=== PATIENT | male | born 1960 | race Caucasian/White ===

== ENCOUNTER 2020-11-17 09:06 | Outpatient (REF) | payer OTHER, SELFPAY ==
[2020-11-17 11:17] LABS: Alanine Aminotransferase 23 U/L (0-40); Albumin Level 4.2 g/dL (3.5-5.0); Alkaline Phosphatase 78 U/L (39-117); Anion Gap 17 (12-20); Aspartate Amino Transferase 17 U/L (5-37); Bilirubin Total 0.3 mg/dL (0.0-1.0); Blood Urea Nitrogen 38 mg/dL (9-16); Calcium 9.9 mg/dL (8.4-10.2); Carbon Dioxide 23 mmol/L (22-29); Chloride 100 mmol/L (96-108); Estimated Glomerular Filt Rate 37; Glucose Random 252 mg/dL (60-115); Potassium 4.6 mmol/L (3.3-5.1); Sodium 135 mmol/L (135-145); Total Protein 7.1 g/dL (6.5-8.0)
[2020-11-17 11:26] LABS: Creatinine Urine 252.58 mg/dL; Microalbum/Creatinine Ratio Ur 26.5 ug/mg cr
== END 2020-11-17 09:07 | disposition home or self-care (01) ==
LOC: HO.WFDLDS 09:06
PROVIDERS: Visit Provider Family Medicine
DX: E11.65 Type 2 diabetes mellitus with hyperglycemia (principal); I10 Essential (primary) hypertension
CPT/HCPCS: 36415; 80053; 82043

== ENCOUNTER 2021-03-04 09:46 | Outpatient (REF) | payer OTHER, SELFPAY ==
[2021-03-04 11:57] LABS: Anion Gap 15 (12-20); Blood Urea Nitrogen 32 mg/dL (9-16); Calcium 9.5 mg/dL (8.4-10.2); Carbon Dioxide 25 mmol/L (22-29); Chloride 102 mmol/L (96-108); Estimated Glomerular Filt Rate 43; Glucose Random 258 mg/dL (60-115); Potassium 4.8 mmol/L (3.3-5.1); Sodium 137 mmol/L (135-145)
== END 2021-03-04 09:47 | disposition home or self-care (01) ==
LOC: HO.WFDLDS 09:46
PROVIDERS: Visit Provider Family Medicine
DX: Z00.00 Encounter for general adult medical examination without abnormal findings (principal); N19 Unspecified kidney failure
CPT/HCPCS: 36415; 80048

== ENCOUNTER 2021-06-08 11:38 | Outpatient (REF) | payer OTHER, SELFPAY ==
--- NOTE | ~2021-06-08 | XR_ITS ---
EXAMINATION: XR RIBS, RIGHT CLINICAL INFORMATION: Pleurodynia COMPARISON: No prior imaging available at the time of dictation. TECHNIQUE: 3 views of the right ribs were obtained. One view of the chest was obtained XR/XR ribs RT min 3V w CXR1V FINDINGS/IMPRESSION: Mildly displaced right lateral sixth rib fracture. Questionable possible additional right posterior 10th rib fracture. If definitive characterization is warranted CT chest could be obtained. Lungs are clear. No consolidation, pneumothorax, or pleural effusion. The cardiomediastinal silhouette and pulmonary vasculature are normal.
== END 2021-06-08 11:39 | disposition home or self-care (01) ==
LOC: HO.XRAY 11:38
PROVIDERS: PCP Family Medicine; Visit Provider Family Medicine
DX: R07.81 Pleurodynia (principal)
CPT/HCPCS: 71101

== ENCOUNTER 2021-06-28 11:26 | Outpatient (REF) | payer OTHER, SELFPAY ==
[2021-06-28 14:16] LABS: Estimated Average Glucose 255 mg/dL; Hemoglobin A1c % 10.5 %
[2021-06-28 14:18] LABS: Anion Gap 15 (12-20); Blood Urea Nitrogen 27 mg/dL (9-16); Calcium 9.9 mg/dL (8.4-10.2); Carbon Dioxide 26 mmol/L (22-29); Chloride 104 mmol/L (96-108); Estimated Glomerular Filt Rate 54; Glucose Random 234 mg/dL (60-115); Potassium 4.8 mmol/L (3.3-5.1); Sodium 140 mmol/L (135-145)
[2021-06-28 14:30] LABS: Creatinine Urine 113.54 mg/dL; Microalbum/Creatinine Ratio Ur 425.4 ug/mg cr
[2021-06-28 14:44] LABS: Prostate Specific Antigen Scr 0.41 ng/mL (<0.05-4.0)
== END 2021-06-28 11:27 | disposition home or self-care (01) ==
LOC: HO.WFDLDS 11:26
PROVIDERS: Visit Provider Family Medicine
DX: Z00.00 Encounter for general adult medical examination without abnormal findings (principal); Z12.5 Encounter for screening for malignant neoplasm of prostate; N19 Unspecified kidney failure; I10 Essential (primary) hypertension; R73.01 Impaired fasting glucose
CPT/HCPCS: 36415; 80048; 82043; 83036; 84153

== ENCOUNTER 2021-06-28 11:59 | Outpatient (REF) | payer OTHER, SELFPAY ==
--- NOTE | ~2021-06-28 | XR_ITS ---
EXAMINATION: XR CHEST CLINICAL INFORMATION: Other nonspecific findings and symptoms involving the respiratory system. History of recent right rib fracture. COMPARISON: Previous chest and right rib x-rays May 2021 TECHNIQUE: 2 views of the chest were obtained. FINDINGS: The cardiac and mediastinal contours are stable. The lungs are clear. There is no pleural effusion or pneumothorax. There are displaced right lateral fifth and sixth rib fractures. There is adjacent pleural thickening. There are degenerative changes of the spine. XR/XR chest 2V IMPRESSION: Displaced right lateral fifth and sixth rib fractures and adjacent right lateral pleural thickening. No evidence for acute disease in the chest.
== END 2021-06-28 12:00 | disposition home or self-care (01) ==
LOC: HO.XRAY 11:59
PROVIDERS: PCP Family Medicine; Visit Provider Family Medicine
DX: R09.89 Other specified symptoms and signs involving the circulatory and respiratory systems (principal)
CPT/HCPCS: 71046

== ENCOUNTER 2022-02-22 09:17 | Outpatient (REF) | payer OTHER, SELFPAY ==
--- NOTE | ~2022-02-22 | XR_ITS ---
EXAMINATION: XR HAND, RIGHT XR HAND, LEFT CLINICAL INFORMATION: Pain in the right hand. COMPARISON: None TECHNIQUE: 3 views of each hand. FINDINGS: RIGHT HAND: Interphalangeal Joints: There is advanced osteoarthritis of the second and fifth DIP joint manifested by marked joint space narrowing and marginal osteophytes. Less prominent osteoarthritis of the IP joint of the thumb, third DIP joint and fourth DIP joint manifested by marked joint space narrowing and small marginal osteophytes. Metacarpophalangeal Joints: Normal Bone and Joints in the Wrist: Normal Arterial calcification. No marginal erosions. LEFT HAND: Interphalangeal Joints: There is severe osteoarthritic changes involving the second, fourth and fifth DIP joints manifested by joint space narrowing and marginal osteophytes. Less prominent mild osteoarthritic change of the third DIP joint and IP joint of the thumb result in joint space narrowing and marginal osteophytes. Metacarpophalangeal Joints: Unremarkable Wrist: Unremarkable Arterial calcification noted. XR/XR hand LT min 3V IMPRESSION: Right Hand: Osteoarthritis involving multiple joints with advanced osteoarthritis of the second and fifth DIP joints. Left Hand: Osteoarthritis involving multiple joints with advanced degenerative changes involving the second, fourth and fifth DIP joints.
--- NOTE | ~2022-02-22 | XR_ITS ---
EXAMINATION: XR KNEE, RIGHT CLINICAL INFORMATION: Pain in the right knee. COMPARISON: X-ray of the right knee June 2015 AP upright. TECHNIQUE: AP and lateral of the right knee. FINDINGS: Questionable lucency over the posterior tibial plateau on the lateral view only is not confirmed on the AP projection. Compartments unremarkable. No effusion. Arterial calcification present. XR/XR knee RT 2V IMPRESSION: Subtle lucency overlying the posterior lateral plateau of uncertain significance. This may be artifactual. Cannot exclude subtle nondisplaced incomplete fracture.
--- NOTE | ~2022-02-22 | XR_ITS ---
EXAMINATION: XR LUMBOSACRAL SPINE CLINICAL INFORMATION: Low back pain COMPARISON: None TECHNIQUE: Three views of the lumbosacral spine. FINDINGS: Vertebral bodies normally aligned. There is endplate osteophyte formation present at the L2-L3 or L3-L4 levels indicative of mild degenerative disc changes. Vertebral height normal without fracture. Facets unremarkable. Partially visualized pelvis including sacroiliac joints are normal. XR/XR lumbar spine 2-3V IMPRESSION: Mild multilevel spondylosis of lumbar sacral spine
--- NOTE | ~2022-02-22 | XR_ITS ---
EXAMINATION: XR HAND, RIGHT XR HAND, LEFT CLINICAL INFORMATION: Pain in the right hand. COMPARISON: None TECHNIQUE: 3 views of each hand. FINDINGS: RIGHT HAND: Interphalangeal Joints: There is advanced osteoarthritis of the second and fifth DIP joint manifested by marked joint space narrowing and marginal osteophytes. Less prominent osteoarthritis of the IP joint of the thumb, third DIP joint and fourth DIP joint manifested by marked joint space narrowing and small marginal osteophytes. Metacarpophalangeal Joints: Normal Bone and Joints in the Wrist: Normal Arterial calcification. No marginal erosions. LEFT HAND: Interphalangeal Joints: There is severe osteoarthritic changes involving the second, fourth and fifth DIP joints manifested by joint space narrowing and marginal osteophytes. Less prominent mild osteoarthritic change of the third DIP joint and IP joint of the thumb result in joint space narrowing and marginal osteophytes. Metacarpophalangeal Joints: Unremarkable Wrist: Unremarkable Arterial calcification noted. XR/XR hand RT min 3V IMPRESSION: Right Hand: Osteoarthritis involving multiple joints with advanced osteoarthritis of the second and fifth DIP joints. Left Hand: Osteoarthritis involving multiple joints with advanced degenerative changes involving the second, fourth and fifth DIP joints.
[2022-02-22 10:30] LABS: C Reactive Protein 0.38 mg/dL (< or = 0.50); Rheumatoid Factor < 15.0 IU/mL (<15.0)
[2022-02-22 10:50] LABS: Erythrocyte Sedimentation Rate 39 MM/HR (0-15)
== END 2022-02-22 09:18 | disposition home or self-care (01) ==
LOC: HO.LAB 09:17
PROVIDERS: PCP Family Medicine; Visit Provider Internal Medicine Rheumatology
DX: M79.641 Pain in right hand (principal); M79.642 Pain in left hand; M25.561 Pain in right knee; M54.50 Low back pain, unspecified; M25.50 Pain in unspecified joint
CPT/HCPCS: 36415; 72100; 73130; 73560; 85652; 86140; 86431

== ENCOUNTER 2022-03-20 15:12 | Outpatient (REF) | payer OTHER, SELFPAY ==
--- NOTE | ~2022-03-20 | MR_ITS ---
EXAMINATION: MR KNEE WITHOUT CONTRAST, RIGHT CLINICAL INFORMATION: Right knee pain medially. COMPARISON: Right knee radiographs dated 02/22/2022. TECHNIQUE: MRI of the knee without contrast was performed using routine sequences on a high-field scanner. FINDINGS: MENISCI: Medial Meniscus: Attenuation with increased oblique tibial articular surface signal through the posterior aspect of the meniscal body extending to the posterior horn. Lateral Meniscus: Mild inner margin fraying of the meniscal body. LIGAMENTS: Cruciate: Intact. Collateral: Intact. EXTENSOR MECHANISM: Intact. ARTICULAR CARTILAGE/BONE: Patellofemoral Compartment: Mild patellar articular cartilage signal heterogeneity with tiny marginal osteophytes. Medial Compartment: Within the medial aspect of the medial tibial plateau, there is focal cortical depression with underlying low T1/T2 signal measuring 0.6 x 0.4 cm (AP by ML). Prominent underlying marrow edema as well as adjacent periosteal and soft tissue edema, consistent with a nondisplaced subchondral fracture. Lateral Compartment: Intact articular cartilage. JOINT FLUID AND BURSAE: Trace joint effusion. MR/MR knee RT wo con IMPRESSION: 1. Oblique tibial articular surface tear of the posterior medial meniscal body and posterior horn. 2. Underlying, minimally depressed subchondral fracture within the adjacent medial tibial plateau with prominent associated marrow edema as well as adjacent soft tissue edema. 3. Minimal inner margin fraying of the lateral meniscal body. 4. Mild patellar arthrosis. Trace joint effusion.
== END 2022-03-20 15:13 | disposition home or self-care (01) ==
LOC: HO.MRI 15:12
PROVIDERS: Visit Provider Internal Medicine Rheumatology
DX: M25.561 Pain in right knee (principal)
CPT/HCPCS: 73721

== ENCOUNTER 2022-03-29 12:51 | Outpatient (REF) | payer OTHER, SELFPAY ==
[2022-03-29 14:28] LABS: Appearance Urine Clear; Color Urine Yellow; Glucose Urine UA Negative (Negative); Leukocyte Esterase Urine Negative (Negative); Nitrite Urine Negative (Negative); Urine Blood Negative (Negative); Urine Ketones Negative (Negative); Urine Protein Negative (Neg-Trace)
[2022-03-29 15:11] LABS: Alanine Aminotransferase 20 U/L (0-40); Albumin Level 4.4 g/dL (3.5-5.0); Alkaline Phosphatase 77 U/L (39-117); Anion Gap 18 (12-20); Aspartate Amino Transferase 16 U/L (5-37); Bilirubin Total 0.4 mg/dL (0.0-1.0); Blood Urea Nitrogen 30 mg/dL (9-16); Calcium 9.9 mg/dL (8.4-10.2); Carbon Dioxide 23 mmol/L (22-29); Chloride 102 mmol/L (96-108); Estimated Glomerular Filt Rate 51; Glucose Random 111 mg/dL (60-115); Potassium 4.7 mmol/L (3.3-5.1); Sodium 138 mmol/L (135-145); Total Protein 7.5 g/dL (6.5-8.0)
[2022-03-29 15:13] LABS: Creatinine Urine 75.35 mg/dL; Microalbum/Creatinine Ratio Ur 95.5 ug/mg cr
== END 2022-03-29 12:52 | disposition home or self-care (01) ==
LOC: HO.WFDLDS 12:51
PROVIDERS: Visit Provider Family Medicine
DX: Z00.00 Encounter for general adult medical examination without abnormal findings (principal); E11.65 Type 2 diabetes mellitus with hyperglycemia; I10 Essential (primary) hypertension
CPT/HCPCS: 36415; 80053; 81003; 82043

== ENCOUNTER 2022-04-26 11:05 | Outpatient (REF) | payer OTHER, SELFPAY ==
[2022-04-26 15:04] LABS: Influenza A PCR NEGATIVE (Negative); Influenza B PCR NEGATIVE (Negative); Resp Syncy Virus RNA Qual PCR NEGATIVE (Negative); SARS COV2 PCR INHOUSE NEGATIVE (Negative)
== END 2022-04-26 11:06 | disposition home or self-care (01) ==
LOC: HO.LAB 11:05
PROVIDERS: Visit Provider Nurse Practitioner Family
DX: Z20.822 Contact with and (suspected) exposure to COVID-19 (principal); R09.89 Other specified symptoms and signs involving the circulatory and respiratory systems
CPT/HCPCS: 0241U

== ENCOUNTER 2022-04-29 10:28 | Outpatient (REF) | payer OTHER, SELFPAY ==
--- NOTE | ~2022-04-29 | XR_ITS ---
EXAMINATION: XR CHEST CLINICAL INFORMATION: Cough. COMPARISON: 06/28/2021 chest radiographs. TECHNIQUE: 2 views of the chest were obtained. FINDINGS: No significant abnormality is noted involving the heart, lungs, mediastinum, bony thorax or soft tissues. XR/XR chest 2V IMPRESSION: No acute cardiopulmonary process.
== END 2022-04-29 10:29 | disposition home or self-care (01) ==
LOC: HO.HMGCX 10:28
PROVIDERS: PCP Family Medicine; Visit Provider Physician Assistant
DX: R05.9 Cough, unspecified (principal)
CPT/HCPCS: 71046

== ENCOUNTER 2022-07-05 10:03 | Outpatient (REF) | payer OTHER, SELFPAY ==
[2022-07-05 12:23] LABS: Anion Gap 17 (12-20); Blood Urea Nitrogen 28 mg/dL (9-16); Calcium 9.6 mg/dL (8.4-10.2); Carbon Dioxide 24 mmol/L (22-29); Chloride 103 mmol/L (96-108); Estimated Glomerular Filt Rate 49; Glucose Random 112 mg/dL (60-115); Potassium 4.8 mmol/L (3.3-5.1); Sodium 139 mmol/L (135-145)
== END 2022-07-05 10:04 | disposition home or self-care (01) ==
LOC: HO.WFDLDS 10:03
PROVIDERS: Visit Provider Family Medicine
DX: Z00.00 Encounter for general adult medical examination without abnormal findings (principal); N18.9 Chronic kidney disease, unspecified
CPT/HCPCS: 36415; 80048

== ENCOUNTER → 2022-09-13 13:29 | Outpatient (BNVA) | payer OTHER, SELFPAY | PROVIDERS: PCP Family Medicine; Visit Provider Internal Medicine Endocrinology, Diabetes & Metabolism | DX: E11.65 Type 2 diabetes mellitus with hyperglycemia (principal) | CPT/HCPCS: 82947 ==

== ENCOUNTER → 2022-10-30 08:53 | Outpatient (BNVA) | payer OTHER, SELFPAY | PROVIDERS: PCP Family Medicine; Visit Provider Dietitian, Registered | DX: E11.65 Type 2 diabetes mellitus with hyperglycemia (principal) | CPT/HCPCS: 97802 ==

== ENCOUNTER → 2022-11-14 07:55 | Outpatient (BNVA) | payer OTHER, SELFPAY | PROVIDERS: PCP Family Medicine; Visit Provider Registered Nurse Diabetes Educator ==

== ENCOUNTER 2022-12-11 10:17 | Outpatient (REF) | payer OTHER, SELFPAY | END 2022-12-11 10:18 | disposition home or self-care (01) | LOC: HO.LAB 10:17 | PROVIDERS: PCP Family Medicine; Visit Provider Internal Medicine Endocrinology, Diabetes & Metabolism | DX: E11.65 Type 2 diabetes mellitus with hyperglycemia (principal) | CPT/HCPCS: 36415; 80061 ==

== ENCOUNTER → 2022-12-14 07:59 | Outpatient (BNVA) | payer OTHER, SELFPAY | PROVIDERS: PCP Family Medicine; Visit Provider Internal Medicine Endocrinology, Diabetes & Metabolism ==

== ENCOUNTER 2022-12-25 09:06 | Outpatient (AMB) | payer OTHER, SELFPAY ==
[2022-12-25 09:18] VITALS: BMI 32.0
--- NOTE | 2022-12-25 09:18 | A.OFFVIS_ITS ---
Intake VS Expanded 12/25/22 09:18 Height 6 ft Weight 236 lb 5.369 oz BMI 32.0 Intake Visit Reasons: T2DM Allergies Penicillins [PENICILLINS] Allergy (Intermediate, Verified 12/14/22 08:05) RASH/HIVES Sulfa (Sulfonamide Antibiotics) Allergy (Unknown, Verified 12/14/22 08:05) Unknown HPI Nutrition Presentation Details Pt presents for MNT follow up for T2DM Pt reports working on including lean protein foods in diet and reducing on empty calorie snacks Typical meal B: high protein slim fast L: Sand with eggs salad, or turkey with lettuce /tomato, yogurt or may eat out (fish sand or burger small fries) D: swordfish and or poultry with potatoes and broccoli- following healthy plate method Snack : fruit or yogurt or glucerna bar or protein bars Pt reports taking one a day men's [employer] Hel[employer] multivitamin Physical activity: using stairs -however limited due to toe infection - reports he is followed by PCP, currently in treatment Most Recent Diabetes Results: Cholesterol 144 mg/dL 12/11/22 HDL Cholesterol 43 mg/dL 12/11/22 Triglycerides 93 mg/dL 12/11/22 Creatinine 1.46 mg/dL (0.5-1.4) H 07/05/22 Blood Urea Nitrogen 28 mg/dL (9-16) H 07/05/22 Sodium 139 mmol/L (135-145) 07/05/22 Potassium 4.8 mmol/L (3.3-5.1) 07/05/22 Chloride 103 mmol/L (96-108) 07/05/22 Carbon Dioxide 24 mmol/L (22-29) 07/05/22 Calcium 9.6 mg/dL (8.4-10.2) 07/05/22 [facility] Surgical History History of testicular surgery Hx of left knee surgery Family History Father No problems noted. Mother No problems noted. Social History Housing: House Alcohol intake: current Alcohol intake frequency: holidays/special occasions only Patient Tobacco Use Status: Never used Tobacco e-Cigarette/Vaping Use: Never Used Second Hand Smoke Exposure: No service: No Current occupational status: employed Current occupational exposures/hazards: No Cognitive needs: No Hearing needs: No Vision needs: Yes (glasses) Assessment & Plan Assessment & Plan (1) Type 2 diabetes mellitus with hyperglycemia: Code(s): E11.65 - Type 2 diabetes mellitus with hyperglycemia Plan wt 118 kg (10/2022) , wt : 107 kg ( 12/2022) Est kcal needs as per MSJ: 2408 (40% carb, 30% protein/fat) Est fluid needs as per 25-30 ml/d: 2572-1696 ml/d Est prot per day as per 1 g/kg bw: 118 Recommend fiber intake : 8-10 g per day and gradually increase to 35-38 g for men or as tolerated Recommend sodium intake per day : less than 1500 mg less than 2000 mg Educated patient on: ( R = reviewed V = verbalizes understanding N/R = needs review N/A = not applicable * Food sources of carbohydrate, adequate serving sizes and its role in various health conditions: R * Differences between complex carbohydrates a simple carbohydrates, role of fiber in diet: R * Differences between types of fats and role in diet (mono on saturated fat fatty acids, saturated fatty acids, trans fats): R * probiotic sources of foods : R * Food sources of sodium in salt and healthy modifications for heart health in kidney health: R * Vitamins and minerals: NR * Healthy plate method concept: R , V * Physical activity: Benefits a precaution: R, V * Hypoglycemia protocol (rule of 15): R * Dietary prevention of Hyperglycemia: R , V Patient Instructions: Include a serving of a probiotic source of foods in your diet - see list provided Keep hydrated by having water with meals Keep physically active as able Coding Level of Care Code Nutr Indiv Subseq (66422) Diagnoses Type 2 diabetes mellitus with hyperglycemia E11.65 Time Spent (min) 30
== END 2022-12-25 09:39 | disposition home or self-care (01) ==
PROVIDERS: PCP Family Medicine; Visit Provider Dietitian, Registered
DX: E11.65 Type 2 diabetes mellitus with hyperglycemia (principal)

== ENCOUNTER → 2022-12-25 09:06 | Outpatient (BNVA) | payer OTHER, SELFPAY | PROVIDERS: Visit Provider Dietitian, Registered | DX: E11.65 Type 2 diabetes mellitus with hyperglycemia (principal); Z71.3 Dietary counseling and surveillance | CPT/HCPCS: 97803 ==

== ENCOUNTER 2022-12-27 16:23 | Outpatient (AMB) | payer OTHER, SELFPAY ==
--- NOTE | 2022-12-27 16:38 | A.OFFPC_ITS ---
Vital Signs 12/27/22 16:43 Height 6 ft Weight 237 lb BMI 32.1 BP 126/78 Blood Pressure Location Lt brachial Position Sitting Pulse 79 Pulse Source Pulse Oximeter Pulse Oximetry (%) 97 Oxygen Delivery Method Room Air Intake Visit Reasons: f/u diabetes, hypertension and knee pain Intake Note: Patient is here with follow up on diabetes, hypertension, and right knee pain. Allergies Penicillins [PENICILLINS] Allergy (Intermediate, Verified 12/27/22 16:44) RASH/HIVES Sulfa (Sulfonamide Antibiotics) Allergy (Unknown, Verified 12/27/22 16:44) Unknown Medication List - Last Reconciled 12/27/22 by Mark Leavitt MD betamethasone dipropionate 0.05% 1 appl topical BID PRN blood sugar diagnostic (FreeStyle Lite Strips) DX: E11.9, test blood sugar 2 times a day, 90 days blood-glucose sensor (Global Experience G7 Sensor device) As directed change every 10 days cane As directed dapagliflozin propanediol (Farxiga) 5 mg PO DAILY hydrochlorothiazide 25 mg PO DAILY insulin glargine (Basaglar KwikPen U-100 Insulin) 34 units (0.34 mL) subcut DAILY insulin syringe-needle U-100 (BD Insulin Syringe Ultra-Fine) As directed lancets (FreeStyle Lancets) As directed levothyroxine 300 mcg PO DAILY 90 days meloxicam 15 mg PO DAILY metformin 500 mg PO BID metoprolol succinate ER 12.5 mg (1/2 x 25 mg) PO DAILY 30 days pen needle, diabetic (BD Bhavani 2nd Gen Pen Needle) Once Daily As directed, 90 days simvastatin 20 mg PO QPM 0 days sulfamethoxazole-trimethoprim 800-160 mg (Bactrim DS) 1 tab PO BID tirzepatide (Mounjaro) 5 mg (0.5 mL) subcut QWEEK valsartan 40 mg PO BID 90 days Tobacco use date assessed: 12/27/22 Fall risk assessment: No Falls in past year Dental Screening Dental Screen Date: 12/27/22 Did you have a dental visit in the last 12 months?: Yes Did you have a dental problem in the last 6 months where you did not have access to dental care?: No Was dental information given to patient?: No HPI f/u diabetes, hypertension and knee pain HPI Details 62 y/o male presents to f/u diabetes, hypertension, knee pain and renal failure. Had increased his basal insulin from 32 units b.i.d. to 34 units am and 32 units pm Had continued his glipizide, Trulicity and metformin. Had recently seen Dr. Kuhn, Endocrinology. Pt reports most recent A1c is 7.1%. Lipid panel drawn 12/11/22. Reviewed labs with pt. Triglycerides 93. TC 144. LDL 83. HDL 43. Blood pressure today is 126/78. He is on hydrochlorothiazide 25mg, metoprolol 12.5mg and valsartan 40mg b.i.d. He continues to use a gel for his knee pain which has been working. He has not been using his meloxicam. He is requesting audo testing. He reports has been noticing hearing changes. He has complaints of restless legs. [facility] Surgical History History of testicular surgery Hx of left knee surgery Family History Father No problems noted. Mother No problems noted. Social History Housing: House Alcohol intake: current Alcohol intake frequency: holidays/special occasions only Patient Tobacco Use Status: Never used Tobacco e-Cigarette/Vaping Use: Never Used Second Hand Smoke Exposure: No service: No Current occupational status: employed Current occupational exposures/hazards: No Cognitive needs: No Hearing needs: No Vision needs: Yes (glasses) Questionnaire Thrive Questionnaire Date Thrive assessed: 07/05/22 NATI-7 AMB Questionnaire NATI-7 Date NATI - 7 assessed: 07/05/22 Source: Developed by Drs. Malick Sanders, Ann Anthony, Yao Pacheco and colleagues, with an educational brigida from [employer]. Review of Systems Const Denies chills, Denies fatigue, Denies fever(s), Denies headache(s) and Denies weakness ENT Denies dizziness and Denies headache(s) Card Denies dyspnea Resp Denies cough, Denies dyspnea, Denies wheezing and Denies other (shortness of breath) Musc Denies numbness and Denies tingling Neuro Denies dizziness, Denies headache(s), Denies numbness, Denies tingling and Denies weakness Psych Denies anxiety and Denies depression Endo Denies fatigue Aller/Immun Denies wheezing Physical exam (Primary Care) Vital Signs: Last Vital Signs Pulse 79 12/27/22 16:43 BP 126/78 12/27/22 16:43 Pulse Ox 97 12/27/22 16:43 Oxygen Delivery Method Room Air 12/27/22 16:43 BMI result Body Mass Index 32.1 Tobacco/Smoking Status: Tobacco use Status Tobacco use date assessed 12/27/22 12/27/22 16:53 Patient Tobacco Use Status Never used Tobacco 12/27/22 16:39 e-Cigarette/Vaping Use Never Used 12/27/22 16:39 Thrive Assessment: Date of Thrive Assessment Date Thrive assessed 07/05/22 12/27/22 16:39 Const General: well developed; No acute distress Nutritional Appearance: well nourished Orientation/consciousness: patient oriented x3 HENMT Head: Yes normocephalic and Yes atraumatic Eyes General: appearance normal, both eyes and all related structures Pupils: Equal, round and reactive pupils present EOM: EOMs intact bilaterally Resp Effort & Inspection: normal respiratory effort Auscultation: clear to auscultation bilaterally Cardio Rate: regular rate Rhythm: regular rhythm Heart sounds: S1 normal heart sound present, S2 normal heart sound present, no gallops, no murmurs and no rubs Neuro General: patient oriented x3 and gait normal Cranial nerves: Yes Equal, round and reactive pupils present Psych Affect: normal affect Assessment and Plan Assessment & Plan (1) Hypertension, essential: Code(s): I10 - Essential (primary) hypertension Plan: Blood pressure is well controlled Goal is less than 140/90 Continue current medication regimen (2) Type 2 diabetes mellitus with hyperglycemia: Code(s): E11.65 - Type 2 diabetes mellitus with hyperglycemia Plan: Estimated A1c by continuous monitor is 7.1% Continue current medication regimen and follow-up with endocrinology, Dr. Kuhn (3) Chronic kidney disease: Code(s): N18.9 - Chronic kidney disease, unspecified Plan: History of mild chronic kidney disease Recheck creatinine level (4) Knee pain: Code(s): M25.569 - Pain in unspecified knee Plan: This resolved with injection therapy (5) Change in hearing: Code(s): H91.90 - Unspecified hearing loss, unspecified ear Plan: Check audiology (6) Neoplasm of uncertain behavior of skin: Code(s): D48.5 - Neoplasm of uncertain behavior of skin Plan: Left cheek lesion Referred to Dermatology (7) Restless leg syndrome: Code(s): G25.81 - Restless legs syndrome Plan: Check labs Briefly discussed medication but patient would like to think about this (8) Screening for colon cancer: Code(s): Z12.11 - Encounter for screening for malignant neoplasm of colon Orders: Orders Comprehensive Met. Panel Today N18.9 - Chronic kidney disease, unspecified Prostate Specific Antigen Scr Today N18.9 - Chronic kidney disease, unspecified, Z12.5 - Encounter for screening for malignant neoplasm of prostate Ferritin Today N18.9 - Chronic kidney disease, unspecified IRON PROFILE Today N18.9 - Chronic kidney disease, unspecified Microalbumin, Random (w Creat) Today I10 - Essential (primary) hypertension, N18.9 - Chronic kidney disease, unspecified Complete Blood Count Auto Diff Today N18.9 - Chronic kidney disease, unspecified, Z00.00 - Encounter for general adult medical examination without abnormal findings UA and rflx microscopic Today N18.9 - Chronic kidney disease, unspecified, Z 00.00 - Encounter for general adult medical examination without abnormal findings Referrals Audiology Referral H91.90 - Unspecified hearing loss, unspecified ear Gastroenterology Referral Z12.11 - Encounter for screening for malignant neoplasm of colon Dermatology Referral D48.5 - Neoplasm of uncertain behavior of skin Coding Level of Care Code Est Pt Level 4 (35869) Diagnoses Hypertension, essential I10 Type 2 diabetes mellitus with hyperglycemia E11.65 Chronic kidney disease N18.9 Knee pain M25.569 Change in hearing H91.90 Neoplasm of uncertain behavior of skin D48.5 Restless leg syndrome G25.81 Screening for colon cancer Z12.11
[2022-12-27 16:43] VITALS: BP 126/78; PULSE 79; O2SAT 97; BMI 32.1
== END 2022-12-27 17:49 | disposition home or self-care (01) ==
PROVIDERS: PCP Family Medicine; Visit Provider Family Medicine
DX: I12.9 Hypertensive chronic kidney disease with stage 1 through stage 4 chronic kidney disease, or unspecified chronic kidney disease (principal); E11.65 Type 2 diabetes mellitus with hyperglycemia; N18.9 Chronic kidney disease, unspecified; D48.5 Neoplasm of uncertain behavior of skin; G25.81 Restless legs syndrome; Z12.11 Encounter for screening for malignant neoplasm of colon
CPT/HCPCS: 99214

== ENCOUNTER 2022-12-28 07:42 | Outpatient (REF) | payer OTHER, SELFPAY ==
[2022-12-28 07:54] LABS: MANUAL DIFF FLAG NO
[2022-12-28 09:13] LABS: Basophils Percent Auto 0.5 % (0-2); Eosinophils Absolute Auto 0.1 X10*3/uL (0.0-0.4); Hematocrit 33.5 % (42.0-52.0); Hemoglobin 10.9 g/dl (14.0-18.0); Imm Gran Abs Auto 0.01 X10*3/uL (0.00-0.03); Imm Gran Pct Auto 0.2 % (0.0-0.4); Lymphocytes Absolute Auto 1.8 X10*3/uL (1.2-4.9); Lymphocytes Percent Auto 29.1 % (20-40); Mean Corpuscular HGB Conc 32.5 g/dl (31.0-36.0); Mean Corpuscular Hemoglobin 27.3 pg (27.0-33.0); Mean Corpuscular Volume 83.8 fL (80.0-98.0); Mean Platelet Volume 9.3 fL (9.4-12.4); Monocytes Absolute Auto 0.7 X10*3/uL (0.1-1.2); Monocytes Percent Auto 11.8 % (2-11); Neutrophils Absolute Auto 3.4 x10*3/uL (2.0-8.3); Neutrophils Percent Auto 56.4 % (45-73); Platelet Count 303 X10*3/uL (160-400); Red Cell Distribution Width 13.2 % (11.0-16.0)
[2022-12-28 09:39] LABS: Appearance Urine Clear; Color Urine Yellow; Glucose Urine UA 500 mg/dL (Negative); Leukocyte Esterase Urine Negative (Negative); Nitrite Urine Negative (Negative); Specific Gravity - Urine 1.025 (1.005-1.025); Urine Blood Negative (Negative); Urine Ketones Trace mg/dL (Negative); Urine Protein Negative (Neg-Trace)
[2022-12-28 09:56] LABS: Prostate Specific Antigen Scr 0.46 ng/mL (<0.05-4.0)
[2022-12-28 10:03] LABS: Ferritin 93 ng/mL (20-250)
[2022-12-28 10:04] LABS: Alanine Aminotransferase 23 U/L (0-40); Albumin Level 4.1 g/dL (3.5-5.0); Alkaline Phosphatase 87 U/L (39-117); Anion Gap 15 (12-20); Aspartate Amino Transferase 17 U/L (5-37); Bilirubin Total 0.3 mg/dL (0.0-1.0); Blood Urea Nitrogen 52 mg/dL (9-16); Calcium 9.7 mg/dL (8.4-10.2); Carbon Dioxide 21 mmol/L (22-29); Chloride 103 mmol/L (96-108); Estimated Glomerular Filt Rate 25; Free T4 (Free Thyroxine) 1.41 ng/dL (0.71-1.85); Glucose Random 156 mg/dL (60-115); Iron 54 mcg/dL (45-160); Percent Iron Saturation 18 % (15-50); Potassium 4.3 mmol/L (3.3-5.1); Sodium 135 mmol/L (135-145); Thyroid Stimulating Hormone < 0.01 uIU/mL (0.32-4.0); Total Iron Binding Capacity 305 mcg/dL (228-428); Total Protein 7.5 g/dL (6.5-8.0); Unsaturated Iron Binding 251 ug/dL
[2022-12-28 10:55] LABS: Estimated Average Glucose 146 mg/dL; Hemoglobin A1c % 6.7 %
[2022-12-28 11:17] LABS: Creatinine Urine 222.36 mg/dL; Microalbum/Creatinine Ratio Ur 8.9 ug/mg cr
== END 2022-12-28 07:43 | disposition home or self-care (01) ==
LOC: HO.LAB 07:42
PROVIDERS: Absent Provider Internal Medicine Endocrinology, Diabetes & Metabolism; PCP Family Medicine; Visit Provider Family Medicine
DX: Z00.00 Encounter for general adult medical examination without abnormal findings (principal); Z12.5 Encounter for screening for malignant neoplasm of prostate; I12.9 Hypertensive chronic kidney disease with stage 1 through stage 4 chronic kidney disease, or unspecified chronic kidney disease; E11.22 Type 2 diabetes mellitus with diabetic chronic kidney disease; N18.9 Chronic kidney disease, unspecified; E11.65 Type 2 diabetes mellitus with hyperglycemia
CPT/HCPCS: 36415; 80053; 81003; 82043; 82728; 83036; 83540; 84153; 84439; 84443; 85025

== ENCOUNTER 2023-02-13 08:02 | Outpatient (AMB) | payer OTHER, SELFPAY ==
--- NOTE | 2023-02-13 08:40 | A.OFFVIS_ITS ---
Intake Intake Visit Reasons: DM with [employer] Field Checker Required: No Accompanied by: Self / Same As Patient Allergies Penicillins [PENICILLINS] Allergy (Intermediate, Verified 12/27/22 16:44) RASH/HIVES Sulfa (Sulfonamide Antibiotics) Allergy (Unknown, Verified 12/27/22 16:44) Unknown HPI Comprehensive Diabetes Asmnt Most Recent Diabetes Results: Microalb/Creat Ratio 8.9 ug/mg cr 12/28/22 Cholesterol 144 mg/dL 12/11/22 HDL Cholesterol 43 mg/dL 12/11/22 Triglycerides 93 mg/dL 12/11/22 Creatinine 2.57 mg/dL (0.5-1.4) H 12/28/22 Blood Urea Nitrogen 52 mg/dL (9-16) H 12/28/22 Sodium 135 mmol/L (135-145) 12/28/22 Potassium 4.3 mmol/L (3.3-5.1) 12/28/22 Chloride 103 mmol/L (96-108) 12/28/22 Carbon Dioxide 21 mmol/L (22-29) L 12/28/22 Calcium 9.7 mg/dL (8.4-10.2) 12/28/22 AST 17 U/L (5-37) 12/28/22 ALT 23 U/L (0-40) 12/28/22 Total Protein 7.5 g/dL (6.5-8.0) 12/28/22 Albumin 4.1 g/dL (3.5-5.0) 12/28/22 PFSH Surgical History History of testicular surgery Hx of left knee surgery Family History Father No problems noted. Mother No problems noted. Social History Housing: House Alcohol intake: current Alcohol intake frequency: holidays/special occasions only Patient Tobacco Use Status: Never used Tobacco e-Cigarette/Vaping Use: Never Used Second Hand Smoke Exposure: No service: No Current occupational status: employed Current occupational exposures/hazards: No Cognitive needs: No Hearing needs: No Vision needs: Yes (glasses) Assessment & Plan Assessment & Plan (1) Type 2 diabetes mellitus with hyperglycemia: Code(s): E11.65 - Type 2 diabetes mellitus with hyperglycemia Plan: Learning objectives: The patient was provided with verbal and written education on the following topics as outlined below. Patient able to download Dexcom clarity on smart and reset Dexcom password. Patient is now sharing Dexcom G7 data Patient questions/concerns, patient has lost approximately 20 lb since starting Mounjaro in October 2022. Is currently taking metformin 500 mg b.i.d. Farxiga 5 mg daily Basaglar 35 units daily Mounjaro 5 mg weekly Last A1c on 12/28/2022 6.7% Patient's average glucose for the past 2 weeks 161 mg/dL Above target 27% At target 72% Below target 1% Reviewed with patient how to treat hypoglycemia with rule of 15s, discussed with patient as weight reduces insulin demand may also be reduced. Watch for increased episodes of hypoglycemia, especially overnight or in the a. m. when you wake up. If you notice any increase in hypoglycemic events please contact Diabetes Education nurse or Dr. Kuhn. The patient met all learning objectives and was able to verbalize understanding and provide teach back of education topics discussed . The patient was provided with the opportunity to ask questions and all questions were answered. Topics covered in today?s session included: Medications (If applicable) ? Name of medication? Dosing/administration instructions? Mechanism of action? Potential side effects? Potential adverse reaction and appropriate treatment? Review onset, peak, duration Assess for concerns re: insurance coverage, cost, barriers to compliance Insulin/Injectables (If applicable) ? Storage/care of insulin? Injection sites? Site rotation? Onset, peak, duration ? Drawing up insulin? Injecting insulin/other injectables? Sharps disposal Continuous blood glucose monitoring (if applicable) Hypoglycemia and Hyperglycemia ? Signs and symptoms? Causes? Treatment? Preventing hypoglycemia? When to seek medical attention ?Blood glucose targets and how you feel when your blood glucose is in and out of your target ranges. ?Monitoring and knowing your A1C. ?What can make blood glucose go up and down and preventing high and low blood glucose. ?Review of blood sugar targets in expected goal range and outside of expected goal range. ?Problem solving and preventing hyper/hypoglycemia. ?Sick day management of diabetes. ?Using blood sugar results in decision making process in managing diabetes. ?Patient was receptive to information provided and participated in the discussion. Asked?appropriate questions and demonstrated good understanding of the topics discussed.? ? Educational Materials: The patient was provided with the following written educational materials: Target Goal handout Smart Goal Assessment:? Patient did not produce basal insulin from 35-30 units daily. Overnight hypoglycemia has resolved. Pt met goal less than 25% New Smart Goal: Patient will reduce carbohydrate portion at suppertime to be between 45-60 g per meal Patient Response to instructions: Comprehension of Instructions: Readiness to make changes:? 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
== END 2023-02-13 08:43 | disposition home or self-care (01) ==
PROVIDERS: PCP Family Medicine; Visit Provider Registered Nurse Diabetes Educator
DX: E11.65 Type 2 diabetes mellitus with hyperglycemia (principal)

== ENCOUNTER → 2023-02-13 08:02 | Outpatient (BNVA) | payer OTHER, SELFPAY | PROVIDERS: PCP Family Medicine; Visit Provider Registered Nurse Diabetes Educator | DX: E11.65 Type 2 diabetes mellitus with hyperglycemia (principal); Z79.4 Long term (current) use of insulin | CPT/HCPCS: 99211 ==

== ENCOUNTER 2023-02-13 09:45 | Outpatient (AMB) | payer OTHER, SELFPAY ==
--- NOTE | 2023-02-13 09:52 | A.OFFPC_ITS ---
Vital Signs 02/13/23 10:00 Height 6 ft Weight 228 lb 8 oz BMI 31.0 BP 108/42 L Blood Pressure Location Rt brachial Position Sitting Respiration 14 Pulse 82 Pulse Source Pulse Oximeter Temp 98.9 F Temp Source Oral Pulse Oximetry (%) 99 Oxygen Delivery Method Room Air Intake Visit Reasons: renal insufficiency Intake Note: Patient is here to follow up with CKD. Patient reports he is seen by Dr. Kuhn for endocrinology. His last appointment was on 12/14/22 with a predicted A1C of 6.7%. 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: No Accompanied by: Self / Same As Patient Allergies Penicillins [PENICILLINS] Allergy (Intermediate, Verified 02/13/23 10:02) RASH/HIVES Sulfa (Sulfonamide Antibiotics) Allergy (Unknown, Verified 02/13/23 10:02) Unknown Tobacco use date assessed: 12/27/22 Fall risk assessment: No Falls in past year Last assessed Fall Risk: 02/13/23 Dental Screening Dental Screen Date: 02/13/23 Did you have a dental visit in the last 12 months?: No Did you have a dental problem in the last 6 months where you did not have access to dental care?: No Was dental information given to patient?: Patient has dentist HPI renal insufficiency HPI Details 62 y/o male presents to f/u renal insufficiency. Labs were drawn 12/28/22. Creatinine level worsened from 1.46 to 2.57. A1c 6.7%. Blood pressure today 108/42. He is on hydrochlorothiazide 25mg, metoprolol 12.5mg and valsartan 40mg b.i.d. Pt describes symptoms of lightheadedness. HPI Comments History of Present Illness Details Documentation assistance for Mark Leavitt MD, was provided by Frandy Banerjee,? Foam Rubber Mixer on 02/13/2023 10:30 AM BENNETT. I, Dr. Leavitt, have read, observed, and verified documentation.? PFSH Surgical History History of testicular surgery Hx of left knee surgery Family History Father No problems noted. Mother No problems noted. Social History Housing: House Alcohol intake: current Alcohol intake frequency: holidays/special occasions only Patient Tobacco Use Status: Never used Tobacco e-Cigarette/Vaping Use: Never Used Second Hand Smoke Exposure: No service: No Current occupational status: employed Current occupational exposures/hazards: No Cognitive needs: No Hearing needs: No Vision needs: Yes (glasses) Questionnaire Thrive Questionnaire Date Thrive assessed: 07/05/22 NATI-7 AMB Questionnaire NATI-7 Date NATI - 7 assessed: 07/05/22 Source: Developed by Drs. Malick Sanders, Ann Anthony, Yao Pacheco and colleagues, with an educational brigida from [employer]. Review of Systems Const Denies chills, Denies fatigue, Denies fever(s), Denies headache(s) and Denies weakness ENT Denies dizziness and Denies headache(s) Card Denies chest pain, Denies lightheadedness, Denies dyspnea and Denies other (Palpitations) Resp Denies cough, Denies dyspnea, Denies wheezing and Denies other ( shortness of breath) Musc Denies numbness and Denies tingling Neuro Denies dizziness, Denies headache(s), Denies numbness, Denies tingling, Denies paresthesias and Denies weakness Psych Denies anxiety and Denies depression Endo Denies fatigue Aller/Immun Denies wheezing Physical exam (Primary Care) Vital Signs: Last Vital Signs Temp 98.9 F 02/13/23 10:00 Pulse 82 02/13/23 10:00 Resp 14 02/13/23 10:00 BP 108/42 L 02/13/23 10:00 Pulse Ox 99 02/13/23 10:00 Oxygen Delivery Method Room Air 02/13/23 10:00 BMI result Body Mass Index 31.0 Tobacco/Smoking Status: Tobacco use Status Tobacco use date assessed 12/27/22 02/13/23 09:53 Patient Tobacco Use Status Never used Tobacco 02/13/23 09:53 e-Cigarette/Vaping Use Never Used 02/13/23 09:53 Thrive Assessment: Date of Thrive Assessment Date Thrive assessed 07/05/22 02/13/23 09:53 Const General: no acute distress and well developed Nutritional Appearance: well nourished Orientation/consciousness: patient oriented x3 HENHI Head: Yes normocephalic and Yes atraumatic Eyes General: appearance normal, both eyes and all related structures Pupils: Equal, round and reactive pupils present EOM: EOMs intact bilaterally Resp Effort & Inspection: normal respiratory effort Auscultation: clear to auscultation bilaterally Cardio Rate: regular rate Rhythm: regular rhythm Heart sounds: S1 normal heart sound present, S2 normal heart sound present, no gallops, no murmurs and no rubs Neuro General: patient oriented x3 and gait normal Cranial nerves: Yes Equal, round and reactive pupils present Psych Affect: normal affect Assessment and Plan Assessment & Plan (1) Chronic kidney disease: Code(s): N18.9 - Chronic kidney disease, unspecified Plan: Rising creatinine level. Also lower blood pressures. He will decrease hydrochlorothiazide and if systolic blood pressure remains less than 130 he can discontinue hydrochlorothiazide altogether. For now, continue valsartan. Also continue metformin as part of blood sugar regimen. He will get his creatinine level recheck today. Will also recheck prior to his next visit. He has an upcoming appointment with a new operations administrative assistant: Dr Angie Hanna [facility] We will follow-up shortly after this visit to review renal function and blood pressure as well as recommendations from his new operations administrative assistant. (2) Hypertension, essential: Code(s): I10 - Essential (primary) hypertension Plan: Blood pressures are a little low and patient has been mildly symptomatic Decreasing hydrochlorothiazide as described above (3) Type 2 diabetes mellitus with hyperglycemia: Code(s): E11.65 - Type 2 diabetes mellitus with hyperglycemia Plan: Follow-up with Dr. Kuhn as recommended (4) Restless leg syndrome: Code(s): G25.81 - Restless legs syndrome Plan: Mild symptoms. We can readdress this at a subsequent visit. Orders: Orders Basic Metabolic Panel Today N18.9 - Chronic kidney disease, unspecified, Z00.00 - Encounter for general adult medical examination without abnormal findings UA and rflx microscopic Today N18.9 - Chronic kidney disease, unspecified, Z00.00 - Encounter for general adult medical examination without abnormal findings Microalbumin, Random (w Creat) Today I10 - Essential (primary) hypertension, N18.9 - Chronic kidney disease, unspecified Basic Metabolic Panel 2 Weeks N18.9 - Chronic kidney disease, unspecified, Z00.00 - Encounter for general adult medical examination without abnormal findings Medications: Changed From hydrochlorothiazide 25 mg PO DAILY 90 tabs 0RF To hydrochlorothiazide 12.5 mg PO DAILY 30 days 30 tabs 1RF Coding Level of Care Code Est Pt Level 4 (36890) Diagnoses Chronic kidney disease N18.9 Hypertension, essential I10 Type 2 diabetes mellitus with hyperglycemia E11.65 Restless leg syndrome G25.81
[2023-02-13 10:00] VITALS: BP 108/42; PULSE 82; RESP 14; TEMP 37.2; O2SAT 99; BMI 31.0
== END 2023-02-13 10:43 | disposition home or self-care (01) ==
PROVIDERS: PCP Family Medicine; Visit Provider Family Medicine
DX: I12.9 Hypertensive chronic kidney disease with stage 1 through stage 4 chronic kidney disease, or unspecified chronic kidney disease (principal); N18.9 Chronic kidney disease, unspecified; E11.65 Type 2 diabetes mellitus with hyperglycemia; G25.81 Restless legs syndrome
CPT/HCPCS: 99214

== ENCOUNTER 2023-02-13 10:48 | Outpatient (REF) | payer OTHER, SELFPAY ==
[2023-02-13 14:30] LABS: Appearance Urine Clear; Color Urine Dark Yellow; Glucose Urine UA Negative (Negative); Leukocyte Esterase Urine Negative (Negative); Nitrite Urine Negative (Negative); PH 5.5 (5.0-9.0); Specific Gravity - Urine 1.015 (1.005-1.025); Urine Blood Negative (Negative); Urine Ketones Negative (Negative); Urine Protein Negative (Neg-Trace)
[2023-02-13 15:35] LABS: Creatinine Urine 146.56 mg/dL; Microalbum/Creatinine Ratio Ur 15.6 ug/mg cr (<30)
[2023-02-13 16:05] LABS: Anion Gap 13 (12-20); Blood Urea Nitrogen 25 mg/dL (9-16); Calcium 9.7 mg/dL (8.4-10.2); Carbon Dioxide 25 mmol/L (22-29); Chloride 105 mmol/L (96-108); Estimated Glomerular Filt Rate 59; Glucose Random 146 mg/dL (60-115); Potassium 4.5 mmol/L (3.3-5.1); Sodium 138 mmol/L (135-145)
== END 2023-02-13 10:49 | disposition home or self-care (01) ==
LOC: HO.WFDLDS 10:48
PROVIDERS: Visit Provider Family Medicine
DX: Z00.00 Encounter for general adult medical examination without abnormal findings (principal); E11.65 Type 2 diabetes mellitus with hyperglycemia; E11.22 Type 2 diabetes mellitus with diabetic chronic kidney disease; I12.9 Hypertensive chronic kidney disease with stage 1 through stage 4 chronic kidney disease, or unspecified chronic kidney disease; N18.9 Chronic kidney disease, unspecified; Z79.899 Other long term (current) drug therapy
CPT/HCPCS: 36415; 80048; 81003; 82043; 82570

== ENCOUNTER 2023-04-04 15:55 | Outpatient (AMB) | payer OTHER, SELFPAY ==
[2023-04-04 15:59] VITALS: BP 120/68; PULSE 82; O2SAT 98; BMI 29.8
--- NOTE | 2023-04-04 15:59 | A.OFFPC_ITS ---
Vital Signs 04/04/23 15:59 Height 6 ft Weight 220 lb BMI 29.8 BP 120/68 Blood Pressure Location Lt brachial Position Sitting Pulse 82 Pulse Source Pulse Oximeter Pulse Oximetry (%) 98 Oxygen Delivery Method Room Air Intake Visit Reasons: CPE with f/u labs and health maintenance Intake Note: Patient is here for his physical today. Patient states glucose is 7.6 average today. Allergies Penicillins [PENICILLINS] Allergy (Intermediate, Verified 04/04/23 16:03) RASH/HIVES Sulfa (Sulfonamide Antibiotics) Allergy (Unknown, Verified 04/04/23 16:03) Unknown Tobacco use date assessed: 01/10/23 Fall risk assessment: No Falls in past year Last assessed Fall Risk: 04/04/23 Dental Screening Dental Screen Date: 04/04/23 Did you have a dental visit in the last 12 months?: Yes Did you have a dental problem in the last 6 months where you did not have access to dental care?: No Was dental information given to patient?: Patient has dentist HPI CPE with f/u labs and health maintenance HPI Details 62 y/o male presents for a CPE with f/u labs and health maintenance. No recent CPE-labs to review. TSH drawn 12/18/22 <0.01 Blood pressure today 120/68. He is on valsartan 40mg b.i.d., hydrochlorothiazide 12.5mg and metoprolol 12.5mg daily. He reports morning blood sugars have been in the 80-120 range. He is on Farxiga 5mg, insulin glargine 34 units, metformin 500mg b.i.d. [facility] Surgical History History of testicular surgery Hx of left knee surgery Family History Father No problems noted. Mother No problems noted. Social History Housing: House Alcohol intake: current Alcohol intake frequency: holidays/special occasions only Patient Tobacco Use Status: Never used Tobacco e-Cigarette/Vaping Use: Never Used Second Hand Smoke Exposure: No service: No Current occupational status: employed Current occupational exposures/hazards: No Cognitive needs: No Hearing needs: No Vision needs: Yes (glasses) Questionnaire Thrive Questionnaire Date Thrive assessed: 07/05/22 NATI-7 AMB Questionnaire NATI-7 Date NATI - 7 assessed: 07/05/22 Source: Developed by Drs. Malick Sanders, Ann Anthony, Yao Pacheco and colleagues, with an educational brigida from [employer]. Review of Systems Const Denies chills, Denies fatigue, Denies fever(s), Denies headache(s) and Denies weakness Eyes Denies change in vision ENT Denies dizziness, Denies headache(s), Denies hearing loss, Denies nasal congestion, Denies sinus pain, Denies sinus pressure and Denies sore throat Card Denies chest pain, Denies lightheadedness, Denies dyspnea and Denies other (palpitations) Resp Denies cough, Denies dyspnea and Denies wheezing GI Denies abdominal pain, Denies melena, Denies hematochezia, Denies change in bowel habits, Denies dyspepsia and Denies nausea Denies hematuria and Denies dysuria Musc Denies abnormal gait, Denies myalgias, Denies arthralgias, Denies numbness and Denies tingling Skin/Breast Denies rash, Denies unusual bruising and Denies wounds Neuro Denies abnormal gait, Denies dizziness, Denies headache(s), Denies memory loss, Denies numbness, Denies Sensory deficit (Neuro), Denies tingling and Denies weakness Psych Denies anxiety, Denies depression and Denies memory loss Endo Denies cold intolerance, Denies fatigue, Denies heat intolerance, Denies polydipsia and Denies polyuria Jasvir/Lymph Denies easy bleeding and Denies easy bruising Aller/Immun Denies wheezing Physical exam (Primary Care) Vital Signs: Last Vital Signs Pulse 82 04/04/23 15:59 BP 120/68 04/04/23 15:59 Pulse Ox 98 04/04/23 15:59 Oxygen Delivery Method Room Air 04/04/23 15:59 BMI result Body Mass Index 29.8 Tobacco/Smoking Status: Tobacco use Status Tobacco use date assessed 01/10/23 04/04/23 16:09 Patient Tobacco Use Status Never used Tobacco 04/04/23 16:09 e-Cigarette/Vaping Use Never Used 04/04/23 16:09 Thrive Assessment: Date of Thrive Assessment Date Thrive assessed 07/05/22 04/04/23 16:09 Const General: no acute distress, well developed, alert and awake Nutritional Appearance: well nourished Orientation/consciousness: patient oriented x3 HENMT Head: Yes normocephalic and Yes atraumatic Ears: hearing grossly normal bilaterally and TM's normal bilaterally General nose exam: Normal external nose present and Normal nares present Mouth: Normal oral and palatal mucosa present and moist mucous membranes Teeth and gingiva: dentition normal Throat: Yes posterior oropharynx normal Eyes General: appearance normal, both eyes and all related structures Pupils: Equal, round and reactive pupils present and Pupil accommodation reflex normal EOM: EOMs intact bilaterally Neck Neck: Yes normal visual inspection, Yes no lymphadenopathy and Yes trachea midline Thyroid: Thyroid normal Carotids: no bruits Lymphatic: no lymphadenopathy noted Chest Chest palpation & inspection: normal inspection of the chest Resp Effort & Inspection: normal respiratory effort Auscultation: clear to auscultation bilaterally Cardio Rate: regular rate Rhythm: regular rhythm Heart sounds: S1 normal heart sound present, S2 normal heart sound present, no gallops, no murmurs and no rubs Bruits: no abdominal aortic bruits and no carotid bruits GI Palpation (GI): No Abdominal aortic bruit present, Soft to palpation, nontender, No hepatosplenomegaly present and No Rebound tenderness present Auscultation: normal bowel sounds General: Yes no CVA tenderness Back/Spine/Pelvis Back: no CVA tenderness Cervical Spine: cervical ROM normal and No Cervical spine tenderness Thoracic/Lumbar Spine: thoraco-lumbar ROM normal, No pain with thoraco-lumbar ROM, No thoracic spinal tenderness and No lumbar spinal tenderness Skin Lesions: no lesions Rashes: no rashes Trauma: no lacerations or abrasions Wounds: no wounds Nails: normal Neuro General: patient oriented x3 Cranial nerves: Yes Equal, round and reactive pupils present Cognition (Neuro): normal cognition Gait exam (Neuro): Normal gait present Motor exam (neuro): 5/5 motor strength present throughout Sensory Exam: No Sensory deficit (Neuro) Deep tendon reflexes (DTR's): Right patellar reflex intensity grade: 2+ and Left patellar reflex intensity grade: 2+ Extrem General: Yes normal to inspection and No edema Psych Appearance: grossly normal Affect: normal affect Attitude: cooperative Thought process: Normal thought process present Assessment and Plan Assessment & Plan (1) Chronic kidney disease: Code(s): N18.9 - Chronic kidney disease, unspecified Plan: Renal?function?had?improved?at?last?lab?check Had?decreased?hydrochlorothiazide?which?may?help?prevent?renal?insufficiency?in? the?future.??Added?metoprolol?to?cover?blood?pressure Blood?pressure?is?well?controlled He?is?followed?by?Nephrology (2) Hypertension, essential: Code(s): I10 - Essential (primary) hypertension Plan: As?above,?blood?pressure?is?well?controlled.??Goal?is?less?than?130/80 Continue?current?medication (3) Low TSH level: Code(s): R79.89 - Other specified abnormal findings of blood chemistry Plan: TSH?was?suppressed?at?last?check?in?December Will?repeat?this?and?if?still?suppressed,?will?discuss?decreasing?levothyroxine (4) Screening for prostate cancer: Code(s): Z12.5 - Encounter for screening for malignant neoplasm of prostate Plan: PSA?is?within?normal?limits (5) Screening for colon cancer: Code(s): Z12.11 - Encounter for screening for malignant neoplasm of colon Plan: He?said?he?checked?with?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 ?Ghulam?and?was?told?to?follow-up?5?years?from?now Up-to-date (6) Anemia: Code(s): D64.9 - Anemia, unspecified Plan: Stable?normocytic?anemia?likely?secondary?to?renal?failure Will?follow (7) Adult general medical examination: Code(s): Z00.00 - Encounter for general adult medical examination without abnormal findings Plan: 62-year-old?male?presents?for?extended?exam Orders: Orders Microalbumin, Random (w Creat) Today I10 - Essential (primary) hypertension Thyroid Stimulating Hormone Today E03.9 - Hypothyroidism, unspecified Thyroid Stimulating Hormone 1 Day E03.9 - Hypothyroidism, unspecified, R79.89 - Other specified abnormal findings of blood chemistry Triiodothyronine T3 Total 1 Day E03.9 - Hypothyroidism, unspecified, R79.89 - Other specified abnormal findings of blood chemistry Comprehensive Roland. Panel Fast Today Z00.00 - Encounter for general adult medical examination without abnormal findings Lipid Panel Today Z00.00 - Encounter for general adult medical examination without abnormal findings Prostate Specific Antigen Scr Today Z12.5 - Encounter for screening for malignant neoplasm of prostate Triiodothyronine T3 Total Today E03.9 - Hypothyroidism, unspecified Free T4 (Free Thyroxine) Today E03.9 - Hypothyroidism, unspecified Basic Metabolic Panel Today N18.9 - Chronic kidney disease, unspecified, Z00.00 - Encounter for general adult medical examination without abnormal findings Free T4 (Free Thyroxine) 1 Day E03.9 - Hypothyroidism, unspecified, R79.89 - Other specified abnormal findings of blood chemistry Complete Blood Count Auto Diff Today D64.9 - Anemia, unspecified Coding Level of Care Code Est Pt Level 3 (04500) Est Pt Prev Care 40-64y(82457) Diagnoses Chronic kidney disease N18.9 Hypertension, essential I10 Low TSH level R79.89 Screening for prostate cancer Z12.5 Screening for colon cancer Z12.11 Anemia D64.9 Adult general medical examination Z00.00
== END 2023-04-04 16:41 | disposition home or self-care (01) ==
PROVIDERS: PCP Family Medicine; Visit Provider Family Medicine
DX: Z00.00 Encounter for general adult medical examination without abnormal findings (principal); I12.9 Hypertensive chronic kidney disease with stage 1 through stage 4 chronic kidney disease, or unspecified chronic kidney disease; N18.9 Chronic kidney disease, unspecified; R79.89 Other specified abnormal findings of blood chemistry; Z12.5 Encounter for screening for malignant neoplasm of prostate; Z12.11 Encounter for screening for malignant neoplasm of colon; D64.9 Anemia, unspecified
CPT/HCPCS: 99396

== ENCOUNTER 2023-04-24 10:46 | Outpatient (AMB) | payer OTHER, SELFPAY ==
[2023-04-24 11:26] VITALS: BP 132/56; PULSE 81; TEMP 36.5; O2SAT 99; BMI 29.7
--- NOTE | 2023-04-24 11:26 | AM.OFFWIN_ITS ---
Intake Vital Signs 04/24/23 11:26 04/24/23 11:26 Height 6 ft 6 ft Weight 219 lb BMI 29.7 BP 132/56 L Blood Pressure Location Rt brachial Position Sitting Pulse 81 Pulse Source Pulse Oximeter Temp 97.7 F Temp Source Temporal Artery Scan Pulse Oximetry (%) 99 Oxygen Delivery Method Room Air Intake Visit Reasons: EP, Left shoulder/knee pain due to fall Patient Tobacco Use Status: Never used Tobacco Allergies Penicillins [PENICILLINS] Allergy (Intermediate, Verified 04/24/23 11:28) RASH/HIVES Sulfa (Sulfonamide Antibiotics) Allergy (Unknown, Verified 04/24/23 11:28) Unknown HPI HPI Comments History of Present Illness Details Patient is a 62-year-old male in today for a sick visit. Patient states that he had a mechanical fall work 3 hours prior to appointment where he landed on his left knee and then fell into a wall hitting his left shoulder and grazing his left face. He denies nausea, vomiting, headache, or dizziness. Denies changes in vision. States that he has pain to his left shoulder that gets worse with movement. He has point tenderness on his left knee inferior and medial to the patella. He has a superficial laceration inferior to the patella. The patient is able to bear weight and walk on both knees. Patient's head is normocephalic, no cuts or bruises. No deformities the scalp. Pupils are equal round reactive to light. Accommodation is present in both pupils. CN 2 through 12 is intact. Heart sounds have normal rate and rhythm, lung sounds are clear throughout bilaterally. Patient has limited range of motion in his left shoulder, and pain with abduction. Pain has pain with movement with left knee, but no limitations in regard to range of motion or strength. Pulses are +2 throughout. No bruising or lacerations or obvious deformity over the left shoulder. Patient has a 2 in superficial laceration inferior to the left patella. No obvious deformity of the left knee. Patient is able bear weight on the affected joint. Patient is likely to have sprain of left knee and shoulder. This injury is unlikely to pose a threat to his limb. Unlikely to be an arterial or venous occlusion. Unlikely to be an neurovascular compromise. The patient will be given [facility] Surgical History History of testicular surgery Hx of left knee surgery Family History Father No problems noted. Mother No problems noted. Social History Housing: House Alcohol intake: current Alcohol intake frequency: holidays/special occasions only Patient Tobacco Use Status: Never used Tobacco e-Cigarette/Vaping Use: Never Used Second Hand Smoke Exposure: No service: No Current occupational status: employed Current occupational exposures/hazards: No Cognitive needs: No Hearing needs: No Vision needs: Yes (glasses) Review of Systems Const Details: Constitutional : No Weight loss, No Fever, No Chills, No Fatigue, No Malaise Eyes: No Eye Pain, No Swelling, No Redness. Cardiovascular : No Chest Pain, No SOB, No Dyspnea on Exertion, No Orthopnea, No Edema, No Palpitations Respiratory : No Cough, No Sputum, No Wheezing Gastrointestinal : No Nausea, No Vomiting, No Diarrhea, No Constipation, No abdominal Pain, No Hematochezia, No Melena Musculoskeletal : Left shoulder and knee pain. Skin : Lacerations below the left knee. Superficial. Neuro : No Weakness, No Numbness, No Dizziness, No Headache Psych : No Anxiety/Panic, No Depression All other systems reviewed and are negative All systems reviewed & are unremarkable except as noted in HPI and below Physical Exam Vital Signs: Last Vital Signs Temp 97.7 F 04/24/23 11:26 Pulse 81 04/24/23 11:26 BP 132/56 L 04/24/23 11:26 Pulse Ox 99 04/24/23 11:26 Oxygen Delivery Method Room Air 04/24/23 11:26 BMI result Body Mass Index 29.7 Vital signs reviewed and are stable Appearance: Alert.? Oriented X3.? No acute distress.? Head: Normocephalic, atraumatic, no step-offs or deformities Eyes: Pupils equal, round and reactive to light.? ENT: Pharynx normal.? Neck: Normal inspection.? Neck supple.? CVS: Normal heart rate and rhythm.? Pulses normal.? Respiratory: No respiratory distress.? Breath sounds normal.? Abdomen: Soft and nontender.? Skin: 2 inch laceration inferior to the left petalla. No brusing. Extremities: No lower extremity edema. Limited range of motion to abduction of left shoulder. Point tenderness to left humeral head. No obvious deformities. Patient has limited range of motion and strength of left knee. Neuro: Oriented X 3.? No motor deficit.? No sensory deficit. CN 2-12 intact Assessment & Plan Assessment & Plan (1) Left shoulder pain: Code(s): M25.512 - Pain in left shoulder Qualifiers: Chronicity: acute Qualified Code(s): M25.512 - Pain in left shoulder Plan: Patient will be given immobilization device of the left shoulder. Patient will be given meloxicam to be taken as directed, and cyclobenzaprine to be taken at night before bedtime. Patient has been educated on the side effects of the medication. Patient has been educated that meloxicam should not be combined with other NSAIDs. Patient has been instructed to take the medication with something in his stomach. Patient has been educated on signs of worsening symptoms when to return to the emergency room or when to present to the walk-in clinic. (2) Left knee pain: Code(s): M25.562 - Pain in left knee Qualifiers: Chronicity: acute Qualified Code(s): M25.562 - Pain in left knee Plan: Patient will be given immobilization device of the left shoulder. Patient will be given meloxicam to be taken as directed, and cyclobenzaprine to be taken at night before bedtime. Patient has been educated on the side effects of the medication. Patient has been educated that meloxicam should not be combined with other NSAIDs. Patient has been instructed to take the medication with something in his stomach. Patient has been educated on signs of worsening symptoms when to return to the emergency room or when to present to the walk-in clinic. Orders: Orders XR knee LT 4V Today M25.562 - Pain in left knee XR shoulder LT min 2V Today M25.512 - Pain in left shoulder Medications: New cyclobenzaprine 5 mg PO BEDTIME PRN 10 tabs 0RF muscle spasm meloxicam 15 mg PO DAILY 10 tabs 0RF Coding Level of Care Code Est Pt Level 4 (57191) Diagnoses Acute pain of left shoulder M25.512 Chronicity: acute Acute pain of left knee M25.562 Chronicity: acute Time Spent (min) 30
--- NOTE | 2023-04-24 11:26 | MHC.OFFWIV ---
Intake Vital Signs 04/24/23 11:26 04/24/23 11:26 Height 6 ft 6 ft Weight 219 lb BMI 29.7 BP 132/56 L Blood Pressure Location Rt brachial Position Sitting Pulse 81 Pulse Source Pulse Oximeter Temp 97.7 F Temp Source Temporal Artery Scan Pulse Oximetry (%) 99 Oxygen Delivery Method Room Air Intake Visit Reasons: EP, Left shoulder/knee pain due to fall Intake Note: Pt is here c/o left shoulder, right hand and left knee pain due to a fall he had this morning around 1015am. Patient Tobacco Use Status: Never used Tobacco Allergies Penicillins [PENICILLINS] Allergy (Intermediate, Verified 05/18/23 16:44) RASH/HIVES Sulfa (Sulfonamide Antibiotics) Allergy (Unknown, Verified 05/18/23 16:44) Unknown Do you need a note to return to daycare/school/sports/work: Yes PFSH Surgical History History of testicular surgery Hx of left knee surgery Family History Father No problems noted. Mother No problems noted. Social History Housing: House Alcohol intake: current Alcohol intake frequency: holidays/special occasions only Patient Tobacco Use Status: Never used Tobacco e-Cigarette/Vaping Use: Never Used Second Hand Smoke Exposure: No service: No Current occupational status: employed Current occupational exposures/hazards: No Cognitive needs: No Hearing needs: No Vision needs: Yes (glasses) Physical Exam Vital Signs: Last Vital Signs Temp 97.7 F 04/24/23 11:26 Pulse 81 04/24/23 11:26 BP 132/56 L 04/24/23 11:26 Pulse Ox 99 04/24/23 11:26 Oxygen Delivery Method Room Air 04/24/23 11:26 BMI result Body Mass Index 29.7 Assessment & Plan Assessment & Plan Orders: Orders XR knee LT 4V 04/24/23 M25.562 - Pain in left knee XR shoulder LT min 2V 04/24/23 M25.512 - Pain in left shoulder Medications: New cyclobenzaprine 5 mg PO BEDTIME PRN 10 tabs 0RF muscle spasm meloxicam 15 mg PO DAILY 10 tabs 0RF Coding
== END 2023-04-24 12:29 | disposition home or self-care (01) ==
PROVIDERS: PCP Family Medicine; Visit Provider Nurse Practitioner Primary Care
DX: M25.512 Pain in left shoulder (principal); M25.562 Pain in left knee
CPT/HCPCS: 99214

== ENCOUNTER 2023-04-24 11:53 | Outpatient (REF) | payer OTHER, SELFPAY ==
--- NOTE | ~2023-04-24 | XR_ITS ---
EXAMINATION: XR SHOULDER, LEFT CLINICAL INFORMATION: Pain in left shoulder COMPARISON: None available. TECHNIQUE: AP external rotation, Grashey, scapular Y, views of the left shoulder. FINDINGS: There is no evidence of fracture or subluxation. The glenohumeral articulation is preserved. The left proximal humeral shaft appears mottled with areas of lucency. XR/XR shoulder LT min 2V IMPRESSION: 1. Mottling of the left proximal humerus raising concern of marrow infiltrative processes such as myeloma. Clinical follow-up and management are recommended. 2. No acute fracture, subluxation or significant arthropathy in the left shoulder.
--- NOTE | ~2023-04-24 | XR_ITS ---
EXAMINATION: XR KNEE, LEFT CLINICAL INFORMATION: Knee pain COMPARISON: None available. TECHNIQUE: Four views of the left knee. FINDINGS: No fracture or joint effusion. Alignment is anatomic. Joint spaces are maintained. No abnormal soft tissue calcification. XR/XR knee LT 4V IMPRESSION: Unremarkable plain radiographs of the left knee.
== END 2023-04-24 11:54 | disposition home or self-care (01) ==
LOC: HO.HMGCX 11:53
PROVIDERS: PCP Family Medicine; Visit Provider Nurse Practitioner Primary Care
DX: M25.512 Pain in left shoulder (principal); M25.562 Pain in left knee
CPT/HCPCS: 73030; 73564

== ENCOUNTER 2023-05-18 16:38 | Outpatient (AMB) | payer OTHER, SELFPAY ==
--- NOTE | 2023-05-18 16:40 | MHC.PC.OV ---
Vital Signs 05/18/23 16:42 Height 6 ft Weight 213 lb 4 oz BMI 28.9 BP 130/58 L Blood Pressure Location Lt brachial Position Sitting Pulse 74 Pulse Source Pulse Oximeter Pulse Oximetry (%) 100 Oxygen Delivery Method Room Air Intake Visit Reasons: f/u anemia, kidney functions, thyroid levels Intake Note: Patient is here to follow up on anemia, kidney functions and thyroid levles. Patient also had a fall 3 weeks ago, injuring his left shoulder. His A1C is 7.4. Allergies Penicillins [PENICILLINS] Allergy (Intermediate, Verified 05/18/23 16:44) RASH/HIVES Sulfa (Sulfonamide Antibiotics) Allergy (Unknown, Verified 05/18/23 16:44) Unknown Tobacco use date assessed: 05/18/23 Fall risk assessment: 1 Fall in past year Last assessed Fall Risk: 05/18/23 HPI f/u anemia, kidney functions, thyroid levels HPI Details 62 y/o male presents to f/u anemia, kidney functions and thyroid levels but no recent labs to review. A1c today 05/18/23 7.4%. He is on Farxiga 5mg, insulin glargine 34 units, metformin 500mg b.i.d. and Mounjaro. He notes he does get low blood sugars sometimes in the 60s-70s. Pt reports he had a fall 3 weeks ago and injured his L shoulder. [facility] Surgical History History of testicular surgery Hx of left knee surgery Family History Father No problems noted. Mother No problems noted. Social History Housing: House Alcohol intake: current Alcohol intake frequency: holidays/special occasions only Patient Tobacco Use Status: Never used Tobacco e-Cigarette/Vaping Use: Never Used Second Hand Smoke Exposure: No service: No Current occupational status: employed Current occupational exposures/hazards: No Cognitive needs: No Hearing needs: No Vision needs: Yes (glasses) Questionnaire Thrive Questionnaire Date Thrive assessed: 07/05/22 NATI-7 AMB Questionnaire NATI-7 Date NATI - 7 assessed: 07/05/22 Source: Developed by Ann Galdamez B.W. Raj, Yao Pacheco and colleagues, with an educational brigida from [employer]. Physical exam (Primary Care) Vital Signs: Last Vital Signs Pulse 74 05/18/23 16:42 BP 130/58 L 05/18/23 16:42 Pulse Ox 100 05/18/23 16:42 Oxygen Delivery Method Room Air 05/18/23 16:42 BMI result Body Mass Index 28.9 Tobacco/Smoking Status: Tobacco use Status Tobacco use date assessed 01/10/23 05/18/23 16:43 Patient Tobacco Use Status Never used Tobacco 05/18/23 16:43 e-Cigarette/Vaping Use Never Used 05/18/23 16:43 Thrive Assessment: Date of Thrive Assessment Date Thrive assessed 07/05/22 05/18/23 16:43 Assessment and Plan Assessment & Plan (1) Type 2 diabetes mellitus with hyperglycemia: Code(s): E11.65 - Type 2 diabetes mellitus with hyperglycemia Plan: A1c?7.4% which?is?suboptimal?control. Goal?is?less?than?7.0%. He?has?been?having?some?low?blood?sugars?as?well. Sometimes?adjust?his?Basaglar?for?this. I?asked?him?to?try?taking?his?evening?metformin?dose?at?around?5pm?rather?than?8?or?9pm May?be?able?to?adjust?his?Basaglar?or?easily Continue?dexcom?monitoring Has?appointment?with??Bam?in?August (2) Left shoulder pain: Code(s): M25.512 - Pain in left shoulder Plan: Pain?at?biceps?tendon?and?lateral?had?of?triceps No?deformity?and?still?has?strength?though?range?of?motion?is?decreased?due?to?discomfort. Likely?strains?and?should?improve Can?use?ice?and?heat?and?gentle?stretching/range?of?motion?exercises?which?were?demonstrated. If?not?improving?will?refer?for?physical?therapy (3) Left shoulder pain: Code(s): M25.512 - Pain in left shoulder Coding Level of Care Code Est Pt Level 4 (68100) Diagnoses Type 2 diabetes mellitus with hyperglycemia E11.65 Left shoulder pain M25.512
[2023-05-18 16:42] VITALS: BP 130/58; PULSE 74; O2SAT 100; BMI 28.9
== END 2023-05-18 17:10 | disposition home or self-care (01) ==
PROVIDERS: PCP Family Medicine; Visit Provider Family Medicine
DX: E11.65 Type 2 diabetes mellitus with hyperglycemia (principal); M25.512 Pain in left shoulder
CPT/HCPCS: 99214

== ENCOUNTER 2023-06-12 08:34 | Outpatient (AMB) | payer OTHER, SELFPAY ==
--- NOTE | 2023-06-12 09:08 | A.OFFVIS_ITS ---
Intake Intake Visit Reasons: DM with [employer] Package Winder Required: No Accompanied by: Self / Same As Patient Allergies Penicillins [PENICILLINS] Allergy (Intermediate, Verified 05/18/23 16:44) RASH/HIVES Sulfa (Sulfonamide Antibiotics) Allergy (Unknown, Verified 05/18/23 16:44) Unknown HPI Comprehensive Diabetes Asmnt Most Recent Diabetes Results: Hemoglobin A1c 10.6 % 03/03/20 Microalb/Creat Ratio 15.6 ug/mg cr (<30) 02/13/23 Cholesterol 144 mg/dL 12/11/22 HDL Cholesterol 43 mg/dL 12/11/22 Triglycerides 93 mg/dL 12/11/22 Creatinine 1.23 mg/dL (0.5-1.4) 02/13/23 Blood Urea Nitrogen 25 mg/dL (9-16) H 02/13/23 Sodium 138 mmol/L (135-145) 02/13/23 Potassium 4.5 mmol/L (3.3-5.1) 02/13/23 Chloride 105 mmol/L (96-108) 02/13/23 Carbon Dioxide 25 mmol/L (22-29) 02/13/23 Calcium 9.7 mg/dL (8.4-10.2) 02/13/23 AST 17 U/L (5-37) 12/28/22 ALT 23 U/L (0-40) 12/28/22 Total Protein 7.5 g/dL (6.5-8.0) 12/28/22 Albumin 4.1 g/dL (3.5-5.0) 12/28/22 PFSH Surgical History History of testicular surgery Hx of left knee surgery Family History Father No problems noted. Mother No problems noted. Social History Housing: House Alcohol intake: current Alcohol intake frequency: holidays/special occasions only Patient Tobacco Use Status: Never used Tobacco e-Cigarette/Vaping Use: Never Used Second Hand Smoke Exposure: No service: No Current occupational status: employed Current occupational exposures/hazards: No Cognitive needs: No Hearing needs: No Vision needs: Yes (glasses) Assessment & Plan Assessment & Plan (1) Type 2 diabetes mellitus with hyperglycemia: Code(s): E11.65 - Type 2 diabetes mellitus with hyperglycemia Plan: Learning objectives: The patient was provided with verbal and written education on the following topics as outlined below. Assess patient education level/literacy/barriers Patient questions/concerns, patient does not currently have working sensor. Prescription sent to Dr. Kuhn to resend prescription for Dexcom G7 sensor Patient did not bring meter to today's Patient is currently overdue for A1c last A1c in December 2022 6.7% Patient does not have follow-up appointments with Dr. Kuhn until August 2023, request for A1c order sent to Dr. Kuhn The patient met all learning objectives and was able to verbalize understanding and provide teach back of education topics discussed . The patient was provided with the opportunity to ask questions and all questions were answered. Topics covered in ?s session included: Medications (If applicable) * Name of medication? * Dosing/administration instructions? * Mechanism of action? * Potential side effects? * Potential adverse reaction and appropriate treatment? * Review onset, peak, duration Assess for concerns re: insurance coverage, cost, barriers to compliance Insulin/Injectables (If applicable) * Storage/care of insulin?? * Injection sites? * Site rotation? * Onset, peak, duration * Drawing up insulin? * Injecting insulin/other injectables? * Sharps disposal Continuous blood glucose monitoring (if applicable) Hypoglycemia and Hyperglycemia * Signs and symptoms? * Causes?? * Treatment? * Preventing hypoglycemia? * When to seek medical attention * Blood glucose targets and how you feel when your blood glucose is in and out of your target ranges. * Monitoring and knowing your A1C. * What can make blood glucose go up and down and preventing high and low blood glucose. * Review of blood sugar targets in expected goal range and outside of expected goal range. * Problem solving and preventing hyper/hypoglycemia. * Sick day management of diabetes. * Using blood sugar results in decision making process in managing diabetes. ?Patient was receptive to information provided and participated in the discussion. Asked?appropriate questions and demonstrated good understanding of the topics discussed.? ? Educational Materials: The patient was provided with the following written educational materials: Target Goal handout Smart Goal Assessment:? Patient will keep meals to 45-60 g of carbohydrate Pt met goal more than 50% New Smart Goal: Patient will continue with working on increasing percentage of time to keep meals between 45-60 g Patient Response to instructions: Comprehension of Instructions: Good Readiness to make changes:? Action How confident they feel about making changes: Fair Coding Level of Care Code Est Pt Level 1 (84400) Diagnoses Type 2 diabetes mellitus with hyperglycemia E11.65
== END 2023-06-12 09:09 | disposition home or self-care (01) ==
PROVIDERS: PCP Family Medicine; Visit Provider Registered Nurse Diabetes Educator
DX: E11.65 Type 2 diabetes mellitus with hyperglycemia (principal)

== ENCOUNTER → 2023-06-12 08:34 | Outpatient (BNVA) | payer OTHER, SELFPAY | PROVIDERS: PCP Family Medicine; Visit Provider Registered Nurse Diabetes Educator | DX: E11.65 Type 2 diabetes mellitus with hyperglycemia (principal) | CPT/HCPCS: 99211 ==

== ENCOUNTER 2023-07-13 08:19 | Outpatient (REF) | payer OTHER, SELFPAY | END 2023-07-13 08:20 | disposition home or self-care (01) | LOC: HO.SH 08:19 | PROVIDERS: Visit Provider Family Medicine | DX: Z01.118 Encounter for examination of ears and hearing with other abnormal findings (principal); H91.90 Unspecified hearing loss, unspecified ear | CPT/HCPCS: 92557; 92567 ==

== ENCOUNTER 2023-07-23 13:43 | Outpatient (REF) | payer OTHER, SELFPAY ==
[2023-07-23 13:57] LABS: MANUAL DIFF FLAG NO
[2023-07-23 14:08] LABS: Basophils Percent Auto 0.3 % (0-2); Eosinophils Absolute Auto 0.1 X10*3/uL (0.0-0.4); Hematocrit 30.5 % (42.0-52.0); Hemoglobin 10.4 g/dl (14.0-18.0); Imm Gran Abs Auto 0.01 X10*3/uL (0.00-0.03); Imm Gran Pct Auto 0.1 % (0.0-0.4); Lymphocytes Percent Auto 28.6 % (20-40); Mean Corpuscular HGB Conc 34.1 g/dl (31.0-36.0); Mean Corpuscular Hemoglobin 28.7 pg (27.0-33.0); Mean Corpuscular Volume 84.3 fL (80.0-98.0); Monocytes Absolute Auto 0.7 X10*3/uL (0.1-1.2); Monocytes Percent Auto 9.4 % (2-11); Neutrophils Absolute Auto 4.2 x10*3/uL (2.0-8.3); Neutrophils Percent Auto 60.6 % (45-73); Platelet Count 238 X10*3/uL (160-400); Red Blood Count 3.62 X10*6/uL (4.60-5.80); Red Cell Distribution Width 13.6 % (11.0-16.0)
[2023-07-23 16:18] LABS: Microalbum/Creatinine Ratio Ur 20.2 ug/mg cr (<30)
[2023-07-23 16:33] LABS: Prostate Specific Antigen Scr 0.36 ng/mL (<0.05-4.0)
[2023-07-23 16:36] LABS: Alanine Aminotransferase 16 U/L (0-40); Albumin Level 3.9 g/dL (3.5-5.0); Alkaline Phosphatase 77 U/L (39-117); Anion Gap 10 (12-20); Aspartate Amino Transferase 14 U/L (5-37); Bilirubin Total 0.3 mg/dL (0.0-1.0); Blood Urea Nitrogen 25 mg/dL (9-16); Calcium 9.3 mg/dL (8.4-10.2); Carbon Dioxide 25 mmol/L (22-29); Chloride 107 mmol/L (96-108); Cholesterol 121 mg/dL (<200); Estimated Glomerular Filt Rate > 60; Glucose Fasting 125 mg/dL (60-99); Glucose Random 127 mg/dL (60-115); HDL Cholesterol 45 mg/dL (>40); LDL Cholesterol Calculated 56 mg/dL (<100); Potassium 4.2 mmol/L (3.3-5.1); Sodium 138 mmol/L (135-145); Total Protein 6.8 g/dL (6.5-8.0); Triglycerides 100 mg/dL (<150)
[2023-07-23 16:43] LABS: Free T4 (Free Thyroxine) 1.37 ng/dL (0.71-1.85); Thyroid Stimulating Hormone < 0.01 uIU/mL (0.32-4.0)
[2023-07-24 07:29] LABS: Triiodothyronine T3 Total 106 ng/dL (76-181)
== END 2023-07-23 13:44 | disposition home or self-care (01) ==
LOC: HO.LAB 13:43
PROVIDERS: PCP Family Medicine; Visit Provider Family Medicine
DX: Z00.00 Encounter for general adult medical examination without abnormal findings (principal); Z12.5 Encounter for screening for malignant neoplasm of prostate; I12.9 Hypertensive chronic kidney disease with stage 1 through stage 4 chronic kidney disease, or unspecified chronic kidney disease; N18.9 Chronic kidney disease, unspecified; E03.9 Hypothyroidism, unspecified; D64.9 Anemia, unspecified; R79.89 Other specified abnormal findings of blood chemistry
CPT/HCPCS: 36415; 80048; 80053; 80061; 82043; 82570; 84153; 84439; 84443; 84480; 85025

== ENCOUNTER 2023-07-23 16:22 | Outpatient (AMB) | payer OTHER, SELFPAY ==
[2023-07-23 16:27] VITALS: BP 120/62; PULSE 68; O2SAT 99; BMI 29.3
--- NOTE | 2023-07-23 16:27 | A.OFFPC_ITS ---
Vital Signs 07/23/23 16:27 Height 6 ft Weight 216 lb BMI 29.3 BP 120/62 Blood Pressure Location Lt brachial Position Sitting Pulse 68 Pulse Source Pulse Oximeter Pulse Oximetry (%) 99 Oxygen Delivery Method Room Air Intake Visit Reasons: 2 mos Intake Note: Patient is here for 2 month follow up. A1c is & 7.1 today. Allergies Penicillins [PENICILLINS] Allergy (Intermediate, Verified 07/23/23 16:30) RASH/HIVES Sulfa (Sulfonamide Antibiotics) Allergy (Unknown, Verified 07/23/23 16:30) Unknown Tobacco use date assessed: 07/23/23 Fall risk assessment: 1 Fall in past year Last assessed Fall Risk: 07/23/23 HPI 2 mos HPI Details 62 y/o male presents to f/u CRF, mild an emia, and hypothyroidism. Also follow-up diabetes. Last A1c 05/18/23 7.4%. He notes dexcom had told him A1c today 7.1%. Labs were drawn 05/22/24. Reviewed labs with pt. Mild anemia. Elevated fasting glucose of 125. Creatinine level 1.12. Thyroid level still pending. [facility] Surgical History History of testicular surgery Hx of left knee surgery Family History Father No problems noted. Mother No problems noted. Social History Housing: House Alcohol intake: current Alcohol intake frequency: holidays/special occasions only Patient Tobacco Use Status: Never used Tobacco e-Cigarette/Vaping Use: Never Used Second Hand Smoke Exposure: No service: No Current occupational status: employed Current occupational exposures/hazards: No Cognitive needs: No Hearing needs: No Vision needs: Yes (glasses) Questionnaire PHQ-9 Over the last 2 weeks, how often have you been bothered by any of the following problems? 1. Little interest or pleasure in doing things: not at all 2. Feeling down, depressed, or hopeless: not at all 3. Trouble falling or staying asleep, or sleeping too much: not at all 4. Feeling tired or having little energy: not at all 5. Poor appetite or overeating: not at all 6. Feeling bad about yourself - or that you are a failure or have let yourself or your family down: not at all 7. Trouble concentrating on things, such as reading the newspaper or watching television: not at all 8. Moving or speaking so slowly that other people could have noticed. Or the opposite - being so fidgety or restless that you have been moving around a lot more than usual: not at all 9. Thoughts that you would be better off or of hurting yourself in some way: not at all Total score: 0 Source: Developed by Drs. Malick Sanders, Ann Anthony, Yao Pacheco and colleagues, with an educational brigida from [employer]. Thrive Questionnaire Date Thrive assessed: 07/23/23 I am a: Patient What is your living situation today?: I have a steady place to live Within the past 12 months, did the food you bought not last and you didn't have the money to get more?: Never true Within the past 12 months, did you worry whether your food would run out before you got money to buy more?: Never true Do you have trouble paying for medicines?: No Do you have trouble getting transportation to medical appointments?: No Do you have trouble paying your heating and electricity bill?: No Do you have trouble taking care of your child, family member or friend?: No Do you have trouble with day-to-day activities such as bathing, preparing meals, shopping, managing finances, etc.?: No Are you currently unemployed and looking for a job?: No Are you interested in more education?: No THRIVE Score: 0 AUDIT C Alcohol Use Questionnaire (AUDIT-C) 1. How often do you have a drink containing alcohol?: Monthly or less 2. How many drinks containing alcohol do you have on a typical day when you are drinking?: 1 or 2 3. How often do you have six or more drinks on one occasion?: Never Total Score: 1 NATI-7 AMB Questionnaire NATI-7 Date NATI - 7 assessed: 07/23/23 Feeling nervous, anxious, or on edge: 0 = Not at all Not being able to stop or control worryin = Not at all Worrying too much about different things: 0 = Not at all Trouble relaxin = Not at all Being so restless that it is hard to sit still: 0 = Not at all Becoming easily annoyed or irritable: 0 = Not at all Feeling afraid as if something awful might happen: 0 = Not at all Total NATI-7 score (0-4 normal; 5-9 mild; 10-14 moderate; 15-21 severe): 0 Source: Developed by Drs. Malick Sanders, Ann Anthony, Yao Pacheco and colleagues, with an educational brigida from [employer]. Review of Systems Const Denies chills, Denies fatigue, Denies fever(s), Denies headache(s) and Denies weakness ENT Denies dizziness and Denies headache(s) Card Denies chest pain, Denies lightheadedness, Denies dyspnea and Denies other (Palpitations) Resp Denies cough, Denies dyspnea, Denies wheezing and Denies other ( shortness of breath) Musc Denies numbness and Denies tingling Neuro Denies dizziness, Denies headache(s), Denies numbness, Denies tingling, Denies paresthesias and Denies weakness Psych Denies anxiety and Denies depression Endo Denies fatigue Aller/Immun Denies wheezing Physical exam (Primary Care) Vital Signs: Last Vital Signs Pulse 68 07/23/23 16:27 BP 120/62 07/23/23 16:27 Pulse Ox 99 07/23/23 16:27 Oxygen Delivery Method Room Air 07/23/23 16:27 BMI result Body Mass Index 29.3 Tobacco/Smoking Status: Tobacco use Status Tobacco use date assessed 07/23/23 07/23/23 16:33 Patient Tobacco Use Status Never used Tobacco 07/23/23 16:33 e-Cigarette/Vaping Use Never Used 07/23/23 16:33 PHQ-9: PHQ-9 Score PHQ-9: Total score 0 07/23/23 16:46 Thrive Assessment: Date of Thrive Assessment Date Thrive assessed 07/23/23 07/23/23 16:40 Const General: no acute distress and well developed Nutritional Appearance: well nourished Orientation/consciousness: patient oriented x3 HENMT Head: Yes normocephalic and Yes atraumatic Eyes General: appearance normal, both eyes and all related structures Pupils: Equal, round and reactive pupils present EOM: EOMs intact bilaterally Resp Effort & Inspection: normal respiratory effort Auscultation: clear to auscultation bilaterally Cardio Rate: regular rate Rhythm: regular rhythm Heart sounds: S1 normal heart sound present, S2 normal heart sound present, no gallops, no murmurs and no rubs Neuro General: patient oriented x3 and gait normal Cranial nerves: Yes Equal, round and reactive pupils present Psych Affect: normal affect Assessment and Plan Assessment & Plan (1) Hypertension, essential: Code(s): I10 - Essential (primary) hypertension Plan: Blood?pressure?is?controlled Goal?is?less?than?140/90 Continue?current?medication (2) Chronic kidney disease: Code(s): N18.9 - Chronic kidney disease, unspecified Plan: Renal?function?improved?and?stable Will?continue?to?control?blood?pressure,?blood?sugar?and?lipids Follow-up?with?renal?as?recommended (3) Low TSH level: Code(s): R79.89 - Other specified abnormal findings of blood chemistry Plan: Patient?had?labs?drawn?today?but?thyroid?hormone?levels?are?pending Will?call?if?any?action?is?required (4) Anemia: Code(s): D64.9 - Anemia, unspecified Plan: Mild?chronic/stable?anemia,?likely?secondary?to?some?chronic?renal?disease Stable (5) Type 2 diabetes mellitus with hyperglycemia: Code(s): E11.65 - Type 2 diabetes mellitus with hyperglycemia Plan: His?Dexcom?A1c?shows?improvement?to?7.1%.??Fair?control. 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
== END 2023-07-23 16:58 | disposition home or self-care (01) ==
PROVIDERS: PCP Family Medicine; Visit Provider Family Medicine
DX: I12.9 Hypertensive chronic kidney disease with stage 1 through stage 4 chronic kidney disease, or unspecified chronic kidney disease (principal); E11.65 Type 2 diabetes mellitus with hyperglycemia; N18.9 Chronic kidney disease, unspecified; R79.89 Other specified abnormal findings of blood chemistry; D64.9 Anemia, unspecified
CPT/HCPCS: 99214

== ENCOUNTER → 2023-08-28 13:40 | Outpatient (BNVA) | payer OTHER, SELFPAY | PROVIDERS: PCP Family Medicine; Visit Provider Internal Medicine Endocrinology, Diabetes & Metabolism ==

== ENCOUNTER 2023-09-27 13:14 | Outpatient (AMB) | payer OTHER, SELFPAY ==
[2023-09-27 13:25] VITALS: BP 132/80; BMI 29.1
--- NOTE | 2023-09-27 13:25 | A.OFFPC_ITS ---
Vital Signs 09/27/23 13:25 Height 6 ft Weight 214 lb 4 oz BMI 29.1 BP 132/80 Blood Pressure Location Rt brachial Position Sitting Intake Visit Reasons: Foot surgery october 16 Intake Note: Patient is here for preop surgery on October 16, he is getting his hammertoe removed. Patient needs refills on his needles today. Patient states he had not received lower dose of Levothyroxine from 300, it was to be lowered. Allergies Penicillins [PENICILLINS] Allergy (Intermediate, Verified 09/27/23 13:26) RASH/HIVES Sulfa (Sulfonamide Antibiotics) Allergy (Unknown, Verified 09/27/23 13:26) Unknown Tobacco use date assessed: 09/27/23 Fall risk assessment: 1 Fall in past year Last assessed Fall Risk: 09/27/23 Dental Screening Dental Screen Date: 09/27/23 Did you have a dental visit in the last 12 months?: Yes Did you have a dental problem in the last 6 months where you did not have access to dental care?: No Was dental information given to patient?: Patient has dentist HPI Foot surgery october 16 HPI Details 63-year-old male with history of diabete s, hypertension, chronic kidney disease, osteoarthritis and mild anemia presents for preoperative clearance prior to L Hammertoe Procedure: ?Left?hammertoe Date: October 17, 2023 Surgeon: Dr Teena Bergman Anesthesia: General Cardiac?Hx: None Pulmonary?Hx: None Prior?Surgical?Complications: None Prior?Anesthesia?Complications: None Coag?Issues: None Functional?Alpha: Able to walk two city blocks, two flight of stairs with a bag of groceries. Walks for exercise. [facility] Medical History (Updated 09/27/23 @ 13:34 by Frandy Banerjee) Hypertension Diabetes Hammer toe Surgical History History of testicular surgery Hx of left knee surgery Family History Father No problems noted. Mother No problems noted. Social History Housing: House Alcohol intake: current Alcohol intake frequency: holidays/special occasions only Patient Tobacco Use Status: Never used Tobacco e-Cigarette/Vaping Use: Never Used Second Hand Smoke Exposure: No service: No Current occupational status: employed Current occupational exposures/hazards: No Cognitive needs: No Hearing needs: No Vision needs: Yes (glasses) Questionnaire Thrive Questionnaire Date Thrive assessed: 07/23/23 NATI-7 AMB Questionnaire NATI-7 Date NATI - 7 assessed: 07/23/23 Source: Developed by Drs. Malick Sanders, Ann Anthony, Yao Pacheco and colleagues, with an educational brigida from [employer]. Review of Systems Const Denies chills, Denies fatigue, Denies fever(s), Denies headache(s) and Denies weakness ENT Denies dizziness and Denies headache(s) Card Denies chest pain, Denies lightheadedness, Denies dyspnea and Denies other (Palpitations) Resp Denies cough, Denies dyspnea, Denies wheezing and Denies other ( shortness of breath) Musc Denies numbness and Denies tingling Neuro Denies dizziness, Denies headache(s), Denies numbness, Denies tingling, Denies paresthesias and Denies weakness Psych Denies anxiety and Denies depression Endo Denies fatigue Aller/Immun Denies wheezing Physical exam (Primary Care) Vital Signs: Last Vital Signs BP 132/80 09/27/23 13:25 BMI result Body Mass Index 29.1 Tobacco/Smoking Status: Tobacco use Status Tobacco use date assessed 09/27/23 09/27/23 13:28 Patient Tobacco Use Status Never used Tobacco 09/27/23 13:28 e-Cigarette/Vaping Use Never Used 09/27/23 13:28 Thrive Assessment: Date of Thrive Assessment Date Thrive assessed 07/23/23 09/27/23 13:28 Const General: no acute distress and well developed Nutritional Appearance: well nourished Orientation/consciousness: patient oriented x3 HENMT Head: Yes normocephalic and Yes atraumatic Eyes General: appearance normal, both eyes and all related structures Pupils: Equal, round and reactive pupils present EOM: EOMs intact bilaterally Resp Effort & Inspection: normal respiratory effort Auscultation: clear to auscultation bilaterally Cardio Rate: regular rate Rhythm: regular rhythm Heart sounds: S1 normal heart sound present, S2 normal heart sound present, no gallops, no murmurs and no rubs Neuro General: patient oriented x3 and gait normal Cranial nerves: Yes Equal, round and reactive pupils present Psych Affect: normal affect Assessment and Plan Assessment & Plan (1) Pre-operative clearance: Code(s): Z01.818 - Encounter for other preprocedural examination Plan: 63-year-old male with history of diabetes, hypertension, chronic kidney disease, osteoarthritis and mild anemia presents for preoperative clearance prior to L Hammertoe surgery. No?prior?cardiac?disease.??Cardiac?exam?is?normal EKG:??Normal?sinus?rhythm,?normal?axis,?normal?intervals,?no?ST-T-wave?changes,? no?ischemia/infarctions No?pulmonary?disease?and?pulmonary?exam?is?normal. No?history?of?surgical?or?anesthesia?complications. No?coagulopathies Good?functional?reserve A?low?intermediate?risk?patient?for?low?intermediate?risk?procedure ?no?contraindications?to?proceeding?with?proposed?procedure (2) Hypertension, essential: Code(s): I10 - Essential (primary) hypertension Plan: Blood?pressure?is?controlled.??Goal?is?less?than?140/90 Continue?current?medication Orders: Orders AMB EKG-In Office Today Z01.818 - Encounter for other preprocedural examination Complete Blood Count Auto Diff Today Z00.00 - Encounter for general adult medical examination without abnormal findings, Z01.818 - Encounter for other preprocedural examination Basic Metabolic Panel Today Z00.00 - Encounter for general adult medical examination without abnormal findings, Z01.818 - Encounter for other preprocedural examination Medications: Changed From levothyroxine 300 mcg PO DAILY 90 days 90 tabs 6RF To levothyroxine 250 mcg (2 x 125 mcg) PO DAILY 90 days 180 tabs 6RF Refilled pen needle, diabetic (BD Bhavani 2nd Gen Pen Needle) Once Daily As directed, 90 days 100 ea 3RF E11.65 - Type 2 diabetes mellitus with hyperglycemia Coding Level of Care Code Est Pt Level 3 (91552) Diagnoses Pre-operative clearance Z01.818 Hypertension, essential I10
== END 2023-09-27 14:11 | disposition home or self-care (01) ==
PROVIDERS: PCP Family Medicine; Visit Provider Family Medicine
DX: Z01.818 Encounter for other preprocedural examination (principal); I10 Essential (primary) hypertension
CPT/HCPCS: 99213

== ENCOUNTER 2023-10-01 14:34 | Outpatient (REF) | payer OTHER, SELFPAY ==
[2023-10-01 16:07] LABS: MANUAL DIFF FLAG NO
[2023-10-01 16:20] LABS: Basophils Percent Auto 0.4 % (0-2); Eosinophils Absolute Auto 0.1 X10*3/uL (0.0-0.4); Eosinophils Percent Auto 1.6 % (0-4); Hematocrit 30.4 % (42.0-52.0); Hemoglobin 10.3 g/dl (14.0-18.0); Imm Gran Abs Auto 0.01 X10*3/uL (0.00-0.03); Imm Gran Pct Auto 0.1 % (0.0-0.4); Lymphocytes Absolute Auto 1.8 X10*3/uL (1.2-4.9); Lymphocytes Percent Auto 26.7 % (20-40); Mean Corpuscular HGB Conc 33.9 g/dl (31.0-36.0); Mean Corpuscular Hemoglobin 28.6 pg (27.0-33.0); Mean Corpuscular Volume 84.4 fL (80.0-98.0); Mean Platelet Volume 9.7 fL (9.4-12.4); Monocytes Absolute Auto 0.7 X10*3/uL (0.1-1.2); Monocytes Percent Auto 9.7 % (2-11); Neutrophils Absolute Auto 4.1 x10*3/uL (2.0-8.3); Neutrophils Percent Auto 61.5 % (45-73); Platelet Count 253 X10*3/uL (160-400); Red Cell Distribution Width 13.4 % (11.0-16.0); White Blood Count 6.7 X10*3/uL (4.8-10.8)
[2023-10-01 16:39] LABS: Anion Gap 11 (12-20); Blood Urea Nitrogen 39 mg/dL (9-16); Calcium 9.2 mg/dL (8.4-10.2); Carbon Dioxide 25 mmol/L (22-29); Chloride 107 mmol/L (96-108); Estimated Glomerular Filt Rate 50; Glucose Random 168 mg/dL (60-115); Potassium 3.9 mmol/L (3.3-5.1); Sodium 139 mmol/L (135-145)
[2023-10-01 17:00] LABS: Thyroid Stimulating Hormone < 0.01 uIU/mL (0.32-4.0)
[2023-10-02 10:53] LABS: Triiodothyronine T3 Total 83 ng/dL (76-181)
== END 2023-10-01 14:35 | disposition home or self-care (01) ==
LOC: HO.HMGCLDS 14:34
PROVIDERS: PCP Family Medicine; Visit Provider Family Medicine
DX: Z01.818 Encounter for other preprocedural examination (principal); E03.9 Hypothyroidism, unspecified
CPT/HCPCS: 36415; 80048; 84439; 84443; 84480; 85025

== ENCOUNTER 2023-10-11 08:23 | Outpatient (AMB) | payer OTHER, SELFPAY ==
--- NOTE | 2023-10-11 08:48 | A.OFFVIS_ITS ---
Intake Intake Visit Reasons: DM with Jenna/LVM Allergies Penicillins [PENICILLINS] Allergy (Intermediate, Verified 09/27/23 13:26) RASH/HIVES Sulfa (Sulfonamide Antibiotics) Allergy (Unknown, Verified 09/27/23 13:26) Unknown HPI Comprehensive Diabetes Asmnt Most Recent Diabetes Results: Hemoglobin A1c 10.6 % 03/03/20 Microalb/Creat Ratio 20.2 ug/mg cr (<30) 07/23/23 Cholesterol 121 mg/dL (<200) 07/23/23 HDL Cholesterol 45 mg/dL (>40) 07/23/23 Triglycerides 100 mg/dL (<150) 07/23/23 Creatinine 1.41 mg/dL (0.5-1.4) H 10/01/23 Blood Urea Nitrogen 39 mg/dL (9-16) H 10/01/23 Sodium 139 mmol/L (135-145) 10/01/23 Potassium 3.9 mmol/L (3.3-5.1) 10/01/23 Chloride 107 mmol/L (96-108) 10/01/23 Carbon Dioxide 25 mmol/L (22-29) 10/01/23 Calcium 9.2 mg/dL (8.4-10.2) 10/01/23 AST 14 U/L (5-37) 07/23/23 ALT 16 U/L (0-40) 07/23/23 Total Protein 6.8 g/dL (6.5-8.0) 07/23/23 Albumin 3.9 g/dL (3.5-5.0) 07/23/23 [facility] Medical History (Updated 09/27/23 @ 13:34 by Frandy Banerjee) Hypertension Diabetes Hammer toe Surgical History History of testicular surgery Hx of left knee surgery Family History Father No problems noted. Mother No problems noted. Social History Housing: House Alcohol intake: current Alcohol intake frequency: holidays/special occasions only Patient Tobacco Use Status: Never used Tobacco e-Cigarette/Vaping Use: Never Used Second Hand Smoke Exposure: No service: No Current occupational status: employed Current occupational exposures/hazards: No Cognitive needs: No Hearing needs: No Vision needs: Yes (glasses) Assessment & Plan Assessment & Plan (1) Type 2 diabetes mellitus with hyperglycemia: Code(s): E11.65 - Type 2 diabetes mellitus with hyperglycemia Plan: Learning objectives: The patient was provided with verbal and written education on the following topics as outlined below. The patient met all learning objectives and was able to verbalize understanding and provide teach back of education topics discussed . The patient was provided with the opportunity to ask questions and all questions were answered. Patient Assessment Assess patient education level/literacy/barriers, Patient questions/concerns, patient reports last A1c done September 2023 of 7.1% Patient uses Dexcom G7 to monitor glucose Patient's average glucose for the past 2 weeks 159 mg/dL Patient above target 29% Patient at target 71% Patient below target 0% Patient is currently preparing for surgery on right foot, patient has follow-up appointment with Dr. Kuhn in November 2023 Exercise Medical clearance Effect of exercise on blood sugar Start slowly and gradually increase pace/duration over time Goal amount of exercise Checking blood glucose/have a source of carbs with you Medications (If applicable) * Name of medication * Dosing/administration instructions * Mechanism of action * Potential side effects * Potential adverse reaction and appropriate treatment * Review onset, peak, duration Assess for concerns re: insurance coverage, cost, barriers to compliance Insulin/Injectables (If applicable) * Storage/care of insulin * Injection sites * Site rotation * Onset, peak, duration * Drawing up insulin * Injecting insulin/other injectables * Sharps disposal Continuous blood glucose monitoring (if applicable) Hypoglycemia and Hyperglycemia * Signs and symptoms * Causes * Treatment * Preventing hypoglycemia * When to seek medical attention Medical alert bracelet Lifestyle * Work * Travel * Stress management * Problem solving Know your goals * A1C * Blood sugar targets * Blood pressure * Cholesterol/LDL Urine microalbumin Smart Goal Assessment:Patient will continue with working on increasing percentage of time to keep meals between 45-60 g Pt met goal:Pt 75% of the time: New Goal:? Patient will contact [facility], if he notices increased hyperglycemia Educational Materials: The patient was provided with the following written educational materials: ADCES 7 Healthy Behaviors Reducing Risks handout Patient Response to instructions: Comprehension of Instructions: Good Readiness to make changes: Action How confident they feel about making changes: Positive Letter of completion of diabetes Education program will be sent to referring provider Patient Instructions: Include regular daily activity. ADA recommends 30 minutes of exercise 5 days a week. Weight loss talk to PCP or [employer] Salesperson before starting new plan. Test blood sugar as directed; Fasting and 2hpp largest meal. Watch trends in results. Utilize results and to assess how food, physical activity and medicat ions affect blood sugar results. Bring glucometer or CGM to next visit. Be knowledgeable about diabetes medication, its action, side effects, efficacy, toxicity, prescribed dosage, appropriate timing and frequency of administration, effect of missed and delayed doses and instructions for storage, travel and safety. Problem solving techniques to monitor hypo/hyperglycemia episodes and treatments. Reduce risk reduction behaviors, smoking cessation, regular eye, foot and dental examinations. Patient will follow-up with inclusion special educator in 3 months Coding Level of Care Code Est Pt Level 1 (90430) Diagnoses Type 2 diabetes mellitus with hyperglycemia E11.65
== END 2023-10-11 08:58 | disposition home or self-care (01) ==
PROVIDERS: PCP Family Medicine; Visit Provider Registered Nurse Diabetes Educator
DX: E11.65 Type 2 diabetes mellitus with hyperglycemia (principal)

== ENCOUNTER → 2023-10-11 08:23 | Outpatient (BNVA) | payer OTHER, SELFPAY | PROVIDERS: PCP Family Medicine; Visit Provider Registered Nurse Diabetes Educator | DX: E11.65 Type 2 diabetes mellitus with hyperglycemia (principal) | CPT/HCPCS: 99211 ==

== ENCOUNTER 2023-12-26 09:38 | Outpatient (AMB) | payer OTHER, SELFPAY ==
--- NOTE | 2023-12-26 09:41 | A.OFFVIS_ITS ---
Vital Signs 12/26/23 09:46 Height 6 ft Weight 213 lb 13.574 oz BMI 29.0 BP 130/64 Blood Pressure Location Rt brachial Position Sitting Pulse 70 Pulse Source Pulse Oximeter Intake Visit Reasons: T2DM/CONFIRMED Intake Note: New Patient presents today to established treatment for Diabetes Type 2: Most recent Eye Exam: Couple of months ago Most recent Podiatry Exam: Has an appt tomorrow Most recent HbA1c: 6.3%, 12/26/2023 Random Glucose- 116 mg/dL, Today Project Leader Required: No Accompanied by: Self / Same As Patient Allergies Penicillins [PENICILLINS] Allergy (Intermediate, Verified 12/26/23 09:42) RASH/HIVES Sulfa (Sulfonamide Antibiotics) Allergy (Unknown, Verified 12/26/23 09:42) Unknown DOCXICYCLINE Allergy (Mild, Uncoded 12/26/23 09:49) Rash Medication List - Last Reconciled 12/26/23 by Petra Benz MD blood-glucose sensor (Dexcom G7 Sensor device) DIRECTED CHANGE EVERY 10 DAYS cane As directed dapagliflozin propanediol (Farxiga) 5 mg PO DAILY hydrochlorothiazide 12.5 mg PO DAILY 90 days insulin glargine (Lantus Solostar U-100 Insulin) 34 units (0.34 mL) subcut BID insulin syringe-needle U-100 (BD Insulin Syringe Ultra-Fine) BID Lantus admin levothyroxine 250 mcg (2 x 125 mcg) PO DAILY 90 days linezolid 600 mg PO BID metformin 500 mg PO BID metoprolol succinate ER 12.5 mg (1/2 x 25 mg) PO DAILY 30 days pen needle, diabetic (BD Bhavani 2nd Gen Pen Needle) Once Daily As directed, 90 days simvastatin 20 mg PO QPM 90 days tirzepatide (Mounjaro) 7.5 mg (0.5 mL) subcut QWEEK valsartan 40 mg PO BID 90 days HPI Comments Details: 63 year old male with a past medical history of type 2 diabetes presenting for follow up Initially diagnosed with T2DM in 20 yrs. Current regimen metformin 500 mg BID Mounjaro 7.5 mg qwkly -stopped this 2 weeks ago as appetite was decreased Farxiga 5mg daily Lantus 34 units-started taking 24 units about 4 weeks ago Dexcom download show avg blood glucose 141 with SD 42, GMI 6.7% with 15% high, 84% target, <1% low. Highs occur 12-2am. Snacking before bed. Feels low 5am. Will have orange juice to correct if persistent Family history of T2DM in father, mother,aunts Has eyes checked yearly, last eye exam , has mild retinopathy. Has neuropathy, sees podiatry. Follows Ness Bergman. Recent surgery -foot wound vac following doxy reaction Has CKD, on KACEY/ARB. Is seeing nephrology Has HLD, on statin. Denies CAD. Had diabetes education ROS CONSTITUTIONAL: Denies weight loss, fever and chills. HEENT: Denies changes in vision and hearing. RESPIRATORY: Denies SOB and cough. CV: Denies palpitations and CP GI: Denies abdominal pain, nausea, vomiting and diarrhea. : Denies dysuria and urinary frequency. MSK: Denies new myalgia and joint pain. SKIN:current wound. following wound care NEUROLOGICAL: Denies headache PSYCHIATRIC: Denies recent changes in mood. PHYSICAL EXAM: GENERAL: Alert and oriented x 3. NAD EYES: EOMI. Anicteric. HENT: Moist mucous membranes. No scleral icterus. No cervical lymphadenopathy. LUNGS: Clear to auscultation bilaterally. CARDIOVASCULAR: Regular rate and rhythm. No murmur. No JVD. ABDOMEN: Soft, non-tender +bs EXTREMITIES: No edema. Non-tender. SKIN: No rashes or lesions. Warm. NEUROLOGIC: No focal neurological deficits. CN II-XII grossly intact PSYCHIATRIC: Cooperative. Appropriate mood and affect [facility] Medical History (Updated 12/26/23 @ 10:50 by Petra Benz MD) Hypertension Diabetes Hammer toe Surgical History (Updated 12/26/23 @ 09:50 by CHARLIE Huffman) Hx of foot surgery History of testicular surgery Hx of left knee surgery Family History Father No problems noted. Mother No problems noted. Social History Housing: House Alcohol intake: current Alcohol intake frequency: holidays/special occasions only Patient Tobacco Use Status: Never used Tobacco e-Cigarette/Vaping Use: Never Used Second Hand Smoke Exposure: No service: No Current occupational status: employed Current occupational exposures/hazards: No Cognitive needs: No Hearing needs: No Vision needs: Yes (glasses) Physical Exam Vital Signs: Last Vital Signs Pulse 70 12/26/23 09:46 BP 130/64 12/26/23 09:46 BMI result Body Mass Index 29.0 Results AMB Hemoglobin A1c AMB Hemoglobin A1c 6.3 % Last Edit by CHARLIE Huffman on 12/26/23 10:08 Results Reviewed Results Reviewed: Laboratory Last Values Glucose (Clinic) 116 mg/dL (60-115) H 12/26/23 09:57 Hgb A1c (Clinic) 6.3 % (4.0-6.0) H 12/26/23 09:43 Assessment & Plan Assessment & Plan (1) Type 2 diabetes mellitus with chronic kidney disease: Code(s): E11.22 - Type 2 diabetes mellitus with diabetic chronic kidney disease Category: Medical Qualifiers: Diabetes mellitus intermediate designer insulin use: with intermediate designer use Chronic kidney disease stage: stage 3 (moderate) Chronic kidney disease stage 3 subtype: unspecified whether 3a or 3b Qualified Code(s): E11.22 - Type 2 diabetes mellitus with diabetic chronic kidney disease; N18.30 - Chronic kidney disease, stage 3 unspecified; Z79.4 - terminologist (current) use of insulin Plan: Decrease insulin to 20u nightly Restart mounjaro continue metformin, farxiga (2) Hypothyroid: Code(s): E03.9 - Hypothyroidism, unspecified Category: Medical Qualifiers: Hypothyroidism type: unspecified Qualified Code(s): E03.9 - Hypothyroidism, unspecified Plan: levothyroxine changed from 300mcg to 250mcg following last supressed TSH Plan Follow up in 3 months. Iron studies for upcoming pcp appt. Orders: Orders AMB Hemoglobin A1c Today E11.9 - Type 2 diabetes mellitus without complications TSH reflex Free T4 Today E03.9 - Hypothyroidism, unspecified, E11.22 - Type 2 diabetes mellitus with diabetic chronic kidney disease IRON PROFILE Today E03.9 - Hypothyroidism, unspecified, E11.22 - Type 2 diabetes mellitus with diabetic chronic kidney disease Vitamin B12 and Folate Today E03.9 - Hypothyroidism, unspecified, E11.22 - Type 2 diabetes mellitus with diabetic chronic kidney disease Basic Metabolic Panel Today E11.22 - Type 2 diabetes mellitus with diabetic chronic kidney disease Medications: New tirzepatide (weight loss) 5 mg (0.5 mL) subcut QWEEK 6 mL 3RF Changed From insulin glargine (Lantus Solostar U-100 Insulin) 34 units (0.34 mL) subcut BID 30 mL 5RF To insulin glargine (Lantus Solostar U-100 Insulin) 20 units (0.2 mL) subcut DAILY 30 mL 5RF Discontinued tirzepatide (Mounjaro) Discontinued Reason: Doctor's Order 7.5 mg (0.5 mL) subcut QWEEK 2 mL 5RF Coding Level of Care Code Est Pt Level 5 (10957) Diagnoses Type 2 diabetes mellitus with stage 3 chronic kidney disease, with long-term current use of insulin, unspecified whether stage 3a or 3b CKD E11.22; N18.30; Z79.4 Diabetes mellitus snf insulin use: with snf use Chronic kidney disease stage: stage 3 (moderate) Chronic kidney disease stage 3 subtype: unspecified whether 3a or 3b Hypothyroidism, unspecified type E03.9 Hypothyroidism type: unspecified Time Spent (min) 55
[2023-12-26 09:46] VITALS: BP 130/64; PULSE 70; BMI 29.0
[2023-12-26 10:02] LABS: Glucose, Whole Blood 116 mg/dL (60-115)
== END 2023-12-26 10:38 | disposition home or self-care (01) ==
PROVIDERS: PCP Family Medicine; Visit Provider Internal Medicine
DX: E11.22 Type 2 diabetes mellitus with diabetic chronic kidney disease (principal); N18.30 Chronic kidney disease, stage 3 unspecified; Z79.4 Long term (current) use of insulin; E03.9 Hypothyroidism, unspecified
CPT/HCPCS: 99215; 99417

== ENCOUNTER → 2023-12-26 09:38 | Outpatient (BNVA) | payer OTHER, SELFPAY | PROVIDERS: PCP Family Medicine; Visit Provider Internal Medicine | DX: E11.22 Type 2 diabetes mellitus with diabetic chronic kidney disease (principal); N18.30 Chronic kidney disease, stage 3 unspecified; E03.9 Hypothyroidism, unspecified; Z79.4 Long term (current) use of insulin; Z79.899 Other long term (current) drug therapy | CPT/HCPCS: 82947; 83036 ==

== ENCOUNTER 2023-12-26 10:41 | Outpatient (REF) | payer OTHER, SELFPAY ==
[2023-12-26 12:10] LABS: Anion Gap 13 (12-20); Blood Urea Nitrogen 44 mg/dL (9-16); Calcium 9.7 mg/dL (8.4-10.2); Carbon Dioxide 24 mmol/L (22-29); Chloride 106 mmol/L (96-108); Estimated Glomerular Filt Rate 47; Glucose Random 157 mg/dL (60-115); Iron 119 mcg/dL (45-160); Percent Iron Saturation 40 % (15-50); Potassium 5.2 mmol/L (3.3-5.1); Sodium 138 mmol/L (135-145); Total Iron Binding Capacity 295 mcg/dL (228-428); Unsaturated Iron Binding 176 ug/dL
[2023-12-26 12:13] LABS: TSH reflex Free T4 2.45 uIU/mL (0.32-4.0)
[2023-12-26 14:08] LABS: Folate 10.3 ng/mL (> or = 4.0); Vitamin B12 337 pg/mL (200-900)
== END 2023-12-26 10:42 | disposition home or self-care (01) ==
LOC: HO.10HDL 10:41
PROVIDERS: Visit Provider Internal Medicine
DX: E11.22 Type 2 diabetes mellitus with diabetic chronic kidney disease (principal); E03.9 Hypothyroidism, unspecified
CPT/HCPCS: 36415; 80048; 82607; 82746; 83540; 84443

== ENCOUNTER 2023-12-28 08:31 | Outpatient (AMB) | payer OTHER, SELFPAY ==
[2023-12-28 08:34] VITALS: BP 122/62; PULSE 81; RESP 15; TEMP 36.4; O2SAT 99; BMI 29.0
--- NOTE | 2023-12-28 08:34 | A.OFFPC_ITS ---
Vital Signs 12/28/23 08:34 Height 6 ft Weight 214 lb BMI 29.0 BP 122/62 Blood Pressure Location Rt brachial Position Sitting Respiration 15 Pulse 81 Pulse Source Pulse Oximeter Temp 97.6 F Temp Source Temporal Artery Scan Pulse Oximetry (%) 99 Oxygen Delivery Method Room Air Intake Visit Reasons: f/u hypertension, diabetes Intake Note: Patient has concerns with hi low red blood count and anemia labs. Tack Cutter Required: No Accompanied by: Spouse Allergies Penicillins [PENICILLINS] Allergy (Intermediate, Verified 12/28/23 08:42) RASH/HIVES Sulfa (Sulfonamide Antibiotics) Allergy (Unknown, Verified 12/28/23 08:42) Unknown DOCXICYCLINE Allergy (Mild, Uncoded 12/26/23 09:49) Rash Tobacco use date assessed: 09/27/23 Dental Screening Dental Screen Date: 09/27/23 HPI f/u hypertension, diabetes HPI Details 63 y/o male presents to f/u hypertension , diabetes. A1c 12/26/23 6.3%. He is on lantus 20 units, metformin 500mg b.i.d. Blood pressure today 122/62. He is on metoprolol 12.5mg, valsartan 40mg, hydrochlorothiazide 12.5mg daily. Infection of L foot and continues to improve. He f/u with wound care. Pt reports ongoing fatigue [facility] Medical History (Updated 12/28/23 @ 08:59 by Mark Leavitt MD) Hypertension Diabetes Hammer toe Surgical History (Updated 12/26/23 @ 09:50 by CHARLIE Huffman) Hx of foot surgery History of testicular surgery Hx of left knee surgery Family History Father No problems noted. Mother No problems noted. Social History Housing: House Alcohol intake: current Alcohol intake frequency: holidays/special occasions only Patient Tobacco Use Status: Never used Tobacco e-Cigarette/Vaping Use: Never Used Second Hand Smoke Exposure: No service: No Current occupational status: employed Current occupational exposures/hazards: No Cognitive needs: No Hearing needs: No Vision needs: Yes (glasses) Questionnaire Thrive Questionnaire Date Thrive assessed: 07/23/23 NATI-7 AMB Questionnaire NATI-7 Date NATI - 7 assessed: 07/23/23 Source: Developed by Drs. Malick Sanders, Ann Anthony, Yao Pacheco and colleagues, with an educational brigida from [employer]. Review of Systems Const Denies chills, Denies fatigue, Denies fever(s), Denies headache(s) and Denies weakness ENT Denies dizziness and Denies headache(s) Card Denies chest pain, Denies lightheadedness, Denies dyspnea and Denies other (Palpitations) Resp Denies cough, Denies dyspnea, Denies wheezing and Denies other ( shortness of breath) Musc Denies numbness and Denies tingling Neuro Denies dizziness, Denies headache(s), Denies numbness, Denies tingling, Denies paresthesias and Denies weakness Psych Denies anxiety and Denies depression Endo Denies fatigue Aller/Immun Denies wheezing Physical exam (Primary Care) Vital Signs: Last Vital Signs Temp 97.6 F 12/28/23 08:34 Pulse 81 12/28/23 08:34 Resp 15 12/28/23 08:34 BP 122/62 12/28/23 08:34 Pulse Ox 99 12/28/23 08:34 Oxygen Delivery Method Room Air 12/28/23 08:34 BMI result Body Mass Index 29.0 Tobacco/Smoking Status: Tobacco use Status Tobacco use date assessed 09/27/23 12/28/23 08:35 Patient Tobacco Use Status Never used Tobacco 12/28/23 08:35 e-Cigarette/Vaping Use Never Used 12/28/23 08:35 Thrive Assessment: Date of Thrive Assessment Date Thrive assessed 07/23/23 12/28/23 08:35 Const General: no acute distress and well developed Nutritional Appearance: well nourished Orientation/consciousness: patient oriented x3 HENMT Head: Yes normocephalic and Yes atraumatic Eyes General: appearance normal, both eyes and all related structures Pupils: Equal, round and reactive pupils present EOM: EOMs intact bilaterally Resp Effort & Inspection: normal respiratory effort Auscultation: clear to auscultation bilaterally Cardio Rate: regular rate Rhythm: regular rhythm Heart sounds: S1 normal heart sound present, S2 normal heart sound present, no gallops, no murmurs and no rubs Neuro General: patient oriented x3 and gait normal Cranial nerves: Yes Equal, round and reactive pupils present Psych Affect: normal affect Assessment and Plan Assessment & Plan (1) Infection of left foot: Code(s): L08.9 - Local infection of the skin and subcutaneous tissue, unspecified Plan: Infection?at?left?foot?has?been?improving?recently?and?anti biotic?has?been?discontinued.??He?is?followed?by?wound?care?and?they?continue?de bridement?and?are?considering?a?skin?graft. Follow-up?with?wound?care?as?recommended (2) Hypertension, essential: Code(s): I10 - Essential (primary) hypertension Plan: Blood?pressure?is?well?controlled.??Goal?is?less?than?140/90 Creatinine?had?risen?as?well?as?potassium?but?these?are?improving. Rising?creatinine?likely?secondary?to?his?infection?and?illness. No?changes?to?medication?today If?potassium?continues?to?remain?high?will?consider?adjusting?valsartan (3) Type 2 diabetes mellitus with hyperglycemia: Code(s): E11.65 - Type 2 diabetes mellitus with hyperglycemia Plan: A1c?6.3%?a?couple?of?days?ago.??Good?control.??Goal?is?less?than?7.0% Followed?by?[facility]?endocrinology, ?[facility] Continue?current?medication?regimen (4) Chronic kidney disease: Code(s): N18.9 - Chronic kidney disease, unspecified Plan: Creatinine?level?has?risen?again Was followed by Dr. Ramirez who is no longer at?[facility] Will?refer?him?back?to?[facility]?Nephrology (5) Hypothyroid: Code(s): E03.9 - Hypothyroidism, unspecified Qualifiers: Hypothyroidism type: unspecified Qualified Code(s): E03.9 - Hypothyroidism, unspecified Plan: Recently suppressed TSH. Decreased?levothyroxine?and?TS H?level?is?now?within?normal?range Will?recheck?levels?periodically (6) Anemia: Code(s): D64.9 - Anemia, unspecified Plan: Anemia?has?worsened?and?hemoglobin?level?at?[facility]?recently?was?9.8.??His?baseline? is?around?10.3?or?10.5 Iron?levels?were?okay His?anemia?is?likely?due?to?chronic?renal ?failure?and?recent?decrease?most?likely?due?to?infection Nevertheless,?patient?is?worried?about?GI?bleeding.??He?denies?any?blood?in?his? stools?however.??Will?refer?him?to?Gastroenterology?at?his?request. Will repeat?H&H?and?iron?studies.??He?can?resume?iron?supplementation, OTC?and?can?take?every?other?day. Orders: Orders Complete Blood Count Auto Diff Today D64.9 - Anemia, unspecified, Z00.00 - Encounter for general adult medical examination without abnormal findings Free T4 (Free Thyroxine) Today E03.9 - Hypothyroidism, unspecified, R79.89 - Other specified abnormal findings of blood chemistry Triiodothyronine T3 Total Today E03.9 - Hypothyroidism, unspecified, R79.89 - Other specified abnormal findings of blood chemistry Comprehensive Met. Panel Today N18.9 - Chronic kidney disease, unspecified IRON PROFILE Today D64.9 - Anemia, unspecified Reticulocyte Count Today D64.9 - Anemia, unspecified Ferritin Today D64.9 - Anemia, unspecified Thyroid Stimulating Hormone Today E03.9 - Hypothyroidism, unspecified, R79.89 - Other specified abnormal findings of blood chemistry Medications: Changed From dapagliflozin propanediol (Farxiga) 5 mg PO DAILY 30 tabs 3RF E11.65 - Type 2 diabetes mellitus with hyperglycemia To dapagliflozin propanediol (Farxiga) 5 mg PO DAILY 90 days 90 tabs 3RF E11.65 - Type 2 diabetes mellitus with hyperglycemia Coding Level of Care Code Est Pt Level 4 (72194) Diagnoses Infection of left foot L08.9 Hypertension, essential I10 Type 2 diabetes mellitus with hyperglycemia E11.65 Chronic kidney disease N18.9 Hypothyroidism, unspecified type E03.9 Hypothyroidism type: unspecified Anemia D64.9
== END 2023-12-28 12:39 | disposition home or self-care (01) ==
PROVIDERS: PCP Family Medicine; Visit Provider Family Medicine
DX: L08.9 Local infection of the skin and subcutaneous tissue, unspecified (principal); I12.9 Hypertensive chronic kidney disease with stage 1 through stage 4 chronic kidney disease, or unspecified chronic kidney disease; E11.65 Type 2 diabetes mellitus with hyperglycemia; N18.9 Chronic kidney disease, unspecified; E03.9 Hypothyroidism, unspecified; D64.9 Anemia, unspecified
CPT/HCPCS: 99214

== ENCOUNTER 2024-01-02 11:57 | Outpatient (REF) | payer OTHER, SELFPAY ==
[2024-01-02 13:28] LABS: MANUAL DIFF FLAG NO
[2024-01-02 13:34] LABS: Basophils Percent Auto 0.5 % (0-2); Eosinophils Absolute Auto 0.3 X10*3/uL (0.0-0.4); Eosinophils Percent Auto 3.2 % (0-4); Hematocrit 30.3 % (42.0-52.0); Hemoglobin 10.1 g/dl (14.0-18.0); Imm Gran Abs Auto 0.05 X10*3/uL (0.00-0.03); Imm Gran Pct Auto 0.6 % (0.0-0.4); Immature Retic Fraction 27.7 % (2.3-13.4); Lymphocytes Absolute Auto 2.2 X10*3/uL (1.2-4.9); Lymphocytes Percent Auto 27.3 % (20-40); Mean Corpuscular HGB Conc 33.3 g/dl (31.0-36.0); Mean Corpuscular Hemoglobin 30.1 pg (27.0-33.0); Mean Corpuscular Volume 90.2 fL (80.0-98.0); Mean Platelet Volume 10.5 fL (9.4-12.4); Monocytes Absolute Auto 0.8 X10*3/uL (0.1-1.2); Monocytes Percent Auto 10.2 % (2-11); Neutrophils Absolute Auto 4.7 x10*3/uL (2.0-8.3); Neutrophils Percent Auto 58.2 % (45-73); Red Blood Count 3.36 X10*6/uL (4.60-5.80); Red Cell Distribution Width 18.3 % (11.0-16.0); Retic HGB Equivalent 35.5 pg (30.0-35.0); Reticulocyte Percent 2.6 % (0.5-1.8); Reticulocytes Absolute 0.087 X10*6/uL (0.026-0.095); White Blood Count 8.1 X10*3/uL (4.8-10.8)
[2024-01-02 13:44] LABS: Platelet Count 155 X10*3/uL (160-400)
[2024-01-02 14:08] LABS: Alanine Aminotransferase 19 U/L (0-40); Albumin Level 4.3 g/dL (3.5-5.0); Alkaline Phosphatase 67 U/L (39-117); Anion Gap 14 (12-20); Aspartate Amino Transferase 16 U/L (5-37); Bilirubin Total 0.2 mg/dL (0.0-1.0); Blood Urea Nitrogen 30 mg/dL (9-16); Calcium 9.9 mg/dL (8.4-10.2); Carbon Dioxide 27 mmol/L (22-29); Chloride 104 mmol/L (96-108); Estimated Glomerular Filt Rate 51; Ferritin 102 ng/mL (20-250); Free T4 (Free Thyroxine) 0.96 ng/dL (0.71-1.85); Glucose Random 110 mg/dL (60-115); Iron 43 mcg/dL (45-160); Percent Iron Saturation 16 % (15-50); Potassium 4.7 mmol/L (3.3-5.1); Sodium 140 mmol/L (135-145); Thyroid Stimulating Hormone 5.71 uIU/mL (0.32-4.0); Total Iron Binding Capacity 274 mcg/dL (228-428); Total Protein 7.3 g/dL (6.5-8.0); Unsaturated Iron Binding 231 ug/dL
[2024-01-03 08:34] LABS: Triiodothyronine T3 Total 62 ng/dL (76-181)
== END 2024-01-02 11:58 | disposition home or self-care (01) ==
LOC: HO.10HDL 11:57
PROVIDERS: Visit Provider Family Medicine
DX: Z00.00 Encounter for general adult medical examination without abnormal findings (principal); D64.9 Anemia, unspecified; E03.9 Hypothyroidism, unspecified; R79.89 Other specified abnormal findings of blood chemistry; N18.9 Chronic kidney disease, unspecified
CPT/HCPCS: 36415; 80053; 82728; 83540; 84439; 84443; 84480; 85025; 85045

== ENCOUNTER 2024-01-04 15:32 | Outpatient (AMB) | payer OTHER, SELFPAY ==
--- NOTE | 2024-01-04 15:33 | A.OFFPC_ITS ---
Intake Visit Reasons: f/u anemia via telemedicine Intake Note: Junaid is a 63 year old male who presents to the office as a telehealth for f/u anemia. Allergies Penicillins [PENICILLINS] Allergy (Intermediate, Verified 01/04/24 15:33) RASH/HIVES Sulfa (Sulfonamide Antibiotics) Allergy (Unknown, Verified 01/04/24 15:33) Unknown DOCXICYCLINE Allergy (Mild, Uncoded 01/04/24 15:33) Rash Medication List - Last Reconciled 01/04/24 by Mark Leavitt MD blood-glucose sensor ([employer] G7 Sensor device) DIRECTED CHANGE EVERY 10 DAYS cane As directed dapagliflozin propanediol (Farxiga) 5 mg PO DAILY 90 days dapagliflozin propanediol (Farxiga) 5 mg PO DAILY hydrochlorothiazide 12.5 mg PO DAILY 90 days insulin glargine (Lantus Solostar U-100 Insulin) 20 units (0.2 mL) subcut DAILY insulin syringe-needle U-100 (BD Insulin Syringe Ultra-Fine) BID Lantus admin levothyroxine 250 mcg (2 x 125 mcg) PO DAILY 90 days metformin 500 mg PO BID pen needle, diabetic (BD Bhavani 2nd Gen Pen Needle) Once Daily As directed, 90 days simvastatin 20 mg PO QPM 90 days tirzepatide (weight loss) 5 mg (0.5 mL) subcut QWEEK valsartan 40 mg PO BID 90 days Tobacco use date assessed: 09/27/23 Dental Screening Dental Screen Date: 09/27/23 HPI f/u anemia via telemedicine HPI Details 63 y/o male presents to f/u anemia via t elemedicine. Also rechecking TSH as well as free T4 and total T3 levels. Labs were drawn 01/02/24. Reviewed labs with pt. Anemia mildly worsened. Iron levels mildly low at 43 mcg/dL. TSH level 5.71 uIU/mL. Free T4 0.96 ng/dL. Total T3 62 ng/dL. Pt notes L foot infection continues to improve. [facility] Medical History (Updated 12/28/23 @ 08:59 by Mark Leavitt MD) Hypertension Diabetes Hammer toe Surgical History (Updated 12/26/23 @ 09:50 by CHARLIE Huffman) Hx of foot surgery History of testicular surgery Hx of left knee surgery Family History Father No problems noted. Mother No problems noted. Social History Housing: House Alcohol intake: current Alcohol intake frequency: holidays/special occasions only Patient Tobacco Use Status: Never used Tobacco e-Cigarette/Vaping Use: Never Used Second Hand Smoke Exposure: No service: No Current occupational status: employed Current occupational exposures/hazards: No Cognitive needs: No Hearing needs: No Vision needs: Yes (glasses) Questionnaire PHQ-9 Over the last 2 weeks, how often have you been bothered by any of the following problems? 1. Little interest or pleasure in doing things: not at all 2. Feeling down, depressed, or hopeless: not at all 3. Trouble falling or staying asleep, or sleeping too much: not at all 4. Feeling tired or having little energy: not at all 5. Poor appetite or overeating: not at all 6. Feeling bad about yourself - or that you are a failure or have let yourself or your family down: not at all 7. Trouble concentrating on things, such as reading the newspaper or watching television: not at all 8. Moving or speaking so slowly that other people could have noticed. Or the opposite - being so fidgety or restless that you have been moving around a lot more than usual: not at all 9. Thoughts that you would be better off or of hurting yourself in some way: not at all Total score: 0 Source: Developed by Drs. Malick Sanders, Ann Anthony, Yao Pacheco and colleagues, with an educational brigida from [employer]. Thrive Questionnaire Date Thrive assessed: 07/23/23 I am a: Patient What is your living situation today?: I have a steady place to live Within the past 12 months, did the food you bought not last and you didn't have the money to get more?: Never true Within the past 12 months, did you worry whether your food would run out before you got money to buy more?: Never true Do you have trouble paying for medicines?: No Do you have trouble getting transportation to medical appointments?: No Do you have trouble paying your heating and electricity bill?: No Do you have trouble taking care of your child, family member or friend?: No Do you have trouble with day-to-day activities such as bathing, preparing meals, shopping, managing finances, etc.?: No Are you currently unemployed and looking for a job?: No Are you interested in more education?: No THRIVE Score: 0 AUDIT C Alcohol Use Questionnaire (AUDIT-C) 1. How often do you have a drink containing alcohol?: Monthly or less 2. How many drinks containing alcohol do you have on a typical day when you are drinking?: 1 or 2 3. How often do you have six or more drinks on one occasion?: Never Total Score: 1 NATI-7 AMB Questionnaire NATI-7 Date NATI - 7 assessed: 07/23/23 Feeling nervous, anxious, or on edge: 0 = Not at all Not being able to stop or control worryin = Not at all Worrying too much about different things: 0 = Not at all Trouble relaxin = Not at all Being so restless that it is hard to sit still: 0 = Not at all Becoming easily annoyed or irritable: 0 = Not at all Feeling afraid as if something awful might happen: 0 = Not at all Total NATI-7 score (0-4 normal; 5-9 mild; 10-14 moderate; 15-21 severe): 0 Source: Developed by Drs. Malick Sanders, Ann Anthony, Yao Pacheco and colleagues, with an educational brigida from [employer]. Review of Systems Const Denies chills, Denies fatigue, Denies fever(s), Denies headache(s) and Denies weakness ENT Denies dizziness and Denies headache(s) Card Denies dyspnea Resp Denies cough, Denies dyspnea, Denies wheezing and Denies other (shortness of breath) Musc Denies numbness and Denies tingling Neuro Denies dizziness, Denies headache(s), Denies numbness, Denies tingling and Denies weakness Psych Denies anxiety and Denies depression Endo Denies fatigue Aller/Immun Denies wheezing Physical exam (Primary Care) Tobacco/Smoking Status: Tobacco use Status Tobacco use date assessed 09/27/23 01/04/24 15:36 Patient Tobacco Use Status Never used Tobacco 01/04/24 15:36 e-Cigarette/Vaping Use Never Used 01/04/24 15:36 PHQ-9: PHQ-9 Score PHQ-9: Total score 0 01/04/24 15:46 Thrive Assessment: Date of Thrive Assessment Date Thrive assessed 07/23/23 01/04/24 15:36 Telehealth Telehealth Telehealth Platform: Telephone Location of provider rendering services: practice address Location of patient: address on file Patient Identification confirmed using: Name, : Yes Telehealth method: voice only Patient verbally consented to treatment: Yes Patient verbally consented to billing insurance company: Yes Patient informed of any privacy concerns related to visit: Yes Minutes spent on Phone/Video with Pt.: 17 Assessment and Plan Assessment & Plan (1) Anemia: Code(s): D64.9 - Anemia, unspecified Plan: Going?mild?but?steadily?worsening?anemia?with?new?decrease?in?iron?store Retic?count?is?appropriately?elevated Bilirubin?is?within?normal?range Suspecting?he?may?have?blood?loss?somewhere.??He?has?a?referral?to?gastroenterol ogy. He?does?have?an?infection?on?his?foot?and?does?get?some?debriding do ne?regularly?but?patient?says?that?has?only?minimal?bleeding Doubt?sequestration He?has?a?referral?to?gastroenterology?and?he?will?call?them?for?an?appointment. Encouraged?him?to?take?iron?which?he?has?at?home Will?refer?him?to?Hematology-Oncology?at?his?request Follow-up?in?a?month (2) Hypothyroid: Code(s): E03.9 - Hypothyroidism, unspecified Qualifiers: Hypothyroidism type: unspecified Qualified Code(s): E03.9 - Hypothyroidism, unspecified Plan: TSH?was?significantly?suppressed?and?I?decreased?his?levothyroxine.??At?last?guicho ck?TSH?was?within?normal?range. More?recently,?TSH?is?mildly?elevated?however?he?has?had?an?infection We?will?recheck?thyroid?hormone?levels?at?his?next?visit If?still?having?difficulty?with?this?we?can?consider?referral?to?Endocrine (3) Infection of left foot: Code(s): L08.9 - Local infection of the skin and subcutaneous tissue, unspecified Plan: Followed?by?wound?care?and?using?wound?VAC?and?debridement His?specialist?recommends?a?skin?graft?and?they?are?waiting?for?approval?from?in surance?for?payment?cover (4) Chronic kidney disease: Code(s): N18.9 - Chronic kidney disease, unspecified Plan: Creatinine?back?within?normal?range?and?GFR?at?baseline Will?continue?to?follow Recommended?he?follow-up?with?his?network program manager. Orders: Orders Thyroid Stimulating Hormone Today E03.9 - Hypothyroidism, unspecified Complete Blood Count Man Dif Today D64.9 - Anemia, unspecified Comprehensive Met. Panel Today E11.22 - Type 2 diabetes mellitus with diabetic chronic kidney disease, N18.30 - Chronic kidney disease, stage 3 unspecified, Z79.4 - correction (current) use of insulin Free T4 (Free Thyroxine) Today E03.9 - Hypothyroidism, unspecified Triiodothyronine T3 Total Today E03.9 - Hypothyroidism, unspecified IRON PROFILE Today D64.9 - Anemia, unspecified Coding Level of Care Code Tele Est Pt Level 2 (36448) Diagnoses Anemia D64.9 Hypothyroidism, unspecified type E03.9 Hypothyroidism type: unspecified Infection of left foot L08.9 Chronic kidney disease N18.9
== END 2024-01-04 16:32 | disposition home or self-care (01) ==
LOC: HO.HMGFM 15:32
PROVIDERS: PCP Family Medicine; Visit Provider Family Medicine
DX: D64.9 Anemia, unspecified (principal); E03.9 Hypothyroidism, unspecified; L08.9 Local infection of the skin and subcutaneous tissue, unspecified; N18.9 Chronic kidney disease, unspecified
CPT/HCPCS: 99442

== ENCOUNTER → 2024-01-22 08:20 | Outpatient (BNV) | payer OTHER, SELFPAY | PROVIDERS: PCP Family Medicine; Visit Provider Internal Medicine Medical Oncology | DX: D64.9 Anemia, unspecified (principal) | CPT/HCPCS: 99213; 99214 ==

== ENCOUNTER 2024-02-21 10:52 | Outpatient (AMB) | payer OTHER, SELFPAY ==
--- NOTE | 2024-02-21 11:01 | MHC.PC.OV ---
Vital Signs 02/21/24 11:02 Height 6 ft Weight 210 lb BMI 28.5 BP 120/50 L Blood Pressure Location Rt brachial Position Sitting Respiration 12 Pulse 71 Pulse Source Pulse Oximeter Temp 96.9 F Temp Source Tympanic Pulse Oximetry (%) 99 Oxygen Delivery Method Room Air Intake Visit Reasons: f/u chronic conditions-see a+p Allergies Penicillins [PENICILLINS] Allergy (Intermediate, Verified 01/22/24 08:33) RASH/HIVES Sulfa (Sulfonamide Antibiotics) Allergy (Unknown, Verified 01/22/24 08:33) Unknown DOCXICYCLINE Allergy (Mild, Uncoded 01/22/24 08:33) Rash Medication List - Last Reconciled 02/21/24 by Mark Leavitt MD blood-glucose sensor ([place] G7 Sensor device) DIRECTED CHANGE EVERY 10 DAYS cane As directed dapagliflozin propanediol (Farxiga) 5 mg PO DAILY 90 days dapagliflozin propanediol (Farxiga) 5 mg PO DAILY hydrochlorothiazide 12.5 mg PO DAILY 90 days insulin glargine (Lantus Solostar U-100 Insulin) 20 units (0.2 mL) subcut DAILY insulin syringe-needle U-100 (BD Insulin Syringe Ultra-Fine) BID Lantus admin levothyroxine 250 mcg (2 x 125 mcg) PO DAILY 90 days metformin 500 mg PO BID pen needle, diabetic (BD Bhavani 2nd Gen Pen Needle) Once Daily As directed, 90 days simvastatin 20 mg PO QPM 90 days tirzepatide (weight loss) 5 mg (0.5 mL) subcut QWEEK valsartan 40 mg PO BID 90 days Tobacco use date assessed: 09/27/23 Dental Screening Dental Screen Date: 09/27/23 HPI f/u chronic conditions-see a+p HPI Details 63 y/o male presents to f/u chronic conditions. Had an ongoing mild but steadily worsening anemia with decrease in iron store. Had referred him to GI, Hematology-Oncology. Had seen Heme-Onc 01/22/24 - they note anemia appeared more consistent with chronic disease. They plan to monitor blood count. Denies any blood in stool. Ongoing discomfort with neck/shoulder. Pt reports blood pressure at home have been low. PFS Medical History (Updated 02/21/24 @ 11:51 by Mark Leavitt MD) Hypertension Diabetes Hammer toe Surgical History (Updated 01/22/24 @ 09:19 by Mg Branham MD) Hx of foot surgery History of testicular surgery Hx of left knee surgery Family History Father No problems noted. Mother No problems noted. Social History (Updated 01/22/24 @ 08:33 by Collin Bedoya) Housing: House Alcohol intake: current Alcohol intake frequency: holidays/special occasions only Patient Tobacco Use Status: Never used Tobacco e-Cigarette/Vaping Use: Never Used Second Hand Smoke Exposure: No service: No Current occupational status: employed Current occupational exposures/hazards: No Cognitive needs: No Hearing needs: No Vision needs: Yes (glasses) Questionnaire Thrive Questionnaire Date Thrive assessed: 07/23/23 AUDIT C Alcohol Use Questionnaire (AUDIT-C) 3. How often do you have six or more drinks on one occasion?: Never Total Score: 0 NATI-7 AMB Questionnaire NATI-7 Date NATI - 7 assessed: 07/23/23 Source: Developed by Drs. Malick Sanders, Ann Anthony, Yao Pacheco and colleagues, with an educational brigida from [employer]. Review of Systems Const Denies chills, Denies fatigue, Denies fever(s), Denies headache(s) and Denies weakness ENT Denies dizziness and Denies headache(s) Card Denies chest pain, Denies lightheadedness, Denies dyspnea and Denies other (Palpitations) Resp Denies cough, Denies dyspnea, Denies wheezing and Denies other ( shortness of breath) Musc Denies numbness and Denies tingling Neuro Denies dizziness, Denies headache(s), Denies numbness, Denies tingling, Denies paresthesias and Denies weakness Psych Denies anxiety and Denies depression Endo Denies fatigue Aller/Immun Denies wheezing Physical exam (Primary Care) Vital Signs: Last Vital Signs Temp 96.9 F 02/21/24 11:02 Pulse 71 02/21/24 11:02 Resp 12 02/21/24 11:02 BP 120/50 L 02/21/24 11:02 Pulse Ox 99 02/21/24 11:02 Oxygen Delivery Method Room Air 02/21/24 11:02 BMI result Body Mass Index 28.5 Tobacco/Smoking Status: Tobacco use Status Tobacco use date assessed 09/27/23 02/21/24 11:07 Patient Tobacco Use Status Never used Tobacco 02/21/24 11:07 e-Cigarette/Vaping Use Never Used 02/21/24 11:07 Thrive Assessment: Date of Thrive Assessment Date Thrive assessed 07/23/23 02/21/24 11:07 Const General: no acute distress and well developed Nutritional Appearance: well nourished Orientation/consciousness: patient oriented x3 HENMT Head: Yes normocephalic and Yes atraumatic Eyes General: appearance normal, both eyes and all related structures Pupils: Equal, round and reactive pupils present EOM: EOMs intact bilaterally Resp Effort & Inspection: normal respiratory effort Auscultation: clear to auscultation bilaterally Cardio Rate: regular rate Rhythm: regular rhythm Heart sounds: S1 normal heart sound present, S2 normal heart sound present, no gallops, no murmurs and no rubs Neuro General: patient oriented x3 and gait normal Cranial nerves: Yes Equal, round and reactive pupils present Psych Affect: normal affect Assessment and Plan Assessment & Plan (1) Anemia: Code(s): D64.9 - Anemia, unspecified Plan: Stable Now?followed?by?Hematology-Oncology?and?likely?diagnosis?is?anemia?of?chronic?disease He?has?follow-up?next?week He?says?he?also?has?an?upcoming?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 mellitus intermediate school teacher insulin use: with usp use Qualified Code(s): E11.22 - Type 2 diabetes mellitus with diabetic chronic kidney disease; N18.30 - Chronic kidney disease, stage 3 unspecified; Z79.4 - terminal block assembler (current) use of insulin Plan: Patient?has?upcoming?appointment?with?endocrinology No?changes?made?to?regimen?today (6) Infection of left foot: Code(s): L08.9 - Local infection of the skin and subcutaneous tissue, unspecified Plan: Much?improved Follow-up?with?wound?care?as?recommended (7) Swelling of lower extremity: Code(s): M79.89 - Other specified soft tissue disorders Plan: Elevate?legs Avoid?salt/sodium Orders: Orders Comprehensive Met. Panel Today N18.9 - Chronic kidney disease, unspecified PT Evaluation and Treatment Today M25.519 - Pain in unspecified shoulder, M54.2 - Cervicalgia Free T4 (Free Thyroxine) Today E03.9 - Hypothyroidism, unspecified Triiodothyronine T3 Total Today E03.9 - Hypothyroidism, unspecified Thyroid Stimulating Hormone Today E03.9 - Hypothyroidism, unspecified Medications: Changed From levothyroxine 250 mcg (2 x 125 mcg) PO DAILY 90 days 180 tabs 6RF To levothyroxine 250 mcg (2 x 125 mcg) PO DAILY 30 days 60 tabs 1RF Coding Level of Care Code Est Pt Level 4 (42322) Diagnoses Anemia D64.9 Chronic kidney disease N18.9 Hypertension, essential I10 Cervicalgia M54.2 Type 2 diabetes mellitus with stage 3 chronic kidney disease, with long-term current use of insulin, unspecified whether stage 3a or 3b CKD E11.22; N18.30; Z79.4 Chronic kidney disease stage: stage 3 (moderate) Chronic kidney disease stage 3 subtype: unspecified whether 3a or 3b Diabetes mellitus usp insulin use: with intermediate school teacher use Infection of left foot L08.9 Swelling of lower extremity M79.89
[2024-02-21 11:02] VITALS: BP 120/50; PULSE 71; RESP 12; TEMP 36.1; O2SAT 99; BMI 28.5
== END 2024-02-21 11:48 | disposition home or self-care (01) ==
PROVIDERS: PCP Family Medicine; Visit Provider Family Medicine
DX: I12.9 Hypertensive chronic kidney disease with stage 1 through stage 4 chronic kidney disease, or unspecified chronic kidney disease (principal); N18.30 Chronic kidney disease, stage 3 unspecified; E11.22 Type 2 diabetes mellitus with diabetic chronic kidney disease; Z79.4 Long term (current) use of insulin; D64.9 Anemia, unspecified; M54.2 Cervicalgia; L08.9 Local infection of the skin and subcutaneous tissue, unspecified; M79.89 Other specified soft tissue disorders
CPT/HCPCS: 99214

== ENCOUNTER 2024-02-21 11:54 | Outpatient (REF) | payer OTHER, SELFPAY ==
[2024-02-21 14:29] LABS: Baso%MD 0.5 %; Eos%MD 2.4 %; Hematocrit 31.5 % (42.0-52.0); Hemoglobin 10.4 g/dl (14.0-18.0); IG%MD 0.3 %; Lymph%MD 24.4 %; Mean Corpuscular Hemoglobin 29.1 pg (27.0-33.0); Mean Platelet Volume 9.7 fL (9.4-12.4); Mono%MD 9.2 %; Neut%MD 63.2 %; Platelet Count 264 X10*3/uL (160-400); Red Blood Count 3.58 X10*6/uL (4.60-5.80); Red Cell Distribution Width 15.6 % (11.0-16.0); White Blood Count 6.3 X10*3/uL (4.8-10.8)
[2024-02-21 14:32] LABS: Estimated Average Glucose 134 mg/dL; Hemoglobin A1c % 6.3 % (<6.0); Total Hemoglobin (HGBA1C) 2603.0257 umol/L
[2024-02-21 14:51] LABS: Alanine Aminotransferase 20 U/L (0-40); Alkaline Phosphatase 66 U/L (39-117); Anion Gap 13 (12-20); Aspartate Amino Transferase 16 U/L (5-37); Bilirubin Total 0.2 mg/dL (0.0-1.0); Blood Urea Nitrogen 40 mg/dL (9-16); Calcium 9.6 mg/dL (8.4-10.2); Carbon Dioxide 24 mmol/L (22-29); Chloride 106 mmol/L (96-108); Estimated Glomerular Filt Rate 45; Glucose Random 150 mg/dL (60-115); Iron 40 mcg/dL (45-160); Percent Iron Saturation 15 % (15-50); Sodium 138 mmol/L (135-145); Total Iron Binding Capacity 272 mcg/dL (228-428); Total Protein 7.2 g/dL (6.5-8.0); Unsaturated Iron Binding 232 ug/dL
[2024-02-21 15:14] LABS: Free T4 (Free Thyroxine) 1.79 ng/dL (0.71-1.85); Thyroid Stimulating Hormone < 0.01 uIU/mL (0.32-4.0)
[2024-02-21 15:49] LABS: Eosinophils Absolute Manual 0.1 X10*3/uL (0.0-0.4); Eosinophils Percent Manual 1 % (0-4); Lymphocytes Absolute Manual 1.4 X10*3/uL (1.2-4.9); Lymphocytes Percent Manual 22 % (20-40); Monocytes Absolute Manual 0.2 X10*3/uL (0.1-1.2); Monocytes Percent Manual 3 % (2-11); Neutrophils Percent Manual 74 % (45-73); Ovalocytes 1+ (5-14) /OIF; Platelet Estimate NORMAL (NORMAL); Platelet Morphology Comment NORMAL; RBC Morphology NOTED
[2024-02-21 17:52] LABS: Band Neutrophils Percent 0 % (3-5); Neutrophils Absolute Manual 4.7 X10*3/uL (2.0-8.3)
[2024-02-22 19:49] LABS: Triiodothyronine T3 Total 100 ng/dL (76-181)
== END 2024-02-21 11:55 | disposition home or self-care (01) ==
LOC: HO.WFDLDS 11:54
PROVIDERS: Referring Provider Internal Medicine Endocrinology, Diabetes & Metabolism; Visit Provider Family Medicine
DX: D64.9 Anemia, unspecified (principal); E11.65 Type 2 diabetes mellitus with hyperglycemia; E03.9 Hypothyroidism, unspecified; R79.89 Other specified abnormal findings of blood chemistry; N18.9 Chronic kidney disease, unspecified
CPT/HCPCS: 36415; 80053; 83036; 83540; 84439; 84443; 84480; 85007; 85027

== ENCOUNTER → 2024-03-05 12:52 | Outpatient (AMB) | payer OTHER, SELFPAY ==
--- NOTE | 2024-03-05 12:48 | MHC.PC.OV ---
Intake Visit Reasons: f/u labs via telemedicine Intake Note: lab review Allergies Penicillins [PENICILLINS] Allergy (Intermediate, Verified 03/05/24 12:49) RASH/HIVES Sulfa (Sulfonamide Antibiotics) Allergy (Unknown, Verified 03/05/24 12:49) Unknown DOCXICYCLINE Allergy (Mild, Uncoded 02/25/24 09:56) Rash Tobacco use date assessed: 09/27/23 Dental Screening Dental Screen Date: 09/27/23 HPI f/u labs via telemedicine HPI Details 63 y/o male presents to review hypothyroidism and CRF via telemedicine. Labs drawn 02/25/24. Reviewed labs with pt. Ongoing anemia. TSH <0.01. Free T4 1.79. Total T3 100. He is on levothyroxine 250mcg daily. [facility] Medical History Hypertension Diabetes Hammer toe Surgical History Hx of foot surgery History of testicular surgery Hx of left knee surgery Family History Father No problems noted. Mother No problems noted. Social History Housing: House Alcohol intake: current Alcohol intake frequency: holidays/special occasions only Patient Tobacco Use Status: Never used Tobacco e-Cigarette/Vaping Use: Never Used Second Hand Smoke Exposure: No service: No Current occupational status: employed Current occupational exposures/hazards: No Cognitive needs: No Hearing needs: No Vision needs: Yes (glasses) Questionnaire Thrive Questionnaire Date Thrive assessed: 07/23/23 NATI-7 AMB Questionnaire NATI-7 Date NATI - 7 assessed: 07/23/23 Source: Developed by Drs. Malick Sanders, Ann Anthony, Yao Pacheco and colleagues, with an educational brigida from [employer]. Review of Systems Const Denies chills, Denies fatigue, Denies fever(s), Denies headache(s) and Denies weakness ENT Denies dizziness and Denies headache(s) Card Denies dyspnea Resp Denies cough, Denies dyspnea, Denies wheezing and Denies other (shortness of breath) Musc Denies numbness and Denies tingling Neuro Denies dizziness, Denies headache(s), Denies numbness, Denies tingling and Denies weakness Psych Denies anxiety and Denies depression Endo Denies fatigue Aller/Immun Denies wheezing Physical exam (Primary Care) Tobacco/Smoking Status: Tobacco use Status Tobacco use date assessed 09/27/23 03/05/24 12:51 Patient Tobacco Use Status Never used Tobacco 03/05/24 12:51 e-Cigarette/Vaping Use Never Used 03/05/24 12:51 Thrive Assessment: Date of Thrive Assessment Date Thrive assessed 07/23/23 03/05/24 12:51 Telehealth Telehealth Telehealth Platform: Telephone Location of provider rendering services: practice address Location of patient: address on file Patient Identification confirmed using: Name, : Yes Telehealth method: voice only Patient verbally consented to treatment: Yes Patient verbally consented to billing insurance company: Yes Patient informed of any privacy concerns related to visit: Yes Assessment and Plan Assessment & Plan (1) Hypothyroid: Code(s): E03.9 - Hypothyroidism, unspecified Qualifiers: Hypothyroidism type: unspecified Qualified Code(s): E03.9 - Hypothyroidism, unspecified Plan: TSH?had?been?elevated?but?patient?had?been?ill Free?T4?and?total?T3?are?now?within?normal?range.??TSH?appears?mildly?suppressed. No?medication?changes?made?today?will?recheck?in?3?months (2) Chronic kidney disease: Code(s): N18.9 - Chronic kidney disease, unspecified Plan: Creatinine?1.45?is?improved. Will?continue?to?monitor (3) Anemia: Code(s): D64.9 - Anemia, unspecified Plan: Ongoing?mild?anemia. Iron?level?has?decreased?slightly Plan He?can?follow-up?in?a?few?months?by?telemedicine?for?hypothyroidism.??Labs?are?ordered. Also?has?appointment?with?Hematology-Oncology and?endocrinology?coming?up. Coding Level of Care Code Tele Est Pt Level 2 (66788) Diagnoses Hypothyroidism, unspecified type E03.9 Hypothyroidism type: unspecified Chronic kidney disease N18.9 Anemia D64.9
== END ==
LOC: HO.HMCFM 12:52
PROVIDERS: PCP Family Medicine; Visit Provider Family Medicine
DX: E03.9 Hypothyroidism, unspecified (principal); N18.9 Chronic kidney disease, unspecified; D64.9 Anemia, unspecified

== ENCOUNTER → 2024-03-05 12:52 | Outpatient (BNVA) | payer OTHER, SELFPAY | PROVIDERS: PCP Family Medicine; Visit Provider Family Medicine | DX: E03.9 Hypothyroidism, unspecified (principal); N18.9 Chronic kidney disease, unspecified; D64.9 Anemia, unspecified ==

== ENCOUNTER 2024-05-15 15:22 | Outpatient (AMB) | payer OTHER, SELFPAY ==
--- NOTE | 2024-05-15 15:23 | A.OFFVIS_ITS ---
Vital Signs 05/15/24 15:24 Height 6 ft Weight 205 lb BMI 27.8 BP 118/78 Blood Pressure Location Rt brachial Position Sitting Pulse 74 Pulse Source Pulse Oximeter Intake Visit Reasons: DM/Confirmed Intake Note: Patient presents today for a follow-up on Type 2 Diabetes Mellitus: Last Diabetic eye exam was on: 12/27/2023 Last Podiatry exam was on: Does not see a Accounting Methods Analyst Most recent HbA1c: 7.1%, 05/15/2024 Random Glucose- 134 mg/dL, Today Sales Service Manager Required: No Accompanied by: Self / Same As Patient Allergies Penicillins [PENICILLINS] Allergy (Intermediate, Verified 05/15/24 15:24) RASH/HIVES Sulfa (Sulfonamide Antibiotics) Allergy (Unknown, Verified 05/15/24 15:24) Unknown DOCXICYCLINE Allergy (Mild, Uncoded 05/15/24 15:24) Rash Medication List - Last Reconciled 05/15/24 by Petra Benz MD blood-glucose sensor ([employer] G7 Sensor device) DIRECTED CHANGE EVERY 10 DAYS cane As directed clindamycin HCl 300 mg PO Q6H dapagliflozin propanediol (Farxiga) 5 mg PO DAILY 90 days insulin glargine (Lantus Solostar U-100 Insulin) 20 units (0.2 mL) subcut DAILY insulin syringe-needle U-100 (BD Insulin Syringe Ultra-Fine) BID Lantus admin levothyroxine 250 mcg (2 x 125 mcg) PO DAILY 30 days metformin 500 mg PO BID Mounjaro (tirzepatide) 5 mg (0.5 mL) subcut QWEEK NS pen needle, diabetic (BD Bhavani 2nd Gen Pen Needle) Once Daily As directed, 90 days simvastatin 20 mg PO QPM 90 days valsartan 40 mg PO BID 90 days HPI Comments Details: 63 year old male with a past medical history of type 2 diabetes presenting for f low up Medical history: Hypothyroid, htn, CKD Initially diagnosed with T2DM ~20 yrs ago Current regimen metformin 500 mg BID Mounjaro 5mg qwkly Farxiga 5mg daily Lantus- Lantus 20 units. was on 34 units then 24 then decreased to 20 Dexcom download show avg blood glucose 145 - 24% high, 76% target, 0% low. Highs occur 12-2am. Snacking before bed. A1C 7.1%. Patient had some higher readings until . After has been more strict again with diet and exercise Feels low 5am. Will have orange juice to correct if persistent Family history of T2DM in father, mother,aunts Has eyes checked yearly, last eye exam , has mild retinopathy. Has neuropathy, sees podiatry. Follows Ness Bergman. Recent surgery -foot wound vac following doxy reaction Has CKD, on KACEY/ARB. Is seeing nephrology Has HLD, on statin. Denies CAD. Had diabetes education ROS CONSTITUTIONAL: Denies weight loss, fever and chills. HEENT: Denies changes in vision and hearing. RESPIRATORY: Denies SOB and cough. CV: Denies palpitations and CP GI: Denies abdominal pain, nausea, vomiting and diarrhea. : Denies dysuria and urinary frequency. MSK: Denies new myalgia and joint pain. SKIN:current wound. following wound care NEUROLOGICAL: Denies headache PSYCHIATRIC: Denies recent changes in mood. PHYSICAL EXAM: GENERAL: Alert and oriented x 3. NAD EYES: EOMI. Anicteric. HENT: Moist mucous membranes. No scleral icterus. No cervical lymphadenopathy. LUNGS: Clear to auscultation bilaterally. CARDIOVASCULAR: Regular rate and rhythm. No murmur. No JVD. ABDOMEN: Soft, non-tender +bs EXTREMITIES: No edema. Non-tender. SKIN: No rashes or lesions. Warm. NEUROLOGIC: No focal neurological deficits. CN II-XII grossly intact PSYCHIATRIC: Cooperative. Appropriate mood and affect [facility] Medical History Hypertension Diabetes Hammer toe Surgical History Hx of foot surgery History of testicular surgery Hx of left knee surgery Family History Father No problems noted. Mother No problems noted. Social History Housing: House Alcohol intake: current Alcohol intake frequency: holidays/special occasions only Patient Tobacco Use Status: Never used Tobacco e-Cigarette/Vaping Use: Never Used Second Hand Smoke Exposure: No service: No Current occupational status: employed Current occupational exposures/hazards: No Cognitive needs: No Hearing needs: No Vision needs: Yes (glasses) Physical Exam Vital Signs: Last Vital Signs Pulse 74 05/15/24 15:24 BP 118/78 05/15/24 15:24 BMI result Body Mass Index 27.8 Results AMB Hemoglobin A1c AMB Hemoglobin A1c 7.1 % Last Edit by CHARLIE Huffman on 05/15/24 15:44 Results Reviewed Results Reviewed: Laboratory Last Values Glucose (Clinic) 134 mg/dL (60-115) H 05/15/24 15:33 Hgb A1c (Clinic) 7.1 % (4.0-6.0) H 05/15/24 15:35 Assessment & Plan Assessment & Plan (1) Type 2 diabetes mellitus with chronic kidney disease: Code(s): E11.22 - Type 2 diabetes mellitus with diabetic chronic kidney disease Category: Medical Qualifiers: Diabetes mellitus retirement insulin use: with long term care pharmacist use Chronic kidney disease stage: stage 3 (moderate) Chronic kidney disease stage 3 subtype: unspecified whether 3a or 3b Qualified Code(s): E11.22 - Type 2 diabetes mellitus with diabetic chronic kidney disease; N18.30 - Chronic kidney disease, stage 3 unspecified; Z79.4 - long term care pharmacist (current) use of insulin Plan: Adequately controlled in general. Some higher number in early April improving now. Can go up on Lantus to 22, 24 units Orders: Orders AMB Hemoglobin A1c 05/15/24 E11.22 - Type 2 diabetes mellitus with diabetic chronic kidney disease, N18.30 - Chronic kidney disease, stage 3 unspecified, Z79.4 - long term care pharmacist (current) use of insulin Coding Level of Care Code Est Pt Level 4 (17708) Diagnoses Type 2 diabetes mellitus with stage 3 chronic kidney disease, with long-term current use of insulin, unspecified whether stage 3a or 3b CKD E11.22; N18.30; Z79.4 Diabetes mellitus long term care pharmacist insulin use: with long term care pharmacist use Chronic kidney disease stage: stage 3 (moderate) Chronic kidney disease stage 3 subtype: unspecified whether 3a or 3b
[2024-05-15 15:24] VITALS: BP 118/78; PULSE 74; BMI 27.8
[2024-05-15 15:37] LABS: Glucose, Whole Blood 134 mg/dL (60-115)
--- OUTSIDE RECORDS SUMMARY | 2024-05-21 04:17 | XMS_ITS | Patient Health Record ---
Author Organization [facility] Address [address] [place] [address] Care Team Providers Care Manufacturing Chief Engineer Name Role Phone Mark Leavitt Primary Care Provider Malick Rubio [phone] ALLERGIES Allergen (clinical drug ingredient) Drug/Non Drug Allergy documented on EMR Reaction Allergy Type Onset Date Status Penicillin Unknown Drug Allergy Active REASON FOR REFERRAL No Information MEDICATIONS Medication SIG (Take, Route, Fr equency, Duration) Notes Start Date End Date Status glipiZIDE Active metFORMIN HCl Active Multivitamin Active hydroCHLOROthiazide Active Simvastatin Active Valsartan Active Trulicity Active Lantus Active Levothyroxine Sodium Active SOCIAL HISTORY Sex Assigned At : Social History Observation Description Sex Assigned At Unknown PROBLEMS Problem Type ICD Code Onset Dates Problem Status W/U Status Risk SNOMED Code Notes Problem Anemia, unspecified type (D64.9) Active confirmed 466793372 Problem Iron deficiency anemia, unspecified iron deficiency anemia type (D50.9) Active confirmed 87465565 Problem Iron deficiency anemia (D50.9) Active confirmed 34460370 PLAN OF TREATMENT Pending Test Test Name Order Date IRON + IBC (FE) 03/28/2016 FERRITIN 03/28/2016 CBC w DIFF 03/28/2016 Future Test Test Name Order Date UPPER GI ENDOSCOPY 12/01/2015 COLONOSCOPY 12/01/2015 Next Appt Details Provider Name:Malick Parmar , 06/10/2024 01:40:00 PM, [address], [address], [place], [address], Insurance Providers Payer Name Payer Address Payer Phone Subscriber Number Group Number Insured Name Patient Relationship to Insured Coverage Start Date Coverage End Date [facility] Insurance ([employer]) [address] [place] [id number] [phone] [id number] JAMES MORENO Self - patient is the insured MEDICAL (GENERAL) HISTORY Medical History History ICD Code IDDM Kidney stones Hypertension Asthma Diverticulitis-1989 Hyperlipidemia Hypothyroidism Denies [place],CVA,renal disease Sleep apnea--uses CPAP Negative colonoscopy at age 48 at [facility] Dr. Carrero Iron deficiency anemia--uppe r endoscopy in January of 2016 revealed only a small hiatal hernia, but was otherwise negative--duodenal and gastric biopsies were normal; a colonoscopy was normal at that time as well. Surgical History Surgery Date(Month/Year) Undescended testicles 1966 Knee surgery on the left 2015 Right index finger-skin graft 1976
== END 2024-05-15 16:04 | disposition home or self-care (01) ==
LOC: HO.ENCR 15:22
PROVIDERS: PCP Family Medicine; Visit Provider Internal Medicine
DX: E11.22 Type 2 diabetes mellitus with diabetic chronic kidney disease (principal); N18.30 Chronic kidney disease, stage 3 unspecified; Z79.4 Long term (current) use of insulin

== ENCOUNTER → 2024-05-15 15:22 | Outpatient (BNVA) | payer OTHER, SELFPAY | PROVIDERS: PCP Family Medicine; Visit Provider Internal Medicine | DX: E11.22 Type 2 diabetes mellitus with diabetic chronic kidney disease (principal); I12.9 Hypertensive chronic kidney disease with stage 1 through stage 4 chronic kidney disease, or unspecified chronic kidney disease; E03.9 Hypothyroidism, unspecified; N18.30 Chronic kidney disease, stage 3 unspecified; Z79.4 Long term (current) use of insulin | CPT/HCPCS: 82947; 83036 ==

== ENCOUNTER → 2024-06-03 23:59 | Outpatient (BNV) | payer OTHER, SELFPAY | PROVIDERS: PCP Family Medicine; Visit Provider Family Medicine | DX: E11.621 Type 2 diabetes mellitus with foot ulcer (principal); L97.524 Non-pressure chronic ulcer of other part of left foot with necrosis of bone; E11.69 Type 2 diabetes mellitus with other specified complication | CPT/HCPCS: G0180 ==

== ENCOUNTER 2024-09-03 08:52 | Outpatient (AMB) | payer OTHER, SELFPAY ==
[2024-09-03 08:53] VITALS: BP 128/78; PULSE 96; O2SAT 98; BMI 30.2
--- NOTE | 2024-09-03 08:53 | A.OFFVIS_ITS ---
Vital Signs 09/03/24 08:53 Height 6 ft Weight 222 lb 10.67 oz BMI 30.2 BP 128/78 Blood Pressure Location Rt brachial Position Sitting Pulse 96 Pulse Source Pulse Oximeter Pulse Oximetry (%) 98 Oxygen Delivery Method Room Air Intake Visit Reasons: DM Intake Note: Patient presents today for a follow-up on Type 2 Diabetes Mellitus: Last Diabetic eye exam was on: 12/27/2023 Last Podiatry exam was on: 08/06/2024[facility] Most recent HbA1c: 6.9%, 09/03/2024 Random Glucose- 141 mg/dL, Today Pad Cutter Required: No Accompanied by: Self / Same As Patient Allergies Penicillins [PENICILLINS] Allergy (Intermediate, Verified 09/03/24 08:55) RASH/HIVES Sulfa (Sulfonamide Antibiotics) Allergy (Unknown, Verified 09/03/24 08:55) Unknown DOCXICYCLINE Allergy (Mild, Uncoded 09/03/24 08:55) Rash Medication List - Last Reconciled 09/03/24 by MD lori Eid As directed dapagliflozin propanediol (Farxiga) 5 mg PO DAILY 90 days Dexcom G7 Sensor (blood-glucose sensor) EVERY 10 DAYS NS insulin glargine (Lantus Solostar U-100 Insulin) 20 units (0.2 mL) subcut DAILY insulin syringe-needle U-100 (BD Insulin Syringe Ultra-Fine) BID Lantus admin levothyroxine 250 mcg (2 x 125 mcg) PO DAILY 30 days metformin 500 mg PO BID Mounjaro (tirzepatide) 5 mg (0.5 mL) subcut QWEEK NS pen needle, diabetic (BD Bhavani 2nd Gen Pen Needle) Once Daily As directed, 90 days simvastatin 20 mg PO QPM 90 days valsartan 40 mg PO BID 90 days HPI Comments Details: 63 year old male with a past medical history of type 2 diabetes presenting for follow up Medical history: Hypothyroid, htn, CKD Initially diagnosed with T2DM ~20 yrs ago Current regimen metformin 500 mg BID Mounjaro 5mg qwkly Farxiga 5mg daily Lantus- Lantus 20 units-increased to 25 last visit. was on 34 units previously No Dexcom download today. A1C today is 6.9% from last A1C 7.1%. Some recent dietary indiscretion Once in a while feels low 5am. Will have orange juice to correct if persistent and rechecks appropriately Family history of T2DM in father, mother,aunts Has eyes checked yearly, last eye exam, has mild retinopathy. Upcoming eye exam Has neuropathy, sees podiatry-seen 08/2024. Follows Ness Bergman. Recent surgery -foot wound vac following doxy reaction. He has been cleared from the wound doctor Has CKD, on KACEY/ARB. Is seeing nephrology Has HLD, on statin. Denies CAD. Had diabetes education ROS CONSTITUTIONAL: Denies weight loss, fever and chills. HEENT: Denies changes in vision and hearing. RESPIRATORY: Denies SOB and cough. CV: Denies palpitations and CP GI: Denies abdominal pain, nausea, vomiting and diarrhea. : Denies dysuria and urinary frequency. MSK: Denies new myalgia and joint pain. SKIN: No rashes, lesions NEUROLOGICAL: Denies headache PSYCHIATRIC: Denies recent changes in mood. PHYSICAL EXAM: GENERAL: Alert and oriented x 3. NAD EYES: EOMI. Anicteric. HENT: Moist mucous membranes. No scleral icterus. No cervical lymphadenopathy. LUNGS: Clear to auscultation bilaterally. CARDIOVASCULAR: Regular rate and rhythm. No murmur. No JVD. ABDOMEN: Soft, non-tender +bs EXTREMITIES: No edema. Non-tender. SKIN: No rashes or lesions. Warm. NEUROLOGIC: No focal neurological deficits. CN II-XII grossly intact PSYCHIATRIC: Cooperative. Appropriate mood and affect [facility] Medical History Hypertension Diabetes Hammer toe Surgical History Hx of foot surgery History of testicular surgery Hx of left knee surgery Family History Father No problems noted. Mother No problems noted. Social History Housing: House Alcohol intake: current Alcohol intake frequency: holidays/special occasions only Patient Tobacco Use Status: Never used Tobacco e-Cigarette/Vaping Use: Never Used Second Hand Smoke Exposure: No service: No Current occupational status: employed Current occupational exposures/hazards: No Cognitive needs: No Hearing needs: No Vision needs: Yes (glasses) Results AMB Hemoglobin A1c AMB Hemoglobin A1c 6.9 % Last Edit by CHARLIE Huffman on 09/03/24 09:17 Assessment & Plan Assessment & Plan (1) Type 2 diabetes mellitus with chronic kidney disease: Code(s): E11.22 - Type 2 diabetes mellitus with diabetic chronic kidney disease Category: Medical Qualifiers: Diabetes mellitus prison insulin use: with prison use Chronic kidney disease stage: stage 3 (moderate) Chronic kidney disease stage 3 subtype: unspecified whether 3a or 3b Qualified Code(s): E11.22 - Type 2 diabetes mellitus with diabetic chronic kidney disease; N18.30 - Chronic kidney disease, stage 3 unspecified; Z79.4 - parts counterman (current) use of insulin Plan: Well controlled on current medications Continue current medications Improve dietary discretion. Efforts toward weight loss Continue podiatry, eye exams Return in 3 months Orders: Orders AMB Hemoglobin A1c Today E11.22 - Type 2 diabetes mellitus with diabetic chronic kidney disease, N18.30 - Chronic kidney disease, stage 3 unspecified, Z79.4 - intermediate (current) use of insulin Medications: Changed From insulin glargine (Lantus Solostar U-100 Insulin) 20 units (0.2 mL) subcut DAILY 30 mL 5RF E11.22 - Type 2 diabetes mellitus with diabetic chronic kidney disease, N18.30 - Chronic kidney disease, stage 3 unspecified, Z79.4 - parts counterman (current) use of insulin To Lantus Solostar U-100 Insulin (insulin glargine) 25 units (0.25 mL) subcut DAILY 30 mL 3RF NS E11.22 - Type 2 diabetes mellitus with diabetic chronic kidney disease, N18.30 - Chronic kidney disease, stage 3 unspecified, Z79.4 - parts counterman (current) use of insulin Coding Level of Care Code Est Pt Level 4 (96788) Diagnoses Type 2 diabetes mellitus with stage 3 chronic kidney disease, with long-term current use of insulin, unspecified whether stage 3a or 3b CKD E11.22; N18.30; Z79.4 Diabetes mellitus prison insulin use: with prison use Chronic kidney disease stage: stage 3 (moderate) Chronic kidney disease stage 3 subtype: unspecified whether 3a or 3b
[2024-09-03 09:18] LABS: Glucose, Whole Blood 141 mg/dL (60-115)
--- OUTSIDE RECORDS SUMMARY | 2024-09-03 09:39 | XMS_ITS | Encounter Summary ---
Author Organization [facility] Address [address] [address] Phone Care Team Providers Care Jockey Room Custodian Name Role Phone Mark Leavitt MD Primary Care Provider [phone] Encounter Details Date Type Department Care Team (Late st Contact Info) Description 06/29/2024 Office Communication [facility] [address] [id number] Kelin Beth ARNP [address] [phone] Social History Tobacco Use Types Packs/Day Years Used Date Smoking Tobacco: Never Smokeless Tobacco: Never Alcohol Use Standard Drinks/Week Comments Yes 1 (1 standard drink = 0.6 oz pur e alcohol) per month Sex and Gender Information Value Date Recorded Sex Assigned at Not on file Legal Sex Male 9:16 AM EDT Gender Identity Not on file Sexual Orientation Not on file documented as of this encounter Plan of Treatment Upcoming Encounters Date Type Department Care Team (Late st Contact Info) Description 10/08/2024 1:45 PM EDT Office Visit [facility] [address] [phone] Kelin Beth ARNP [address] [phone] documented as of this encounter Visit Diagnoses Not on filedocumented in this encounter Care Teams Jockey Room Custodian Relationship Specialty Start Date End Date Mark Leavitt MD [address] [facility] [address] [place] [address] PCP - General Family Medicine 03/09/21 documented as of this encounter
--- OUTSIDE RECORDS SUMMARY | 2024-09-03 09:39 | XMS_ITS ---
Author Organization [facility] Address [address] [facility] [place] [address] Care Team Providers Care Manager Of Information Name Role Phone Mark Leavitt MD Primary Care Provider Marianna Arias Unavailable [phone] Allergies Allergen (clinical drug ingredient) Drug/Non Drug Allergy documented on EMR Reaction Allergy Type Onset Date Status doxycycline Doxycycline Hyclate hives Drug Allergy Active erythromycin Erythromycin Unknown Drug Allergy A ctive Penicillin Unknown Drug Allergy Active REASON FOR VISIT At Risk Footcare Medications Medication SIG (Take, Route, Frequency, Duration) Notes Start Date End Date Status Levaquin 250 MG 2 tablets Orally Once a day for 5 days 10/24/2021 Not-Taking Ciclopirox Olamine 0.77 % 1 application Externally Twice a day for 30 days 01/05/2022 Not-Taking glipiZIDE 10 MG Orally Not- Taking Trulicity Not-Taking Bactrim DS 800-160 MG 1 tablet Orally every 12 hrs for 14 days 10/19/2021 Not-Taking Doxycycline Monohydrate 100 MG 1 capsule Orally every 12 hrs for 14 days 10/19/2021 Not-Taking Bactrim DS 800-160 MG 1 tablet Orally every 12 hrs for 10 day(s) 01/18/2023 Not-Taking Motrin PRN Not-Taking ZyrTEC Allergy Not-T aking Bactrim DS 800-160 MG 1 tablet Orally Twice a day 08/22/2018 Not-Taking Silvadene 1 % 1 application Externally Once a day with DSD for 30 days Not-Taking Bactrim DS 800-160 MG 1 tablet Orally Twice a day for 10 day(s) 03/22/2023 Not-Taking levoFLOXacin 500 MG 2 tablets Orally Once a day for 10 days 03/26/2023 Not-Taking levoFLOXacin 500 MG 2 tablets Orally Once a day for 10 days 04/05/2023 Not-Taking hydroCHLOROthiazide 25 MG Orally Not-Taking Flexeril Not-Taking Meloxicam 15 MG 1 tablet Orally Once a day Not-Taking Linezolid 600 MG TAKE 1 TABLET BY MOUTH TWO TIMES A DAY FOR 10 DAYS Oral for 10 Days Not-Taking Cefpodoxime Proxetil 200 MG TAKE 1 TABLET BY MOUTH EVERY 12 HOURS FOR 7 DAYS Oral for 7 Days Not-Taking Ibuprofen 800 MG 1 tablet every Orally every 8 hrs for 14 10/01/2023 Not-Taking Insulin Lantus Not-Taking Gabapentin 300 MG 1 capsule Orally at bedtime for 15 10/01/2023 Not-Taking levoFLOXacin 750 MG 1 tablet Orally Once a day for 10 day(s) 10/25/2023 Not-Taking Nystatin 443518 UNIT/GM 1 application Externally Twice a day for 30 days 11/09/2023 Not-Taking Cephalexin 500 MG 1 capsule Orally every 12 hrs for 10 day(s) 11/09/2023 Not-Taking hydroCHLOROthiazide 12.5 MG 1 tablet in the morning Orally Once a day Not-Taking Clindamycin HCl 300 MG Oral for 14 Days Not-Taking Walker as directed 10/01/2023 Not-Chuck ing Pneumatic Compression Boot 30mm Hg as directed over swollen feet and legs as directed for . 01/21/2024 Active Mounjaro 5 MG/0.5ML INJECT 5 MG SUBCUTANEOUS ONCE PER WEEK Subcutaneous for 28 Days Active Acetaminophen Extra Strength 500 MG 2 tablet as needed Orally every 6 hrs for 30 days 10/01/2023 Active metFORMIN HCl 500 MG as directed Orally twice a day Active Simvastatin Active Valsartan 120 1 tablet Orally Once a day Active Lantus 100 UNIT/ML as directed Subcutaneous once a day insulin 20 units Active diovan Not-Taking Flonase Not-Taking Farxiga 10 MG 1 tablet Orally Once a day Active Extra Depth Orthopedic Shoes (1 Pair) with Customized Heat Molded Multidensity Innersoles (3 Pair) as directed Dx: NIDDM/Polyneuropat hy (E11.42), Hammertoe Foot Deformity (M20.41,M20.42), Preulcerative Skin Lesion(s) (L85.1 08/22/2018 Not-Taking Levothyroxine Sodium Active Jardiance 10 MG Orally Not- Taking Osteo Bi-Flex Adv Double St Not-Taking Actos Not-Taking Keflex 500 MG 1 capsule Orally every 12 hrs for 10 day(s) 08/21/2016 Not-Taking Cipro 500 MG 1 tablet Orally every 12 hrs for 10 day(s) 06/23/2019 Not-Taking Extra Depth Orthopedic Shoes (1 Pair) with Customized Heat Molded Multidensity Innersoles (3 Pair) as directed Dx: NIDDM/Polyneuropat hy (E11.42), Hammertoe Foot Deformity (M20.41,M20.42), Preulcerative Skin Lesion(s) (L85.1 11/28/2018 Not-Taking Extra Depth Orthopedic Shoes (1 Pair) with Customized Heat Molded Multidensity Innersoles (3 Pair) as directed Dx: NIDDM/Polyneuropat hy (E11.42), Hammertoe Foot Deformity (M20.41,M20.42), Preulcerative Skin Lesion(s) (L85.1 Not-Taking Bactrim DS 800-160 MG 1 tablet Orally Twice a day for 10 day(s) 02/27/2020 Not-Taking Valsartan 80 MG Orally Not- Taking Doxycycline Hyclate 100 MG 1 tablet Orally Once a day for 10 day(s) 02/24/2020 Not-Taking Extra Depth Orthopedic Shoes (1 Pair) with Customized Heat Molded Multidensity Innersoles (3 Pair) as directed Dx: NIDDM/Polyneuropat hy (E11.42), Hammertoe Foot Deformity (M20.41,M20.42), Preulcerative Skin Lesion(s) (L85.1 08/31/2016 Not-Taking Bactrim DS 800-160 MG 1 tablet Orally Twice a day for 10 day(s) Not-Taking Silvadene 1 % 1 application to affected area Externally Once a day for 30 days PRN 08/22/2018 Not-Taking Extra-Depth Diabetic Shoes with 3 Pair Custom heat-molded multi-density innersoles Not-Taking aspirin Not-Taking Ciclopirox Olamine 0.77% external Apply to effected areas twice a day for 30 days PRN 01/23/2014 Not-Taking Social History Tobacco Use: Social History Observation Description Date Details (start date - stop date) Never Smoker NA - NA Tobacco use other than smoking: Question Answer Notes Are you an other tobacco user? No Tobacco Control (Standard) Question Answer Notes Tobacco use: Nonsmoker Additional Findings: Tobacco non-user Current no nsmoker AUDIT-C (Standard) Question Answer Notes Did you have a drink contain ing alcohol in the past year? Yes How often did you have a dri nk containing alcohol in the past year? 2 to 4 times a month (2 points) How many drinks did you have on a typical day when you were drinking in the past year? 1 or 2 drinks (0 point) How often did you have six o r more drinks on one occasion in the past year? Less than monthly (1 point) Points 3 Interpretation Negative Vital Signs Blood pressure systolic 122 mm Hg 08/06/19 25 Blood pressure diastolic 68 mm Hg 025 Height 6ft in 08/06/2024 Weight 210 lbs 08/06/2024 BMI 28.48 kg/m2 08/06/2024 Procedures Procedure Date Ordered Date Performed Result Body Sit e 39024-ATBSBHG NAIL, 6 OR MORE 08/06/2024 N/A 78157-VLSE SKIN LESIONS, OVER 4 08/06/2024 N/A Encounters Encounter Location Date Provider Diagnosis [facility] [address] 08/06/2024 Marianna Bergman Type 2 diabetes gaudencio itus with diabetic polyneuropathy E11.42 and Tinea unguium B35.1 Assessments Encounter Date Diagnosis (ICD Code) Assessment Notes Treatment Notes Treatment Clinical Notes Section Notes 08/06/2024 Type 2 diabetes mellitus with diabetic polyneuropathy (ICD-10 - E11.42) 08/06/2024 Tinea unguium (ICD-10 - B35.1) Plan Of Treatment Pending Test Test Name Order Date 28410-DNMRVVT NAIL, 6 OR MORE 08/06/2024 70683-PTGC SKIN LESIONS, OVER 4 08/06/19 25 Next Appt Details Follow Up: 3 Months, Reason: Provider Name:Marianna Bergman , 11/17/2024 08:30:00 AM, [address] [place], [address], Procedure Notes * Category Sub-Category Detail Notes Debride Nail 6-10 Nail debridement Due to the cl inical pathology outlined in the exam findings, performance of this nail treatment is medically necessary as its management by an unskilled/untrained nonprofessional would put this patients foot and overall health at risk. Therefore, debridement to affected nail(s), as described in exam ( TA, T1, T2, T3, T4, T5, T6, T7, T8, T9,), was performed exclusively by the physician of record to reduce/remove overall nail length, girth, thickness, subungual debris, and necrotic tissue, by manual and/or electrical means through the use of a nail nipper and/or dremel-type od grinder operator, to a more viable healthy nail plate or bed tissue 6-10 nails in total. Silver nitrate was used for any petechial bleeding as necessary. Definitive antifungal treatment options, both pharmaceutical and surgical, have been reviewed and discussed with the patient. The patient solely prefers the use of intermittent/as needed professional debridement services for their nail condition and understands the need for additional periodic treatments to maintain effectiveness in symptomatic relief - 59560 Keratoma Treatment Parring or Cutting o f Benign Hyperkeratotic Lesion(s) , (-57) More than 4 Lesions - Due to the at risk nature of the patients medical condition as documented in the exam findings, performance of this keratoderma treatment is medically necessary as its management by an unskilled/untrained nonprofessional would put this patients foot and overall health at risk. Therefore, the benign hyperkeratotic lesions, ( 5 ) in total, locations as stated and described in the exam (, SUB MTH (s), 1, B/L, 5, Plantar Heel(s), B/L ), were pared, and/or cut utilizing a sterile 15 blade, tissue nippers, and/or power dremel instrumentation by the physician of record - 87992 Progress Notes * Junaid MORENO PDOB: [birth year] (63 yo M)Acc No.[id number]:08/06/2024 Progress Note Patient:?Junaid MORENO P Provider:?Marianna Bergman DPM :1960???Age:63 Y???Sex:Male Kirt e:08/06/2024 Address:[address], [place], [id number] Pcp:Mark Leavitt MD Subjective: * Chief Complaints: * ???At Risk Footcare * HPI: ???At Risk footcare:?Pt States Last PCP Visit:?Date?06/12/2023 ???Skin problems:?Nature:?Open sore.?Location:?Top, 1st, Left.?Ulcerations left foot have healed-pt final visit for wound care on Sunday for discharge. * ROS:?General/Constitutional:?Nausea?denies.?Vomiting?denies.?Hunger Thirst?denies.?Loss appetite?denies.?Chills?denies.?Fatigue?denies.?Fever?denies.?Night Sweats?denies.?Unexplained weight loss?denies.?Unexplained weight gain?denies.?HEENTM:?Dentures?denies.?Dizziness?denies.?Glasses/contacts?admits.?Retinopathy?den ies.?Blurred/double vision?denies.?TMJ?denies.?Discharge/drainage?denies.?Implants?denies.?Sore throat?denies.?Dental implants?denies.?Hard of hearing ?denies.?Difficulty chewing/swallowing/speaking?denies.?Nose bleeds?denies.?Sore mouth?denies.?Respiratory:?On O xygen?denies.?Pneumonia/pleurisy?denies.?Bronchitis?denies.?Emphysema?denies.?Co ughing?denies.?Cough blood?denies.?Shortness of breath?denies.?Wheezing?denies.?Cardiovascular:?Pacemaker?denies.?MVP?denies.?WPW?denies.?CHF?denies.?Heart attack?denies.?Septal defect?denies.?Rapid beat?denies.?Chest pain ?denies.?Atrial Fib.?denies.?Murmur/Palpitations?denies.?Gastrointestinal:?Hemorrhoids?denies.?Stomach/Abdominal pain?denies.?Dark blood stool?denies.?Irritable bowel ?denies.?Constipation?denies.?Diarrhea?denies.?Hematology:?Swelling?denies.?Clots?denies.?Varicose Veins?denies.?Bruising?denies.?Bleeding problem?denies.?Genitourinary:?Blood urine?denies.?Frequent/Painfu/urination/bladder control?denies.?Kidney stones?denies.?Infection (UTI)?denies.?Nephropathy?denies.?sex trans dis (STD)?denies.?Prostate?denies.?Musculoskeletal:?Hammertoes?denies.?Bunions?admits.?Back Pain?denies.?Muscle Cramps/ Resting?denies.?Muscle cramps / walking?denies.?Generalized aches and pains?denies.?Weakness?denies.?Integ.:?Ramírez?denies.?Scars?denies.?Corns/calluses?, admits.?Ingrown nails?denies.?Painful nails?denies.?Open Sores?denies.?Rashes?denies.?Neurologic:?Difficulty sleeping?denies.?Brain disorder?denies.?Numbness?admits.?Balance t rouble?admits.?Confusion?denies.?Fainting/blackouts?denies.?Tingling?admits.?Raj mors?denies.? * Medical History:? * Surgical History:?testicular 1967knee, meniscus 08/2015B/L Eye Surgery - narrowing of the eye angle - Lasar surgery 12/01,01/31Mod Ying Left Foot, Rk + [place], Hammertoe Repair w/K-Wire Fixation 10/17/2023 * [place]Major Diagno stic [place] [place] - [facility] foot 11/01[facility] [place] 12/02 * Family History:?Mother: dece ased, arthritis, hypertension, stroke, foot problems.?Father: , diabetes, foot problems, high blood pressure, poor circulation.?Spouse: alive.? * Social History:?Tobacco Use:?Tobacco use other than smoking?Are you an other tobacco user??No ?Tobacco Control (Standard)?Tobacco use:?Nonsmoker ?Additional Findings: Tobacco non-user?Current nonsmoker ???Drugs/Alcohol:?Drugs?Have you used drugs other than those for medical reasons in the past 12 months??No ???Miscellaneous:?Caffeine: yes, frequency:, 1-2 cups per day. ?Children: yes, 3. ?Exercise: no, walking. ?Marital status: . 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 ???Drug/Alcohol:?AUDIT-C (Standard)?Did you have a drink containing alcohol in the past year??Yes ?How often did you have a drink containing alcohol in the past year??2 to 4 times a month (2 points) ?How many drinks did you have on a typical day when you were drinking in the past year??1 or 2 drinks (0 point) ?How often did you have six or more drinks on one occasion in the past year??Less than monthly (1 point) ?Points?3 ?Interpretation?Negative * Medications:?TakingFarxiga 1 0 MG Tablet 1 tablet Orally Once a day Levothyroxine Sodium metFORMIN HCl 500 MG Tablet as directed Orally twice a day Simvastatin Valsartan 120 mg 1 tablet Orally Once a day Lantus 100 UNIT/ML Solution as directed Subcutaneous once a day , Notes to Pharmacist: insulin 20 unitsAcetaminophen Extra Strength 500 MG Tablet 2 tablet as needed Orally every 6 hrs Pneumatic Compression Boot 30mm Hg wear as directed over swollen feet and legs as directed Mounjaro 5 MG/0.5ML Solution Pen-injector INJECT 5 MG SUBCUTANEOUS ONCE PER WEEK Subcutaneous Taking Farxiga 10 MG Tablet 1 tablet Orally Once a day Taking Levothyroxine Sodium Taking metFORMIN HCl 500 MG Tablet as directed Orally twice a day Taking Simvastatin Taking Valsartan 120 mg 1 tablet Orally Once a day Taking Lantus 100 UNIT/ML Solution as directed Subcutaneous once a day , Notes to Pharmacist: insulin 20 unitsTaking Acetaminophen Extra Strength 500 MG Tablet 2 tablet as needed Orally every 6 hrs Taking Pneumatic Compression Boot 30mm Hg wear as directed over swollen feet and legs as directed Taking Mounjaro 5 MG/0.5ML Solution Pen-injector INJECT 5 MG SUBCUTANEOUS ONCE PER WEEK Subcutaneous Not-Taking/PRNhydroCHLOROthiazide 12.5 MG Tablet 1 tablet in the morning Orally Once a day Clindamycin HCl 300 MG Capsule Oral Walker as directed Insulin , Notes to Pharmacist: LantusGabapentin 300 MG Capsule 1 capsule Orally at bedtime levoFLOXacin 750 MG Tablet 1 tablet Orally Once a day Nystatin 819912 UNIT/GM Cream 1 application Externally Twice a day Cephalexin 500 MG Capsule 1 capsule Orally every 12 hrs Linezolid 600 MG Tablet TAKE 1 TABLET BY MOUTH TWO TIMES A DAY FOR 10 DAYS Oral Cefpodoxime Proxetil 200 MG Tablet TAKE 1 TABLET BY MOUTH EVERY 12 HOURS FOR 7 DAYS Oral Ibuprofen 800 MG Tablet 1 tablet every Orally every 8 hrs Flexeril Meloxicam 15 MG Tablet 1 tablet Orally Once a day Silvadene 1 % Cream 1 application Externally Once a day with DSD Bactrim DS 800-160 MG Tablet 1 tablet Orally Twice a day levoFLOXacin 500 MG Tablet 2 tablets Orally Once a day levoFLOXacin 500 MG Tablet 2 tablets Orally Once a day hydroCHLOROthiazide 25 MG Tablet Orally Bactrim DS 800-160 MG Tablet 1 tablet Orally every 12 hrs Dwain , Notes to Pharmacist: PRNZyrTEC Allergy Bactrim DS 800-160 MG Tablet 1 tablet Orally Twice a day Doxycycline Monohydrate 100 MG Capsule 1 capsule Orally every 12 hrs Levaquin 250 MG Tablet 2 tablets Orally Once a day Ciclopirox Olamine 0.77 % Cream 1 application Externally Twice a day glipiZIDE 10 MG Tablet Orally Trulicity Bactrim DS 800-160 MG Tablet 1 tablet Orally every 12 hrs Ciclopirox Olamine 0.77% Cream external Apply to effected areas twice a day , Notes to Pharmacist: PRNBactrim DS 800-160 MG Tablet 1 tablet Orally Twice a day Silvadene 1 % Cream 1 application to affected area Externally Once a day , Notes to Pharmacist: PRNExtra-Depth Diabetic Shoes with 3 Pair Custom heat-molded multi-density innersoles aspirin Extra Depth Orthopedic Shoes (1 Pair) with Customized Heat Molded Multidensity Innersoles (3 Pair) as directed Dx: NIDDM/Polyneuropathy (E11.42), Hammertoe Foot Deformity (M20.41,M20.42), Preulcerative Skin Lesion(s) (L85.1 Extra Depth Orthopedic Shoes (1 Pair) with Customized Heat Molded Multidensity Innersoles (3 Pair) as directed Dx: NIDDM/Polyneuropathy (E11.42), Hammertoe Foot Deformity (M20.41,M20.42), Preulcerative Skin Lesion(s) (L85.1 Extra Depth Orthopedic Shoes (1 Pair) with Customized Heat Molded Multidensity Innersoles (3 Pair) as directed Dx: NIDDM/Polyneuropathy (E11.42), Hammertoe Foot Deformity (M20.41,M20.42), Preulcerative Skin Lesion(s) (L85.1 Bactrim DS 800-160 MG Tablet 1 tablet Orally Twice a day Doxycycline Hyclate 100 MG Tablet 1 tablet Orally Once a day Valsartan 80 MG Tablet Orally Cipro 500 MG Tablet 1 tablet Orally every 12 hrs Jardiance 10 MG Tablet Orally Osteo Bi-Flex Adv Double St Actos Keflex 500 MG Capsule 1 capsule Orally every 12 hrs diovan Flonase Extra Depth Orthopedic Shoes (1 Pair) with Customized Heat Molded Multidensity Innersoles (3 Pair) as directed Dx: NIDDM/Polyneuropathy (E11.42), Hammertoe Foot Deformity (M20.41,M20.42), Preulcerative Skin Lesion(s) (L85.1 Medication List reviewed and reconciled with the patientNot-Taking/PRN hydroCHLOROthiazide 12.5 MG Tablet 1 tablet in the morning Orally Once a day Not-Taking/PRN Clindamycin HCl 300 MG Capsule Oral Not- Taking/PRN Walker as directed Not-Taking/PRN Insulin , Notes to Pharmacist: LantusNot- Taking/PRN Gabapentin 300 MG Capsule 1 capsule Orally at bedtime Not-Taking/PRN levoFLOXacin 750 MG Tablet 1 tablet Orally Once a day Not-Taking/PRN Nystatin 831281 UNIT/GM Cream 1 application Externally Twice a day Not-Taking/PRN Cephalexin 500 MG Capsule 1 capsule Orally every 12 hrs Not-Taking/PRN Linezolid 600 MG Tablet TAKE 1 TABLET BY MOUTH TWO TIMES A DAY FOR 10 DAYS Oral Not-Taking/PRN Cefpodoxime Proxetil 200 MG Tablet TAKE 1 TABLET BY MOUTH EVERY 12 HOURS FOR 7 DAYS Oral Not-Taking/PRN Ibuprofen 800 MG Tablet 1 tablet every Orally every 8 hrs Not-Taking/PRN Flexeril Not-Taking/PRN Meloxicam 15 MG Tablet 1 tablet Orally Once a day Not-Taking/PRN Silvadene 1 % Cream 1 application Externally Once a day with DSD Not-Taking/PRN Bactrim DS 800-160 MG Tablet 1 tablet Orally Twice a day Not-Taking/PRN levoFLOXacin 500 MG Tablet 2 tablets Orally Once a day Not-Taking/PRN levoFLOXacin 500 MG Tablet 2 tablets Orally Once a day Not-Taking/PRN hydroCHLOROthiazide 25 MG Tablet Orally Not-Taking/PRN Bactrim DS 800-160 MG Tablet 1 tablet Orally every 12 hrs Not-Taking/PRN Motrin , Notes to Pharmacist: PRNNot-Taking/PRN ZyrTEC Allergy Not-Taking/PRN Bactrim DS 800-160 MG Tablet 1 tablet Orally Twice a day Not-Taking/PRN Doxycycline Monohydrate 100 MG Capsule 1 capsule Orally every 12 hrs Not-Taking/PRN Levaquin 250 MG Tablet 2 tablets Orally Once a day Not-Taking/PRN Ciclopirox Olamine 0.77 % Cream 1 application Externally Twice a day Not-Taking/PRN glipiZIDE 10 MG Tablet Orally Not- Taking/PRN Trulicity Not-Taking/PRN Bactrim DS 800-160 MG Tablet 1 tablet Orally every 12 hrs Not-Taking/PRN Ciclopirox Olamine 0.77% Cream external Apply to effected areas twice a day , Notes to Pharmacist: PRNNot-Taking/PRN Bactrim DS 800-160 MG Tablet 1 tablet Orally Twice a day Not-Taking/PRN Silvadene 1 % Cream 1 application to affected area Externally Once a day , Notes to Pharmacist: PRNNot-Taking/PRN Extra-Depth Diabetic Shoes with 3 Pair Custom heat-molded multi-density innersoles Not-Taking/PRN aspirin Not-Taking/PRN Extra Depth Orthopedic Shoes (1 Pair) with Customized Heat Molded Multidensity Innersoles (3 Pair) as directed Dx: NIDDM/Polyneuropathy (E11.42), Hammertoe Foot Deformity (M20.41,M20.42), Preulcerative Skin Lesion(s) (L85.1 Not-Taking/PRN Extra Depth Orthopedic Shoes (1 Pair) with Customized Heat Molded Multidensity Innersoles (3 Pair) as directed Dx: NIDDM/Polyneuropathy (E11.42), Hammertoe Foot Deformity (M20.41,M20.42), Preulcerative Skin Lesion(s) (L85.1 Not-Taking/PRN Extra Depth Orthopedic Shoes (1 Pair) with Customized Heat Molded Multidensity Innersoles (3 Pair) as directed Dx: NIDDM/Polyneuropathy (E11.42), Hammertoe Foot Deformity (M20.41,M20.42), Preulcerative Skin Lesion(s) (L85.1 Not-Taking/PRN Bactrim DS 800-160 MG Tablet 1 tablet Orally Twice a day Not-Taking/PRN Doxycycline Hyclate 100 MG Tablet 1 tablet Orally Once a day Not-Taking/PRN Valsartan 80 MG Tablet Orally Not-Taking/PRN Cipro 500 MG Tablet 1 tablet Orally every 12 hrs Not-Taking/PRN Jardiance 10 MG Tablet Orally Not-Taking/PRN Osteo Bi-Flex Adv Double St Not-Taking/PRN Actos Not-Taking/PRN Keflex 500 MG Capsule 1 capsule Orally every 12 hrs Not-Taking/PRN diovan Not- Taking/PRN Flonase Not-Taking/PRN Extra Depth Orthopedic Shoes (1 Pair) with Customized Heat Molded Multidensity Innersoles (3 Pair) as directed Dx: NIDDM/Polyneuropathy (E11.42), Hammertoe Foot Deformity (M20.41,M20.42), Preulcerative Skin Lesion(s) (L85.1 Medication List reviewed and reconciled with the patient * Allergies:?ErythromycinDoxyc ycline Hyclate: hivesPenicillinyes[Allergies Verified] Objective: * Vitals:?Ht: 6ft, Wt:210, BMI :28.48, Shoe size: 11.5, BP:122/68mm Hg, BS: 148, Ht-cm: 182.88 cm, Wt-k.26 kg. * ???Past Orders: ???Lab:HEMOGLOBIN A1C (GLYCO HEMOGLOBIN) (Order Date - 06/19/2024) (Collection Date & Time - 06/19/2024 09:07 AM) ? Value Reference Range ?HEMOGLOBIN A1C % (HH) 7.0 * Examination: ???Ophthalmology Referral: ?DIABETES EYE EXAM?Procedure Performed:?Yes ?Date of Exam Performed?06/23/2024 ?Diabetic Retinopathy Screening:?Yes ?Findings of Diabetic Eye Exam:?no retinopathy?General Examination: ?GENERAL APPEARANCE:?Reveals a pleasant, alert, well nourished, well- developed, well hydrated individual, who demonstrates proper attention to hygiene/body habitus, and is in no acute distress, Pt serves as own historian for office visit today.?ORIENTED:?person, place, and time.?Neurological: ?SENSORY:? Neurological exam demonstrates, reduced light touch sensation, reduced sharp/dull pin prick discrimination , B/L, 5.07 monofilament test performed at plantar aspects of 5 varied sites per foot shows sensation, reduced , B/L.?Nails: ?NAILS are:?Elongated, overgrown, dystrophic, lytic, greater than 3mm thick, discolored and friable with crumbly malodorous subungual debris, T1, T2, T3, T4, T5, T6, T7, T8, T9, There is evidence of no pain on palpation, and an area of subungual HEMORRAGHIC fluid with a pre-operative size measuring approximately ( 1-2 ) mm square TA.?Dermatologic: ?SKIN FINDINGS:?Skin exam reveals Keratotic lesion(s) located at, SUB MTH (s), 1, B/L, 5, Plantar Heel(s), B/L.?Vascular: ?DP PULSES (B):?, 2/4, B/L.?PT PULSES (B):?2/4, B/L.?CAPILLARY FILL TIME:?immediate, all digits, B/L.?TROPHIC CONDITION-TEXTURE/ELASTICITY/TURGOR/HAIR GROWTH (B):?normal, B/L.?TEMPERTURE GRADIENT (C):?normal, warm to cool, proximal to distal, B/L, B/L.?PIGMENTATION:?normal, B/L.?EDEMA (C):?1/4, Leg(s), Ankle(s), Foot, B/L.?Orthopedic: ?MUSCLE STRENGTH:?5/5 all groups in a symmetrical fashion, B/L.? Assessment: * Assessment: 1.?Type 2 diabetes mellitus with diabetic polyneuropathy - E11.42 (Primary)???2.?Tinea unguium - B35.1??? Plan: * Treatment: 2.?Tinea unguium?Procedure: [id number]-[id number] NAIL, 6 OR MORE * Procedures:?Debride Nail 6-10:?Nail debridement?Due to the clinical pathology outlined in the exam findings, performance of this nail treatment is medically necessary as its management by an unskilled/untrained nonprofessional would put this patients foot and overall health at risk. Therefore, debridement to affected nail(s), as described in exam ( TA, T1, T2, T3, T4, T5, T6, T7, T8, T9,), was performed exclusively by the physician of record to reduce/remove overall nail length, girth, thickness, subungual debris, and necrotic tissue, by manual and/or electrical means through the use of a nail nipper and/or dremel-type od grinder operator, to a more viable healthy nail plate or bed tissue 6- 10 nails in total. Silver nitrate was used for any petechial bleeding as necessary. Definitive antifungal treatment options, both pharmaceutical and surgical, have been reviewed and discussed with the patient. The patient solely prefers the use of intermittent/as needed professional debridement services for their nail condition and understands the need for additional periodic treatments to maintain effectiveness in symptomatic relief - 34031.?Keratoma Treatment:?Parring or Cutting of Benign Hyperkeratotic Lesion(s)?, (-57) More than 4 Lesions - Due to the at risk nature of the patients medical condition as documented in the exam findings, performance of this keratoderma treatment is medically necessary as its management by an unskilled/untrained nonprofessional would put this patients foot and overall health at risk. Therefore, the benign hyperkeratotic lesions, ( 5 ) in total, locations as stated and described in the exam (, SUB MTH (s), 1, B/L, 5, Plantar Heel(s), B/L ), were pared, and/or cut utilizing a sterile 15 blade, tissue nippers, and/or power dremel instrumentation by the physician of record - 86064.? * Procedure Codes:?15731 DEBRI DE NAIL, 6 OR MORE, Modifiers: XS 92058 TRIM SKIN LESIONS, OVER 4, Modifiers: XS * Preventive Medicine:? ??Screening/Special Tests:?Fall Risk?Screening:?No falls in the past year ?FALLS: Screening for Future Fall Risk?Have you had any falls with injury in the past year??No * Follow Up:?3 Months * Images: * Sign off status: Completed true * Provider:Ajay Bergman DPM Date:?2024 Generated for Bennyi aníbal/Estela/eTransmitting on:?09/03/2024 09:38 AM EDT History and Physical Notes * HPI (History of Present Illness) Category Sub-Category Detail Notes Category Not es Skin problems Nature: Open sore Ulcerations le ft foot have healed-pt final visit for wound care on Sunday for discharge Location: Top, 1st, Left At Risk footcare Pt States Last PCP Visit: Date: Examination Category Sub-Category Detail Notes Category Not es Neurological SENSORY: Neurological exa m demonstrates, reduced light touch sensation, reduced sharp/dull pin prick discrimination , B/L, 5.07 monofilament test performed at plantar aspects of 5 varied sites per foot shows sensation, reduced , B/L Dermatologic SKIN FINDINGS: Skin exam reveal s Keratotic lesion(s) located at, SUB MTH (s), 1, B/L, 5, Plantar Heel(s), B/L Orthopedic MUSCLE STRENGTH: 5/5 all groups in a symmetrical fashion, B/L General Examination GENERAL APPEARANCE: Reveals a pleasant, alert, well nourished, well-developed, well hydrated individual, who demonstrates proper attention to hygiene/body habitus, and is in no acute distress, Pt serves as own historian for office visit today ORIENTED: person, place, and t shandra Ophthalmology Referral DIABETES EYE EXAM Procedure Perform ed:: Yes ?Date of Exam Performed: 06/23/2024 Diabetic Retinopathy Screening:: Yes Findings of Diabetic Eye Exam:: no retin opathy Vascular DP PULSES (B): , 2/4, B/L PT PULSES (B): 2/4, B/L CAPILLARY FILL TIME: immediate, all digi ts, B/L TEMPERTURE GRADIENT (C): normal, warm to cool, proximal to distal, B/L, B/L TROPHIC CONDITION-TEXTURE/ELASTICITY/TURGOR/HAIR GROWTH (B): normal, B/L EDEMA (C): 1/4, Leg(s), Ankle(s ), Foot, B/L PIGMENTATION: normal, B/L Nails NAILS are: Elongated, overg rown, dystrophic, lytic, greater than 3mm thick, discolored and friable with crumbly malodorous subungual debris, T1, T2, T3, T4, T5, T6, T7, T8, T9, There is evidence of no pain on palpation, and an area of subungual HEMORRAGHIC fluid with a pre-operative size measuring approximately ( 1-2 ) mm square TA
--- OUTSIDE RECORDS SUMMARY | 2024-09-03 09:39 | XMS_ITS ---
Author Organization [facility] Address [address] [facility] [place] [address] Care Team Providers Care Pipe Tester Name Role Phone Mark Leavitt Primary Care Provider Unavailab Malick [place] [phone] REASON FOR VISIT Patient presents today for a discuss colonoscopy Encounters Encounter Location Date Provider Diagnosis [facility] [address] [place] [address] 06/10/2024 Malick Parmar Plan Of Treatment No Information Progress Notes * JAMES MORENO PDOB: [birth year] (63 yo M)Acc No.[id number]:06/10/2024 Progress Notes Patient:?JAMES MORENO Provider:?Malick Parmar MD :1960???Age:63 Y???Sex:Male Kirt e:06/10/2024 Address[address] [facility] Pcp:Mark Leavitt Subjective: * Chief Complaints: * ???1. Patient presents today for a discuss colonoscopy. * Medical History:? Objective: * Vitals:? Assessment: Plan: * Treatment: * * The named appointment provid er may or may not be the originator of this progress note, and it is not deemed complete until electronically signed by the appointment provider. Sign off status: Pending * Provider:?Malick Parmar MD Date:? 024 Generated for Bennyi ng/Faspg/eTransmitting on:?09/03/2024 09:39 AM EDT
--- OUTSIDE RECORDS SUMMARY | 2024-09-03 09:39 | XMS_ITS ---
Author Organization [facility] Address [address] [place] [address] Care Team Providers Care Inward Toll Operator Name Role Phone Mark Leavitt Primary Care Provider Unavailab Malick [place] [phone] Encounters Encounter Location Date Provider Diagnosis [facility] [address] [place] [address] 06/10/2024 Malick Parmar Plan Of Treatment No Information Progress Notes * JAMES MORENO PDOB: [birth year] (63 yo M)Acc No.[id number]:06/10/2024 Patient:?JAMES MORENO :1960???Age:63 Y???Sex:Male Address:[address], [place] [address] * true * Date:? Generated for Doyle spangler/Estela/eTransmitting on:?09/03/2024 09:39 AM EDT
--- OUTSIDE RECORDS SUMMARY | 2024-09-03 09:39 | XMS_ITS | Clinical Summary ---
Author Organization [facility] Address [address] [place] [address] Phone Care Team Providers Care Promotional Advertising Assistant Name Role Phone Mark Leavitt MD Primary Care Provider [phone] Allergies Active Allergy Reactions Criticality Noted Date Comments Doxycycline Other (see comments) 08/15/2021 Erythromycin Other (see comments) 08/15/2021 Penicillins Hives,Rash Medium 03/24/2021 Sulfa Antibiotics 08/22/2021 Sulfaphenazole 03/24/2021 Yeast-Derived Drug Products 02/16/2010 Other reaction(s): OTHER Medications insulin glargine (LANTUS) 100 UNIT/ML injection Inject 54 Units under the skin 1 (one) time each day Active levothyroxine (SYNTHROID, LEVOTHROID) 300 MCG tablet Take 300 mcg by mouth 1 (one) time each day 02/27/20 21 Active metFORMIN (GLUCOPHAGE) 500 MG tablet 03/22/20 21 Active simvastatin (ZOCOR) 20 MG tablet Take 20 mg by mouth at bed time 03/02/20 21 Active valsartan (DIOVAN) 40 MG tablet Take 40 mg by mouth twice a day 03/22/20 21 Active Multiple Vitamins-Mineral s (ONE-A-DAY 50 PLUS PO) Take 1 tablet by mouth 1 (one) time each day Active acetaminophen (TYLENOL) 325 MG tablet Take by mouth every 6 (six) hours if needed for mild pain Active Glucosamine-Ahmet dgyon-Gliht-Zr (GLUCOSAMINE CHONDROIT,BIOFLA V, PO) Take 1 tablet by mouth 1 (one) time each day Active Dapagliflozin Propanediol (Farxiga) 10 MG tablet 1 (one) time each day Active silver sulfADIAZINE (Silvadene) 1 % cream 1 (one) time each day 08/23/19 19 Active Mounjaro 5 MG/0.5ML solution pen-injector INJECT 5 MG SUBCUTANEOUSLY ONCE WEEKLY 02/15/20 23 Active ferrous sulfate (Fe Tabs) 325 (65 Fe) MG EC tabletIndication s:Other iron deficiency anemia Take 1 tablet (325 mg total) by mouth 1 (one) time each day with breakfast Do not crush, chew, or split. 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 06/13/2022 Diabetes mellitus 10/18/2021 Stage 3b chronic kidney disease 03/25/2021 Hypertension 03/25/2021 Resolved Problems Problem Noted Date Diagnosed Date Resolved Date Diabetes mellitus without me ntion of complication, type II or unspecified type, uncontrolled 03/24/2021 03/24/2021 Acute kidney failure 03/24/2021 021 Encounters Date Type Department Care Team Description 07/12/2024 Orders Only [facility] [address] [address] Kelin Beth ARNP Other iron deficiency anemia 06/29/2024 Office Communication [facility]. [address] [address] Kelin Beth ARNP 06/25/2024 2:15 PM EST Office Visit [facility] [address] [address] Kelin Beth ARNP Stage 3b chronic kidney disease (HCC) (Primary Dx); Hypertension; Other iron deficiency anemia; Low back pain, not otherwise specified from Last 3 Months Immunizations Name Administration Dates Next Due Pfizer SARS-COV-2 08/09/2020 Family History Medical History Relation Comments Heart disease Maternal Grandfather Diabetes Paternal Grandfather Relation Status Comments Father Maternal Grandfather Mother Paternal Grandfather Social History Tobacco Use Types Packs/Day Years Used Date Smoking Tobacco: Never Smokeless Tobacco: Never Tobacco Cessation:Counseling Given: Not Answered Alcohol Use Standard Drinks/Week Comments Yes 1 (1 standard drink = 0.6 oz pur e alcohol) per month Sex and Gender Information Value Date Recorded Sex Assigned at Not on file Legal Sex Male 9:16 AM EDT Gender Identity Not on file Sexual Orientation Not on file Last Filed Vital Signs Vital Sign Reading Time Taken Comments Blood Pressure 140/70 06/25/2024 2:18 PM EST Pulse 72 06/25/2024 2:18 PM EST Temperature - - Respiratory Rate - - Oxygen Saturation 99% 06/25/2024 2:18 PM EST Inhaled Oxygen Concentration - - Weight 98.4 kg (217 lb) 06/25/2024 2:18 PM EST Height 182.9 cm (6') 08/22/2021 4:16 PM EDT Body Mass Index 29.43 08/22/2021 4:16 PM EDT Plan of Treatment Upcoming Encounters Date Type Department Care Team (Late st Contact Info) Description 10/08/2024 1:45 PM EDT Office Visit [facility] [address] [address] Kelin Beth ARNP [address] [address] Health Maintenance Due Date Last Done Comments Colorectal Cancer Screening: Annual FOBT 09/08/2007 Colorectal Cancer Screening: Colonoscopy 09/08/2007 Colorectal Cancer Screening: Sigmoidoscopy 09/08/2007 Pneumococcal Vaccine: 65+ Ye ars (2 of 2 - PCV) 05/01/2015 05/01/2014 Pneumococcal Vaccine: Pediat rics (0 to 5 Years) and At-Risk Patients (6 to 64 Years) (2 of 2 - PCV) 05/01/2015 05/01/2014 Diabetes: Hemoglobin A1C 08/22/2021 Diabetes: Ophthalmology Exam 08/22/2021 Diabetes: Pedal Pulse Checked 08/22/2021 Diabetes: Sensory Foot Exam 08/22/2021 Diabetes: Visual Foot Exam 08/22/2021 Influenza Vaccine (#1) 2024 Hepatitis B Vaccine Aged Out No longe r eligible based on patient's age to complete this topic Procedures Procedure Name Priority Date/Time Associated Diagnosis Comments CBC Routine 07/17/2024 11:52 AM EST Other iron deficiency anemia URINE CULTURE Routine 06/26/2024 11:16 AM EST Stage 3b chronic kidney disease (HCC) Hypertension URINALYSIS WITH MICROSCOPIC Routine 06/26/2024 11:16 AM EST Stage 3b chronic kidney disease (HCC) Hypertension URINE ALBUMIN / CREATININE RATIO Routine 06/26/2024 11:16 AM EST Stage 3b chronic kidney disease (HCC) Hypertension PROTEIN / CREATININE RATIO, URINE Routine 06/26/2024 11:16 AM EST Stage 3b chronic kidney disease (HCC) Hypertension RENAL FUNCTION PANEL Routine 06/26/2024 11:16 AM EST Stage 3b chronic kidney disease (HCC) Hypertension RESULT Routine 06/26/2024 11:16 AM EST MICROSCOPIC EXAMINATION - DO NOT USE Routine 06/26/2024 11:16 AM EST IRON PANEL (FE, TIBC, TSAT) Routine 06/26/2024 11:15 AM EST Stage 3b chronic kidney disease (HCC) Other iron deficiency anemia FERRITIN Routine 06/26/2024 11:15 AM EST Stage 3b chronic kidney disease (HCC) Other iron deficiency anemia CBC Routine 06/26/2024 11:15 AM EST Stage 3b chronic kidney disease (HCC) Other iron deficiency anemia from Last 3 Months Results * (ABNORMAL) CBC (07/17/2024 11:52 AM EST) Only the most recent of2 resultswithin the time period is included. WBC 6.5 3.4 - 10.8 x10E3/uL [facility] RBC 3.45(L) 4.14 - 5.80 x10E6/uL [facility] Hemoglobin 10.2(L) 13.0 - 17.7 g/dL [facility] Hematocrit 30.4(L) 37.5 - 51.0 % [facility] MCV 88 79 - 97 fL [facility] MCH 29.6 26.6 - 33.0 pg [facility] MCHC 33.6 31.5 - 35.7 g/dL [facility] RDW 17.0(H) 11.6 - 15.4 % [facility] Platelets 220 150 - 450 x10E3/uL [facility] Blood (Blood, Venous) 07/17/2024 11:52 AM EST 07/17/2024 [facility] LAB BLOOD ORDERABLES Final Result Performing Organization Address City/[facility]/ZIP Co de Phone Number [facility] [address] [place] [address] * Result (06/26/2024 11:16 AM EST) Result No growth [facility] [place] 06/26/2024 11:1 6 AM EST 06/26/2024 [facility] LAB MICROBIOLOGY - GENERAL ORDERABLES Final Result [facility] [address] [place] [address] * Microscopic Examination (06/26/2024 11:16 AM EST) WBC, Urine None seen 0 - 5 /hpf [facility] RBC, Urine None seen 0 - 2 /hpf [facility] Squamous Epithelial, Urine None seen 0 - 10 /hpf [facility] Casts None seen None seen /lpf [facility] Bacteria, Urine None seen None seen/Few [facility] 06/26/2024 11:1 6 AM EST 06/26/2024 Kelin Beth [facility] LAB MICROBIOLOGY - GENERAL ORDERABLES Final Result Performing Organization Address City/[facility]/ZIP Co de Phone Number [facility] [address] [place] [address] * (ABNORMAL) Urine Protein / creatinine ratio (06/26/2024 11:16 AM EST) Creatinine, Ur 17.7 Not Estab. mg/dL [facility] Protein, Ur 5.4 Not Estab. mg/dL [facility] Urine Protein/Creati nine Ratio 305(H) 0 - 200 mg/g creat [facility] Urine (Urine, Clean Catch) 06/26/2024 11:16 AM EST 06/26/2024 Kelin [facility] LAB URINE ORDERABLES Final Result Performing Organization Address City/[facility]/ZIP Co de Phone Number [facility] [address] [place] [address] * (ABNORMAL) Urine Albumin / Creatinine Ratio (06/26/2024 11:16 AM EST) Albumin, Urine 30.5 Not Estab. ug/mL [facility] Albumin/Creatin ine Ratio 172(H) 0 - 29 mg/g creat [facility] Comment: ? Normal: ?0 - ??29 ? Moderately increased: 30 - 300 ? Severely increased: ? >300 Urine (Urine, Clean Catch) 06/26/2024 11:16 AM EST 06/26/2024 Kelin [facility] URINE ORDERABLES Final Result [facility] [address] [place] [address] * (ABNORMAL) Urinalysis with microscopic (06/26/2024 11:16 AM EST) Specific [place], Urine 1.008 1.005 - 1.030 [facility] pH Urine 6.0 5.0 - 7.5 [facility] Color, Urine Yellow Yellow [facility] Appearance Urine Clear Clear [facility] [place] [phone] WBC Esterase Urine Negative Negative [facility] [phone] Protein, Ur Negative Negative/Tra ce [facility] Glucose, Ur 1+(A) Negative [facility] Ketones, Urine Negative Negative [facility] [place] [phone] Blood Urine Negative Negative [facility] Bilirubin Urine Negative Negative [facility] [place] Urobilinogen Urine 0.2 0.2 - 1.0 mg/dL [facility] Nitrite, Urine Negative Negative [facility] [place] Microscopic Examination Comment [facility] Comment:Microscopic follows if indicated. Other Microsc. Observations See below: [facility] Comment:Microscopic was lance cated and was performed. Urine (Urine, Clean Catch) 06/26/2024 11:16 AM EST 06/26/2024 Kelin Beth [facility] URINE ORDERABLES Final Result [facility] [place] [address] [place] [address] * Urine culture (06/26/2024 11:16 AM EST) Culture Result, Urine Final report [facility] [place] Urine (Urine, Clean Catch) 06/26/2024 11:16 AM EST 06/26/2024 Comment: Kelin [facility] LAB URINE ORDERABLES Final Result Performing Organization Address City/[facility]/ZIP Co de Phone Number [facility] [place] [address], [address] [place] [address] * (ABNORMAL) Renal function panel (06/26/2024 11:16 AM EST) Glucose 122(H) 70 - 99 mg/dL [facility] BUN 37(H) 8 - 27 mg/dL [facility] Creatinine 1.25 0.76 - 1.27 mg/dL [facility] eGFR CKD-EPI CR 2020 64 >59 mL/min/1.7 3 [facility] BUN/Creatinine Ratio 30(H) 10 - 24 [facility] Sodium 139 134 - 144 mmol/L [facility] Potassium 4.4 3.5 - 5.2 mmol/L [facility] Chloride 105 96 - 106 mmol/L [facility] Bicarbonate (CO2) 19(L) 20 - 29 mmol/L [facility] Calcium 9.1 8.6 - 10.2 mg/dL [facility] Albumin 4.4 3.9 - 4.9 g/dL [facility] Phosphorus 4.5(H) 2.8 - 4.1 mg/dL [facility] Blood (Blood, Venous) 06/26/2024 11:16 AM EST 06/26/2024 Comment: Kelin Beth [facility] LAB BLOOD ORDERABLES Final Result Performing Organization Address City/[facility]/ZIP Co de Phone Number [facility] [place] [address] [place] [address] * Iron Panel (Fe, TIBC, TSAT) (06/26/2024 11:15 AM EST) [facility] TIBC 324 250 - 450 ug/dL [facility] UIBC 267 111 - 343 ug/dL [facility] Iron 57 38 - 169 ug/dL [facility] Iron Saturation (TSat) 18 15 - 55 % [facility] Blood (Blood, Venous) 06/26/2024 11:15 AM EST 06/26/2024 Kelin [facility] LAB BLOOD ORDERABLES Final Result Performing Organization Address City/[facility]/ZIP Co de Phone Number [facility] [place] [address] [place] [address] * Ferritin (06/26/2024 11:15 AM EST) Ferritin 95 30 - 400 ng/mL [facility] Blood (Blood, Venous) 06/26/2024 11:15 AM EST 06/26/2024 Kelin Beth RELIGION INSTRU[employer] LAB BLOOD ORDERABLES Final Result [facility] [place] [address] [place] [address] from Last 3 Months Insurance UNICARE UNICARE Care Teams Promotional Advertising Assistant Relationship Specialty Start Date End Date Mark Leavitt MD [address] [facility] [address] [place] [phone] PCP - General Family Medicine 9/29/21
--- OUTSIDE RECORDS SUMMARY | 2024-09-03 09:39 | XMS_ITS | Clinical Summary ---
Author Organization [address] Address [address] [place] [address] Phone Care Team Providers Care Balance Wheel Motion Inspector Name Role Phone Mark Leavitt MD Primary Care Provider Allergies Active Allergy Reactions Criticality Noted Date Comments Doxycycline Other (See Comments) Medium 08/15/2021 Erythromycin Other (See Comments) Medium 08/15/2021 Penicillins Hives,Rash High 03/24/2021 Sulfaphenazole Unknown 03/24/2021 Medications acetaminophen (TYLENOL) 325 mg tablet Take by mouth every 6 (six) hours as needed. Active MOUNJARO 5 mg/0.5 mL PnIj 09/13/2022 Acti ve valsartan (DIOVAN) 40 mg tablet 09/28/2022 Active simvastatin (ZOCOR) 20 mg tablet 09/13/2022 Active BD INSULIN SYRINGE ULTRA-FINE 1 mL 30 gauge x 1/2 syringe DIRECTED WITH INSULIN DAILY 05/29/2022 Active metoprolol succinate XL (TOPROL-XL) 25 mg 24 hr tablet 09/13/2022 Act shruti metFORMIN (GLUCOPHAGE) 500 mg Immediate Release tablet 2 (two) times daily. 09/11/2022 Active meloxicam (MOBIC) 15 mg tablet Take 1 tablet (15 mg total) by mouth daily. 05/18/2022 Active SYNTHROID 300 mcg tablet 09/13/2022 Active SEMGLEE,INSULIN GLARG-YFGN,PEN 100 unit/mL (3 mL) InPn INJECT 34 UNITS EVERY MORNING AND 32 UNITS EVERY EVENING UNDER THE SKIN TWICE DAILY 11/07/2022 Active hydroCHLOROthia zide (HYDRODIURIL) 25 mg tablet 09/11/2022 Active glipiZIDE (GLUCOTROL) 10 mg Immediate Release tablet 09/13/2022 Acti ve Active Problems No known active problems Social History Tobacco Use Types Packs/Day Years Used Date Smoking Tobacco: Never Assessed Sex and Gender Information Value Date Recorded Sex Assigned at Not on file Legal Sex Male 4:47 PM EST Gender Identity Not on file Sexual Orientation Not on file Plan of Treatment Health Maintenance Due Date Last Done Comments HIV screening 09/08/1971 Hepatitis C screening 1976 Tetanus adult (Td q 10,TDAP once) 1978 Lipid disorder screening 1998 Colon cancer screening, Colonoscopy 09/08/2003 Diabetes screening 09/08/2003 Shingles vaccine (Shingrix) (1 of 2 - Shingrix (RZV) 2 Dose Standard Series) 2008 Pneumococcal Vaccine (50+ ye ars) (1 of 1 - PCV) 09/08/2023 Influenza vaccine 01/10/2024 Covid-19 vaccine series (2 - 2023- season) 2024 08/09/2020 RSV Immunization (1 - 1-dose 75+ series) 2033 Meningococcal Vaccine Aged Out No evan mame eligible based on patient's age to complete this topic Insurance ([place]) [address] [id number] [facility] [employer] [facility] Care Teams Balance Wheel Motion Inspector Relationship Specialty Start Date End Date Mark Leavitt MD [address] [place] [address] PCP - General Family Medicine 11/22/22
--- OUTSIDE RECORDS SUMMARY | 2024-09-03 09:39 | XMS_ITS ---
Author Organization [facility] Address [address] [place] [address] Care Team Providers Care Cyber Incident Responder Name Role Phone Dagmar HARMON, Mark Primary Care Provider Marianna Arias [phone] Encounters Encounter Location Date Provider Diagnosis [address] [address] 06/19/2024 Marianna Bergman Plan Of Treatment Next Appt Details Provider Name:Marianna Bergman , 11/17/2024 08:30:00 AM, [address] [place], [address], Progress Notes * Junaid MORENO PDOB: [birth year] (63 yo M)Acc No.[id number]:06/19/2024 Progress Note Patient:?Junaid MORENO Anita Provider:?Marianna Bergman DPM :1960???Age:63 Y???Sex:Male Kirt e:06/19/2024 Address:[address] [place], [place] [address] Pcp:Mark Leavitt MD Subjective: * Chief Complaints: * ??? * Medical History:? Objective: * Vitals:? Assessment: Plan: * Treatment: * Images: * The named appointment provid er may or may not be the originator of this progress note, and it is not deemed complete until electronically signed by the appointment provider. Sign off status: Pending * Provider:?Marianna Bergman DPM Date:?2024 Generated for Doyle spangler/Estela/Isac on:?09/03/2024 09:39 AM EDT
--- OUTSIDE RECORDS SUMMARY | 2024-09-03 09:39 | XMS_ITS ---
Author Organization [facility] Address [address] [place] [address] Care Team Providers Care Retail Pos Specialist Name Role Phone Mark Leavitt MD Primary Care Provider Marianna Arias [phone] REASON FOR VISIT Parking Placard Application Encounters Encounter Location Date Provider Diagnosis [address] [address] 04/24/2024 Marianna Bergman Plan Of Treatment Next Appt Details Provider Name:Marianna Bergman , 11/17/2024 08:30:00 AM, [address] [place], [address], Progress Notes * Junaid MORENO PDOB: [birth year] (63 yo M)Acc No.[id number]:04/24/2024 Patient:?Junaid MORENO :1960???Age:63 Y???Sex:Male Address:[address] [place] [address] * true * Date:? Generated for Printi ng/Faspg/eTransmitting on:?09/03/2024 09:39 AM EDT
--- OUTSIDE RECORDS SUMMARY | 2024-09-03 09:39 | XMS_ITS | Patient Health Record ---
Author Organization [facility] Address [address] [place] [phone] Care Team Providers Care Nut Chopper Name Role Phone Mark Leavitt Primary Care Provider Malick Rubio [phone] Allergies Allergen (clinical drug ingredient) Drug/Non Drug Allergy documented on EMR Reaction Allergy Type Onset Date Status Penicillin Unknown Drug Allergy Active Reason For Referral No Information Medications Medication SIG (Take, Route, Fr equency, Duration) Notes Start Date End Date Status glipiZIDE Active metFORMIN HCl Active Multivitamin Active hydroCHLOROthiazide Active Simvastatin Active Valsartan Active Trulicity Active Lantus Active Levothyroxine Sodium Active Problems Problem Type SNOMED Code ICD Code Onset Dates Problem Status W/U Status Risk Notes Problem 46557071 Iron deficiency anemia (D50.9) Active confirmed Problem [id number] Iron deficiency anemia, unspecified iron deficiency anemia type (D50.9) Active confirmed Problem 096022425 Anemia, unspecified type (D64.9) Active confirmed Encounters Encounter Location Date Provider Diagnosis [facility] [address] [place] [phone] 06/10/2024 Malick Parmar Plan Of Treatment Pending Test Test Name Order Date IRON + IBC (FE) 03/28/2016 FERRITIN 03/28/2016 CBC w DIFF 03/28/2016 Future Test Test Name Order Date UPPER GI ENDOSCOPY 12/01/2015 COLONOSCOPY 12/01/2015 Insurance Providers Payer Name Payer Address Payer Phone Subscriber Number Group Number Insured Name Patient Relationship to Insured Coverage Start Date Coverage End Date [employer] ([employer]) [address] [place] [address] [id number] JAMES MORENO Self - patient is the insured Medical (General) History Medical History History ICD Code IDDM Kidney stones Hypertension Asthma Diverticulitis-1989 Hyperlipidemia Hypothyroidism Denies [place],CVA,renal disease Sleep apnea--uses CPAP Negative colonoscopy at age 48 at [facility] Dr. Carrero Iron deficiency anemia--uppe r endoscopy in January of 2016 revealed only a small hiatal hernia, but was otherwise negative--duodenal and gastric biopsies were normal; a colonoscopy was normal at that time as well. Surgical History Surgery Date(Month/Year) Undescended testicles 1966 Knee surgery on the left 2015 Right index finger-skin graft 1976
== END 2024-09-03 09:27 | disposition home or self-care (01) ==
LOC: HO.ENCR 08:52
PROVIDERS: PCP Family Medicine; Visit Provider Internal Medicine
DX: E11.22 Type 2 diabetes mellitus with diabetic chronic kidney disease (principal); N18.30 Chronic kidney disease, stage 3 unspecified; Z79.4 Long term (current) use of insulin

== ENCOUNTER → 2024-09-03 08:52 | Outpatient (BNVA) | payer OTHER, SELFPAY | PROVIDERS: PCP Family Medicine; Visit Provider Internal Medicine | DX: E11.22 Type 2 diabetes mellitus with diabetic chronic kidney disease (principal); N18.30 Chronic kidney disease, stage 3 unspecified; Z79.84 Long term (current) use of oral hypoglycemic drugs; Z79.4 Long term (current) use of insulin; Z79.899 Other long term (current) drug therapy | CPT/HCPCS: 82947; 83036 ==

== ENCOUNTER 2025-04-22 13:48 | Outpatient (AMB) | payer OTHER, SELFPAY ==
--- OUTSIDE RECORDS SUMMARY | 2024-06-10 08:40 | XMS_ITS ---
Author Organization [facility] Address [address] [facility] [place] [address] Care Team Providers Care Bunker Worker Name Role Phone Mark Leavitt Primary Care Provider Unavailab Malick [place] [phone] REASON FOR VISIT Patient presents today for a discuss colonoscopy Encounters Encounter Location Date Provider Diagnosis [facility] [address] [place] [address] 06/10/2024 Malick Parmar Plan Of Treatment No Information Progress Notes * JAMES MORENO PDOB: [birth year] (64 yo M)Acc No.[id number]:06/10/2024 Progress Notes Patient: EULOGIO BARRETTREY Anita Provider: Rober Parmar MD :1960 A ge:63 Y S ex:Male Date:06/10/2024 [id number] Pcp:Mark Leavitt Subjective: * Chief Complaints: * 1 . Patient presents today for a discuss colonoscopy. * Medical History: Objective: * Vitals: Assessment: Plan: * Treatment: * * The named appointment provid er may or may not be the originator of this progress note, and it is not deemed complete until electronically signed by the appointment provider. Sign off status: Pending * Provider: Rober Parmar MD Date: Generated for Bennyi ng/Faxing/eTransmitting on: 06/22/2024 04:52 PM EST
--- OUTSIDE RECORDS SUMMARY | 2024-06-19 05:15 | XMS_ITS ---
Author Organization [facility] Address [address] [place] [address] Care Team Providers Care Elevator Installer Name Role Phone Mark Leavitt MD Primary Care Provider Marianna Arias [phone] Encounters Encounter Location Date Provider Diagnosis [facility] [address] [place] [address] 06/19/2024 Marianna Bergman Plan Of Treatment Next Appt Details Provider Name:Marianna Sapphire Bergman , 05/25/2025 08:00:00 AM, [address] [place], [address], Progress Notes * Junaid MORENO PDOB: [birth year] (64 yo M)Acc No.[id number]:06/19/2024 Progress Note Patient: Junaid BARRETT Provider: Peña Bergman DPM :1960 A ge:63 Y S ex:Male Date:06/19/2024 Address[address] [place] Pcp:Mark Leavitt MD Subjective: * Chief Complaints: * * Medical History: Objective: * Vitals: Assessment: Plan: * Treatment: * Images: * The named appointment provid er may or may not be the originator of this progress note, and it is not deemed complete until electronically signed by the appointment provider. Sign off status: Pending * Provider: Peña Bergman DPM Date: 0 06/19/2024 Generated for Doyle spangler/Estela/Isac on: 1 06/22/2024 04:52 PM EST
--- NOTE | 2025-04-22 13:59 | MHC.PC.OV ---
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 Required: No Allergies Penicillins (PENICILLINS) Allergy (Intermediate, Verified 04/22/25 14:09) RASH/HIVES Sulfa (Sulfonamide Antibiotics) Allergy (Unknown, Verified 04/22/25 14:09) Unknown DOCXICYCLINE Allergy (Mild, Uncoded 09/03/24 08:55) Rash Medication List - Last Reconciled 04/22/25 by Mark Leavitt MD cane As directed dapagliflozin propanediol (Farxiga) 5 mg PO DAILY 90 days Dexcom G7 Sensor (blood-glucose sensor) EVERY 10 DAYS NS insulin syringe-needle U-100 (BD Insulin Syringe Ultra-Fine) BID Lantus admin Lantus Solostar U-100 Insulin (insulin glargine) 25 units (0.25 mL) subcut DAILY NS levothyroxine 250 mcg (2 x 125 mcg) PO DAILY 30 days metformin 500 mg PO BID Mounjaro (tirzepatide) 5 mg (0.5 mL) subcut QWEEK NS pen needle, diabetic Once Daily As directed, 90 days simvastatin 20 mg PO QPM 90 days valsartan 40 mg PO BID 90 days Tobacco use date assessed: 09/27/23 Dental Screening Dental Screen Date: 09/27/23 HPI f/u hypothyroidism HPI Details 64 y/o male presents to f/u chronic conditions. No recent labs to review for his thyroid. BP today 128/60, 77p. He is on valsartan 40mg b.i.d. A1c today 04/22/25 is 8.8% He is on metformin 500mg b.i.d, Mounjaro, Lantus 25 units, Farxiga 5mg daily. He notes he has not been working on a diabetic diet. Reports grief/acute adjustment disorder. Pt's son has . HPI Comments History of Present Illness Details Documentation assistance for Mark Leavitt MD, was provided by Frandy Llenardo Banerjee,? [employer] on 04/22/2025 at 2:32 PM BENNETT. I, Dr. Leavitt, have read, observed, and verified documentation. [facility] Medical History Hypertension Diabetes Hammer toe Surgical History Hx of foot surgery History of testicular surgery Hx of left knee surgery Family History Father No problems noted. Mother No problems noted. Social History Housing: House Alcohol intake: current Alcohol intake frequency: holidays/special occasions only Patient Tobacco Use Status: Never used Tobacco e-Cigarette/Vaping Use: Never Used Second Hand Smoke Exposure: No service: No Current occupational status: employed Current occupational exposures/hazards: No Cognitive needs: No Hearing needs: No Vision needs: Yes (glasses) Questionnaire PHQ-9 Over the last 2 weeks, how often have you been bothered by any of the following problems? 1. Little interest or pleasure in doing things: not at all 2. Feeling down, depressed, or hopeless: not at all 3. Trouble falling or staying asleep, or sleeping too much: not at all 4. Feeling tired or having little energy: not at all 5. Poor appetite or overeating: not at all 6. Feeling bad about yourself - or that you are a failure or have let yourself or your family down: not at all 7. Trouble concentrating on things, such as reading the newspaper or watching television: not at all 8. Moving or speaking so slowly that other people could have noticed. Or the opposite - being so fidgety or restless that you have been moving around a lot more than usual: not at all 9. Thoughts that you would be better off or of hurting yourself in some way: not at all Total score: 0 Source: Developed by Drs. Malick Sanders, Ann Anthony, Yao Pacheco and colleagues, with an educational brigida from [employer]. Thrive Questionnaire Date Thrive assessed: 04/19/25 I am a: Patient What is your living situation today?: I have a steady place to live Within the past 12 months, did the food you bought not last and you didn't have the money to get more?: Never true Within the past 12 months, did you worry whether your food would run out before you got money to buy more?: Never true Do you have trouble paying for medicines?: No Do you have trouble getting transportation to medical appointments?: No Do you have trouble paying your heating and electricity bill?: No Do you have trouble taking care of your child, family member or friend?: No Do you have trouble with day-to-day activities such as bathing, preparing meals, shopping, managing finances, etc.?: No Are you currently unemployed and looking for a job?: No Are you interested in more education?: I choose not to answer this question Please select the resources that you would like help with: None Currently or been in a relationship where the following occur: No concerns reported THRIVE Score: 0 AUDIT C Alcohol Use Questionnaire (AUDIT-C) 1. How often do you have a drink containing alcohol?: Monthly or less 2. How many drinks containing alcohol do you have on a typical day when you are drinking?: 1 or 2 3. How often do you have six or more drinks on one occasion?: Never Total Score: 1 NATI-7 AMB Questionnaire NATI-7 Date NATI - 7 assessed: 07/23/23 Feeling nervous, anxious, or on edge: 0 = Not at all Not being able to stop or control worryin = Not at all Worrying too much about different things: 0 = Not at all Trouble relaxin = Not at all Being so restless that it is hard to sit still: 0 = Not at all Becoming easily annoyed or irritable: 0 = Not at all Feeling afraid as if something awful might happen: 0 = Not at all Total NATI-7 score (0-4 normal; 5-9 mild; 10-14 moderate; 15-21 severe): 0 Source: Developed by Drs. Malick Sanders, Ann Anthony, Yao Pacheco and colleagues, with an educational brigida from [employer]. Review of Systems Const Denies chills, Denies fatigue, Denies fever(s), Denies headache(s) and Denies weakness ENT Denies dizziness and Denies headache(s) Card Denies dyspnea Resp Denies cough, Denies dyspnea, Denies wheezing and Denies other (shortness of breath) Musc Denies numbness and Denies tingling Neuro Denies dizziness, Denies headache(s), Denies numbness, Denies tingling and Denies weakness Psych Denies anxiety and Denies depression Endo Denies fatigue Aller/Immun Denies wheezing Physical exam (Primary Care) Vital Signs: Last Vital Signs Temp 97.6 F 04/22/25 14:10 Pulse 77 04/22/25 14:10 Resp 16 04/22/25 14:10 BP 128/60 04/22/25 14:10 Pulse Ox 97 04/22/25 14:10 Oxygen Delivery Method Room Air 04/22/25 14:10 BMI result Body Mass Index 30.8 Tobacco/Smoking Status: Tobacco use Status Tobacco use date assessed 09/27/23 04/22/25 14:00 Patient Tobacco Use Status Never used Tobacco 04/22/25 14:00 e-Cigarette/Vaping Use Never Used 04/22/25 14:00 PHQ-9: PHQ-9 Score PHQ-9: Total score 0 04/22/25 14:09 Thrive Assessment: Date of Thrive Assessment Date Thrive assessed 04/19/25 04/22/25 14:00 Currently or been in a relationship where the following occur: No concerns reported Const General: well developed; No acute distress Nutritional Appearance: well nourished Orientation/consciousness: [facility]: Yes normocephalic and Yes atraumatic Eyes General: appearance normal, both eyes and all related structures Pupils: Equal, round and reactive pupils present EOM: EOMs intact bilaterally Resp Effort & Inspection: normal respiratory effort Auscultation: clear to auscultation bilaterally Cardio Rate: regular rate Rhythm: regular rhythm Heart sounds: S1 normal heart sound present, S2 normal heart sound present, no gallops, no murmurs and no rubs Neuro General: patient oriented x3 and gait normal Cranial nerves: Yes Equal, round and reactive pupils present Psych Affect: normal affect Coding Level of Care Code Est Pt Level 4 (98247) Diagnoses Hypertension, essential I10 Type 2 diabetes mellitus with stage 3 chronic kidney disease, with long-term current use of insulin, unspecified whether stage 3a or 3b CKD E11.22; N18.30; Z79.4 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 Patient's son last weekend he says that over the last several months he has not been working on a diabetic diet due to illness and imminent passing of his son. Has all medications; Farxiga, Lantus, metformin and Mounjaro Had offered in additional medication but patient wants to continue working at dietary and lifestyle changes and continue medications as prescribed. Follow-up with endocrinology as well (3) Hypothyroid: Code(s): E03.9 - Hypothyroidism, unspecified Category: Medical Qualifiers: Hypothyroidism type: unspecified Qualified Code(s): E03.9 - Hypothyroidism, unspecified Plan: Has not taking levothyroxine 250 mcg daily Her recent labwork for this Will check thyroid hormone levels (4) Acute adjustment disorder: Code(s): F43.20 - Adjustment disorder, unspecified Category: Medical Plan: Son recently from [facility] Has family supports and he and his want to seek a grief counselor. Will ask the nurse navigator to help connect him with one. Briefly let patient know that medications are available and he declines these Orders: Orders Complete Blood Count Auto Diff Today Z00.00 - Encounter for general adult medical examination without abnormal findings Free T4 (Free Thyroxine) Today E03.9 - Hypothyroidism, unspecified Thyroid Stimulating Hormone Today E03.9 - Hypothyroidism, unspecified Triiodothyronine T3 Total Today E03.9 - Hypothyroidism, unspecified Comprehensive Dairy. Panel Fast Today Z00.00 - Encounter for general adult medical examination without abnormal findings Lipid Panel Today Z00.00 - Encounter for general adult medical examination without abnormal findings Microalbumin, Random (w Creat) Today I10 - Essential (primary) hypertension Prostate Specific Antigen Scr Today Z12.5 - Encounter for screening for malignant neoplasm of prostate UA CC w/rflx Micro + Cult Today Z00.00 - Encounter for general adult medical examination without abnormal findings Referrals Nurse Navigator Referral F43.20 - Adjustment disorder, unspecified, F43.21 - Adjustment disorder with depressed mood, Z63.4 - Disappearance and of family member
[2025-04-22 14:10] VITALS: BP 128/60; PULSE 77; RESP 16; TEMP 36.4; O2SAT 97; BMI 30.8
--- OUTSIDE RECORDS SUMMARY | 2025-04-22 16:52 | XMS_ITS | Patient Health Record ---
Author Organization [facility] Address [address] [place] [address] Care Team Providers Care Process Safety Engineer Name Role Phone Mark Leavitt Primary Care Provider Malick Rubio [phone] Allergies Allergen (clinical drug ingredient) Drug/Non Drug [...] Problem Status W/U Status Risk Notes Problem Iron deficiency anemia (96279861) Iron deficiency anemia (D50.9) Active confirmed Problem Iron deficiency anemia (66798572) Iron deficiency anemia, unspecified iron deficiency anemia type (D50.9) Active confirmed Problem Anemia (875460797) Anemia, unspecified type (D64.9) Active confirmed Encounters Encounter Location Date Provider Diagnosis [facility] [address] [place] [address] 06/10/2024 Malick Parmar Plan Of Treatment Pending [...] Date [employer] ([employer]) [address] [place] [address] [id number] JAMES MORENO Self - patient is the insured Medical (General) History Medical History History ICD Code IDDM Kidney stones Hypertension Asthma Diverticulitis-1989 Hyperlipidemia Hypothyroidism Denies [place],CVA,renal disease Sleep apnea--uses CPAP Negative colonoscopy at [...]
--- OUTSIDE RECORDS SUMMARY | 2025-04-22 16:52 | XMS_ITS | Clinical Summary ---
Author Organization [address] Address [address] [place] [phone] Phone Care Team Providers Care General Office Dispatcher Name Role Phone Mark Leavitt MD Primary [...] cancer screening, Colonoscopy 09/08/2003 Diabetes screening 09/08/2003 Pneumococcal Vaccine (50+ ye ars) (1 of 1 - PCV) 2008 Shingles vaccine (Shingrix) (1 of 2 - Shingrix (RZV) 2 Dose Standard Series) 2008 Influenza vaccine 01/09/2025 Covid-19 vaccine series (2 - season) 2025 08/09/2020 RSV Immunization (1 - 1-dose 75+ series) 2033 Meningococcal B Vaccine Aged Out No l onger eligible based on patient's age to complete this topic Meningococcal Vaccine Aged Out No evan mame eligible based on patient's age to complete this topic Insurance [employer] on file Ark on file [address] [place], [place] [address]POINT on file Care Teams General Office Dispatcher Relationship Specialty Start Date End Date Mark Leavitt MD [address] [place] [address] PCP - General Family Medicine 11/22/22
--- OUTSIDE RECORDS SUMMARY | 2025-04-22 16:52 | XMS_ITS | Patient Health Record ---
[facility] Organization [facility] Address [address] [facility] [place] [address] Care Team Providers Care Single Stroke Preformer Name Role Phone Mark Leavitt MD Primary Care Provider Marianna Arias Unavailable [phone] Allergies Allergen (clinical drug ingredient) Drug/Non Drug Allergy documented on EMR Reaction Allergy Type Onset Date Status doxycycline Doxycycline Hyclate hives Drug Allergy Active erythromycin Erythromycin Unknown Drug Allergy A ctive Penicillin Unknown Drug Allergy Active Results Component Value Reference Range Notes HEMOGLOBIN A1C (GLYCOHEMOGLO BIN) Reviewed date:08/06/2024 09:07:56 AM Interpretation: Performing Lab: Notes/Report: HEMOGLOBIN A1C % (HH) 7.0 HEMOGLOBIN A1C (GLYCOHEMOGLO BIN) Reviewed date:11/17/2024 09:11:57 AM Interpretation: Performing Lab: Notes/Report: HEMOGLOBIN A1C % (HH) 6.9 HEMOGLOBIN A1C (GLYCOHEMOGLO BIN) Reviewed date:02/19/2025 08:11:09 AM Interpretation: Performing Lab: Notes/Report: HEMOGLOBIN A1C % (HH) 7.0 HEMOGLOBIN A1C (GLYCOHEMOGLO BIN) Reviewed date:03/04/2025 01:48:13 PM Interpretation: Performing Lab: Notes/Report: HEMOGLOBIN A1C % (HH) 7.0 Reason For Referral No Information Medications Medication SIG (Take, Route, Frequency, Duration) Notes Start Date End Date Status Levothyroxine Sodium Active Farxiga 10 MG 1 tablet Orally Once a day Active Silvadene 1 % 1 application to affected area Externally Once a day; Duration: 30 days PRN 08/22/2018 Not-Taking Ciclopirox Olamine 0.77% external Apply to effected areas twice a day; Duration: 30 days PRN 01/23/2014 Not-Taking Bactrim DS 800-160 MG 1 tablet Orally Twice a day; Duration: 10 day(s) Not-Taking Trulicity Not-Taking Bactrim DS 800-160 MG 1 tablet Orally every 12 hrs; Duration: 14 days 10/19/2021 Not-Taking Ciclopirox Olamine 0.77 % 1 application Externally Twice a day; Duration: 30 days 01/05/2022 Not-Taking glipiZIDE 10 MG Orally Not- Taking Doxycycline Monohydrate 100 MG 1 capsule Orally every 12 hrs; Duration: 14 days 10/19/2021 Not-Taking Levaquin 250 MG 2 tablets Orally Once a day; Duration: 5 days 10/24/2021 Not-Taking Bactrim DS 800-160 MG 1 tablet Orally Twice a day 08/22/2018 Not-Taking Pneumatic Compression Boot 30mm Hg as directed over swollen feet and legs as directed; Duration: . 01/21/2024 Not-Taking hydroCHLOROthiazide 12.5 MG 1 tablet in the morning Orally Once a day Not-Taking Extra Depth Orthopedic Shoes (1 Pair) with Customized Heat Molded Multidensity Innersoles (3 Pair) as directed Dx: NIDDM/Polyneuropat hy (E11.42), Hammertoe Foot Deformity (M20.41,M20.42), Preulcerative Skin Lesion(s) (L85.1 11/17/2024 Active Iodosorb 0.9 % as directed Externally Apply to ulceration daily with dry sterile dressing; Duration: 30 days 03/04/2025 Active Acetaminophen Extra Strength 500 MG 2 tablet as needed Orally every 6 hrs; Duration: 30 days PRN 10/01/2023 Active Cipro 500 MG 1 tablet Orally every 12 hrs; Duration: 10 day(s) 06/23/2019 Not-Taking Mounjaro 5 MG/0.5ML INJECT 5 MG SUBCUTANEOUS ONCE PER WEEK Subcutaneous; Duration: 28 Days Active Jardiance 10 MG Orally Not- Taking Valsartan 120 1 tablet Orally twice a day Active Doxycycline Hyclate 100 MG 1 tablet Orally Once a day; Duration: 10 day(s) 02/24/2020 Not-Taking Lantus 100 UNIT/ML as directed Subcutaneous once a day insulin 20 units Active Valsartan 80 MG Orally Not- Taking metFORMIN HCl 500 MG as directed Orally twice a day Active Extra Depth Orthopedic Shoes (1 Pair) with Customized Heat Molded Multidensity Innersoles (3 Pair) as directed Dx: NIDDM/Polyneuropat hy (E11.42), Hammertoe Foot Deformity (M20.41,M20.42), Preulcerative Skin Lesion(s) (L85.1 Not-Taking Simvastatin Active Bactrim DS 800-160 MG 1 tablet Orally Twice a day; Duration: 10 day(s) 02/27/2020 Not-Taking Extra Depth Orthopedic Shoes (1 Pair) with Customized Heat Molded Multidensity Innersoles (3 Pair) as directed Dx: NIDDM/Polyneuropat hy (E11.42), Hammertoe Foot Deformity (M20.41,M20.42), Preulcerative Skin Lesion(s) (L85.1 08/31/2016 Not-Taking Extra Depth Orthopedic Shoes (1 Pair) with Customized Heat Molded Multidensity Innersoles (3 Pair) as directed Dx: NIDDM/Polyneuropat hy (E11.42), Hammertoe Foot Deformity (M20.41,M20.42), Preulcerative Skin Lesion(s) (L85.1 11/28/2018 Not-Taking Extra-Depth Diabetic Shoes with 3 Pair Custom heat-molded multi-density innersoles Not-Taking aspirin Not-Taking Ibuprofen 800 MG 1 tablet every Orally every 8 hrs; Duration: 14 10/01/2023 Not-Taking Linezolid 600 MG TAKE 1 TABLET BY MOUTH TWO TIMES A DAY FOR 10 DAYS Oral; Duration: 10 Days Not-Taking Cefpodoxime Proxetil 200 MG TAKE 1 TABLET BY MOUTH EVERY 12 HOURS FOR 7 DAYS Oral; Duration: 7 Days Not-Taking Nystatin 388057 UNIT/GM 1 application Externally Twice a day; Duration: 30 days 11/09/2023 Not-Taking Cephalexin 500 MG 1 capsule Orally every 12 hrs; Duration: 10 day(s) 11/09/2023 Not-Taking Gabapentin 300 MG 1 capsule Orally at bedtime; Duration: 15 10/01/2023 Not-Taking levoFLOXacin 750 MG 1 tablet Orally Once a day; Duration: 10 day(s) 10/25/2023 Not-Taking Walker as directed 10/01/2023 Not-Chuck ing Extra Depth Orthopedic Shoes (1 Pair) with Customized Heat Molded Multidensity Innersoles (3 Pair) as directed Dx: NIDDM/Polyneuropat hy (E11.42), Hammertoe Foot Deformity (M20.41,M20.42), Preulcerative Skin Lesion(s) (L85.1 08/22/2018 Not-Taking Insulin Lantus Not-Taking diovan Not-Taking Clindamycin HCl 300 MG Oral; Duration: 1 4 Days Not-Taking Flonase Not-Taking Actos Not-Taking Keflex 500 MG 1 capsule Orally every 12 hrs; Duration: 10 day(s) 08/21/2016 Not-Taking Osteo Bi-Flex Adv Double St Not-Taking Motrin PRN Not-Taking ZyrTEC Allergy Not-T aking hydroCHLOROthiazide 25 MG Orally Not-Taking Bactrim DS 800-160 MG 1 tablet Orally every 12 hrs; Duration: 10 day(s) 01/18/2023 Not-Taking levoFLOXacin 500 MG 2 tablets Orally Once a day; Duration: 10 days 03/26/2023 Not-Taking levoFLOXacin 500 MG 2 tablets Orally Once a day; Duration: 10 days 04/05/2023 Not-Taking Silvadene 1 % 1 application Externally Once a day with DSD; Duration: 30 days Not-Taking Bactrim DS 800-160 MG 1 tablet Orally Twice a day; Duration: 10 day(s) 03/22/2023 Not-Taking Flexeril Not-Taking Meloxicam 15 MG 1 tablet Orally Once a day Not-Taking Immunizations Vaccine Route Administration Date Status Comme nts Influenza Unknown 04/24/2016 Administered Influenza Unknown 04/17/2017 Administered Influenza Unknown 04/23/2018 Administered Influenza Unknown 03/11/2019 Administered Influenza Unknown 02/10/2020 Administered Influenza Unknown 03/23/2022 Administered Influenza Unknown 03/12/2023 Administered Influenza Unknown 04/11/2024 Administered COVID-19 Pfizer BioNTech Vaccine Unknown 08/09/2020 Administered Second Dose: 08/30/2020 Social History Tobacco Use: Social History Observation [...] monthly (1 point) Points 3 Interpretation Negative Problems Problem Type SNOMED Code ICD Code Onset Dates Problem Status W/U Status Risk Notes Problem Polyneuropathy due to type 2 diabetes mellitus (910379833) Type 2 diabetes mellitus with diabetic polyneuropathy (E11.42) Active confirmed Problem Neuropathic ulcer of right foot (disorder) ([id number] 02) Neuropathic ulcer of right foot, limited to breakdown of skin (L97.511) Active confirmed Response to treatment Resolved Vital Signs Blood pressure diastolic 80 mm Hg 03/19/2025 Height 6ft in 03/19/2025 Blood pressure systolic 120 mm Hg 03/19/2025 Weight 220 lbs 03/19/2025 BMI 29.83 kg/m2 03/19/2025 Procedures Procedure Date Ordered Date Performed Result Body Sit e 39028-SCMSKAT NAIL, 6 OR MORE 08/06/2024 N/A 36829-AVDE SKIN LESIONS, OVER 4 08/06/2024 N/A 41008-RIMWYBI NAIL, 6 OR MORE 11/17/2024 N/A 67072-ZQGM SKIN LESIONS, OVER 4 11/17/2024 N/A 05921-BKSTLIN NAIL, 6 OR MORE 02/19/2025 N/A 17107-NGNY SKIN LESIONS, OVER 4 02/19/2025 N/A Encounters Encounter Location Date [facility] [address] [facility]/2024 Marianna Black Type 2 diabetes mellitus with diabetic polyneuropathy E11.42 and Tinea unguium B35.1 [facility] [address] [place] [address] 11/17/2024 Marianna Black Type 2 diabetes mellitus with diabetic polyneuropathy E11.42 ; Other hammer toe(s) (acquired), right foot M20.41 ; Tinea unguium B35.1 and Other hammer toe(s) (acquired), left foot M20.[address] [address] 02/19/2025 Marianna Black Type 2 diabetes mellitus with diabetic polyneuropathy E11.42 ; Other hammer toe(s) (acquired), right foot M20.41 ; Tinea unguium B35.1 and Other hammer toe(s) (acquired), left foot M20.[address] [address] 03/04/2025 Marianna Black Neuropathic ulcer of right foot, limited to breakdown of skin L97.511 and Type 2 diabetes mellitus with diabetic polyneuropathy E11.[address] [address] 03/19/2025 Marianna Black Type 2 diabetes mellitus with diabetic polyneuropathy E11.42 and Neuropathic ulcer of right foot, limited to breakdown of skin L97.[address] [address] 04/24/2024 Marianna Bergman [address] [address] 03/03/2025 Marianna Black Assessments Encounter Date Diagnosis (ICD Code) Assessment Notes Treatment Notes Treatment Clinical Notes Section Notes 08/06/2024 Type 2 diabetes mellitus with diabetic polyneuropathy (ICD-10 - E11.42) 08/06/2024 Tinea unguium (ICD-10 - B35.1) 11/17/2024 Other hammer toe(s) (acquired), right foot (ICD-10 - M20.41) Patient Educated with: DIABETIC FOOT CARE INSTRUCTIONS. pdf (DIABETIC FOOT CARE INSTRUCTIONS. pdf) 11/17/2024 Type 2 diabetes mellitus with diabetic polyneuropathy (ICD-10 - E11.42) 02/19/2025 Other hammer toe(s) (acquired), right foot (ICD-10 - M20.41) 02/19/2025 Type 2 diabetes mellitus with diabetic polyneuropathy (ICD-10 - E11.42) 03/04/2025 Type 2 diabetes mellitus with diabetic polyneuropathy (ICD-10 - E11.42) 03/04/2025 Neuropathic ulcer of right foot, limited to breakdown of skin (ICD-10 - L97.511) Response to treatment Nonapplicable Patient Educated with: WOUND CARE INSTRUCTIONS. pdf (WOUND CARE INSTRUCTIONS. pdf) 03/19/2025 Type 2 diabetes mellitus with diabetic polyneuropathy (ICD-10 - E11.42) 03/19/2025 Neuropathic ulcer of right foot, limited to breakdown of skin (ICD-10 - L97.511) Response to treatment Resolved 02/19/2025 Tinea unguium (ICD-10 - B35.1) 11/17/2024 Tinea unguium (ICD-10 - B35.1) 11/17/2024 Other hammer toe(s) (acquired), left foot (ICD-10 - M20.42) 02/19/2025 Other hammer toe(s) (acquired), left foot (ICD-10 - M20.42) Plan Of Treatment Pending Test Test Name Order Date *Wound Culture 08/21/2016 *Wound Culture 08/22/2018 *Wound Culture 06/23/2019 *Wound Culture 01/18/2023 *Wound Culture 03/22/2023 *Wound Culture 10/29/2023 X ray : Foot, left 3V 02/24/2020 X ray : Foot, left 3V 12/26/2012 X ray : Foot, right 3V 10/19/2021 96908-OIRKSPY NAIL, 6 OR MORE 10/26/2021 41032-FCVHNCS NAIL, 6 OR MORE 01/05/2022 41922-DMSCAAQ NAIL, 6 OR MORE 01/23/2022 19786-RWNBUOQ NAIL, 6 OR MORE 04/20/2022 02509-IAFYJRU NAIL, 6 OR MORE 12/27/2023 30208-LYBBJXM NAIL, 6 OR MORE 06/14/2023 45354-CVYPPKK NAIL, 6 OR MORE 09/20/2023 29420-URYCTBX NAIL, 6 OR MORE 04/08/2024 76841-TNEKZBA NAIL, 6 OR MORE 08/06/2024 75816-AQYCAIM NAIL, 6 OR MORE 11/17/2024 10159-YKNYTZD NAIL, 6 OR MORE 02/19/2025 93695-KFESZME NAIL, 6 OR MORE 12/26/2012 93982-IAOGCAV NAIL, 6 OR MORE 05/27/2013 12352-RDALJRH NAIL, 6 OR MORE 01/23/2014 69940-SGZCGFX NAIL, 6 OR MORE 06/14/2017 71823-CZLZCCR NAIL, 6 OR MORE 02/22/2017 69687-RUBADRE NAIL, 6 OR MORE 08/31/2016 00448-NEIRMSC NAIL, 6 OR MORE 10/14/2013 71393-DBJLCQZ NAIL, 6 OR MORE 08/21/2016 03673-MRSWDDG NAIL, 6 OR MORE 03/10/2019 47999-HAVDXAP NAIL, 6 OR MORE 08/22/2018 92053-PNLJBJW NAIL, 6 OR MORE 11/28/2018 57411-YEODSYX NAIL, 6 OR MORE 06/23/2019 35769-SVHJRUN NAIL, 6 OR MORE 02/24/2020 44528-CPEPMZK NAIL, 6 OR MORE 07/22/2020 47010-PYAWYAL NAIL, 6 OR MORE 11/04/2020 78912-OYMQXDQ NAIL, 6 OR MORE 02/07/2021 06037-UBJNSYE NAIL, 6 OR MORE 07/27/2021 97056-Aupkqhya Plate 03/04/2020 97075-Arthkxzo Plate 06/14/2017 51775-Utgnawkx Plate 04/20/2022 12730-Wqqjucdz Plate 12/25/2022 31611- Debride <25 sq cm 04/20/2022 43378- Debride <25 sq cm 01/23/2022 30135- Debride <25 sq cm 01/05/2022 43998- Debride <25 sq cm 09/20/2023 96173- Debride <25 sq cm 04/05/2023 59521- Debride <25 sq cm 04/16/2023 23804- Debride <25 sq cm 04/30/2023 57730- Debride <25 sq cm 06/14/2023 19745- Debride <25 sq cm 02/01/2023 26023- Debride <25 sq cm 02/22/2023 88336- Debride <25 sq cm 03/08/2023 13525- Debride <25 sq cm 08/31/2016 90198- Debride <25 sq cm 01/23/2014 44032- Debride <25 sq cm 10/14/2013 07373- Debride <25 sq cm 05/27/2013 86468- Debride <25 sq cm 12/26/2012 91979- Debride <25 sq cm 01/22/2013 23074- Debride <25 sq cm 04/22/2020 70244- Debride <25 sq cm 03/04/2020 80023- Debride <25 sq cm 08/25/2021 06448- Debride <25 sq cm 09/19/2021 98602- Debride <25 sq cm 10/05/2021 15786- Debride <25 sq cm 11/28/2018 17847- Debride <25 sq cm 03/10/2019 40216- Debride <25 sq cm 08/29/2018 28251- Debride <25 sq cm 09/11/2018 36487- Debride <25 sq cm 04/07/2019 61506- Debride <25 sq cm 09/14/2016 86621- Debride <25 sq cm 07/07/2019 85342- Debride <25 sq cm 08/07/2019 89730-TMMBCEO SKIN/TISSUE 05/27/2013 21503-XBWJPUK SKIN/TISSUE 12/26/2012 31077-RNVONJK SKIN/TISSUE 01/23/2014 10206-KAWFRQW SKIN/TISSUE 08/31/2016 31394-KDMXLSH SKIN/TISSUE 08/21/2016 81763-KYWKFUT SKIN/TISSUE 10/14/2013 70982-GKJNFPD SKIN/TISSUE 03/22/2023 35417-MOPYVSF SKIN/TISSUE 12/25/2022 36094-PCLNEZK SKIN/TISSUE 01/05/2022 01029-IHASBHA SKIN/TISSUE 10/26/2021 69655-PMDVKRW SKIN/TISSUE 01/18/2023 59461 I&D ABSCESS- SIMPLE,SINGLE 021 14361 I&D ABSCESS- SIMPLE,SINGLE 020 53882 I&D ABSCESS- SIMPLE,SINGLE 020 06406- I&D ABSCESS-COMPLICATED,MULTI 80860-MBAQ SKIN LESIONS, OVER 4 08/23/19 19 71583-RXZM SKIN LESIONS, OVER 4 06/14/19 18 57160-ZQHA SKIN LESIONS, OVER 4 02/23/20 17 20379-SXFW SKIN LESIONS, OVER 4 10/15/19 14 23570-KZIA SKIN LESIONS, OVER 4 09/01/19 17 29699-QXEL SKIN LESIONS, OVER 4 01/24/20 14 49028-UMYH SKIN LESIONS, OVER 4 08/22/19 12335-RWWH SKIN LESIONS, OVER 4 05/27/20 13 38161-XWGK SKIN LESIONS, OVER 4 12/27/19 13 25938-PGQQ SKIN LESIONS, OVER 4 07/22/19 13875-RFJR SKIN LESIONS, OVER 4 11/05/19 56119-ZCQO SKIN LESIONS, OVER 4 02/08/20 21 35774-IFXW SKIN LESIONS, OVER 4 06/23/19 20 83479-LBPT SKIN LESIONS, OVER 4 02/24/20 42929-HGUA SKIN LESIONS, OVER 4 11/29/19 19 24637-FUXI SKIN LESIONS, OVER 4 03/10/20 19 38201-IHGE SKIN LESIONS, OVER 4 07/27/19 22 68481-LFJY SKIN LESIONS, OVER 4 10/27/19 54426-VPQC SKIN LESIONS, OVER 4 01/06/20 05730-HVJE SKIN LESIONS, OVER 4 04/20/20 03023-PMKU SKIN LESIONS, OVER 4 01/24/20 22 69772-KSYJ SKIN LESIONS, OVER 4 09/20/19 24 28186-TSVI SKIN LESIONS, OVER 4 04/08/20 24 10634-YTIX SKIN LESIONS, OVER 4 12/27/19 24 18533-ITLS SKIN LESIONS, OVER 4 06/14/19 24 19768-TGES SKIN LESIONS, OVER 4 02/20/20 81044-LVFL SKIN LESIONS, OVER 4 11/18/19 12186-MFEB SKIN LESIONS, OVER 4 08/06/19 39640-Xnjs. Subungual Hematoma 2 Next Appt Details Provider Name:Marianna Bergman , 05/25/2025 08:00:00 AM, [address], [place], [address], Insurance Providers Payer Name Payer Address Payer Phone Subscriber Number Group Number Insured Name Patient Relationship to Insured Coverage Start Date Coverage End Date [employer] ([facility]) [address] [place] [address] [id number] Self - patient is the insured Medical (General) History Medical History History ICD Code sinus conditions sciatica mumps measles high blood pressure headaches/migraines diabetic chicken pox asthma Diabetes mellitus blisters Fell - tripped on a curb on 04/24/2023 w ent to urgent care. Mersa PlantarFlexion of metatarsal of left stevie t M21.6X2 Hallux valgus (acquired), left foot M20. 12 Surgical History Surgery Date(Month/Year) testicular 1967 knee, meniscus 08/2015 B/L Eye Surgery -narrowing of the eye an gle - Lasar surgery 12/01,01/31 Mod Ying Left Foot, Rk + Timoteo, Hammertoe Repair w/K-Wire Fixation 10/17/2023 Hospital[place] History Reason Date[place] [facility] [place] [facility] [place]01 [facility] [place] 05/2021
--- OUTSIDE RECORDS SUMMARY | 2025-04-22 16:52 | XMS_ITS | Clinical Summary ---
Author Organization [facility]. Address [address] [place] [phone] Phone Care Team Providers Care Equalizer Operator Name Role Phone Mark Leavitt MD Primary Care Provider [phone] Allergies Active Allergy Reactions Criticality Noted Date [...] if needed for mild pain Active Glucosamine-Ahmet mlyby-Psafw-Go (GLUCOSAMINE CHONDROIT,BIOFLA V, PO) Take 1 tablet [...] Active Problems Problem Noted Date Diagnosed Date Stage 3a chronic kidney disease 10/08/2024 Proteinuria, not otherwise specified 10/08/2024 Other iron deficiency anemia 06/30/2024 Low back [...] Encounters Date Type Department Care Team Description 03/11/2025 Orders Only [facility] [address] [address] Kelin Beth ARNP Stage 3a chronic kidney disease (HCC); Hypertension; Other iron deficiency anemia from Last 3 Months Immunizations Immunization Administration Dates Next Due Pfizer SARS-COV-2 08/09/2020 [...] Sign Reading Time Taken Comments Blood Pressure 120/68 10/08/2024 2:18 PM EDT Pulse 75 10/08/2024 1:46 PM EDT Temperature - - Respiratory Rate - - Oxygen Saturation 99% 06/25/2024 2:18 PM EST Inhaled Oxygen Concentration - - Weight 115 kg (253 lb) 10/08/2024 1:46 PM EDT Height 182.9 cm (6') 08/22/2021 4:16 PM EDT Body Mass Index 34.31 08/22/2021 4:16 PM EDT Plan of Treatment Upcoming Encounters Date Type Department Care Team (Late st Contact Info) Description 04/23/2025 2:15 PM EST Office Visit [facility] [address] [address] Kelin Beth ARNP [address] [address] Health Maintenance Due Date Last Done Comments Colorectal Cancer Screening: Annual FOBT 09/08/2007 Colorectal Cancer Screening: Colonoscopy 09/08/2007 Colorectal Cancer Screening: Sigmoidoscopy 09/08/2007 Pneumococcal Vaccine: 50+ Ye ars (2 of 2 - PCV) 05/01/2015 05/01/2014 Diabetes: Hemoglobin A1C 08/22/2021 Diabetes: Ophthalmology Exam 08/22/2021 Diabetes: Pedal Pulse Checked 08/22/2021 Diabetes: Sensory Foot Exam 08/22/2021 Diabetes: Visual Foot Exam 08/22/2021 Influenza Vaccine (#1) 2025 Pneumococcal Vaccine: Peds ( 0 to 5 Years) and At-Risk Patients (6 to 49 Years) Discontinued 05/01/2014 Hepatitis B Vaccine Aged Out No longe r eligible based on patient's age to complete this topic Insurance [employer] [facility] Care Teams Equalizer Operator Relationship Specialty Start Date End Date Mark Leavitt MD [address] [facility] [address] [place] [address] PCP - General Family Medicine 03/09/21
== END 2025-04-22 14:30 | disposition home or self-care (01) ==
LOC: HO.HMCFM 13:49
PROVIDERS: PCP Family Medicine; Visit Provider Family Medicine
DX: I10 Essential (primary) hypertension (principal); E11.22 Type 2 diabetes mellitus with diabetic chronic kidney disease; N18.30 Chronic kidney disease, stage 3 unspecified; Z79.4 Long term (current) use of insulin; E03.9 Hypothyroidism, unspecified; F43.20 Adjustment disorder, unspecified; E11.65 Type 2 diabetes mellitus with hyperglycemia

== ENCOUNTER → 2025-04-22 13:48 | Outpatient (BNVA) | payer OTHER, SELFPAY | PROVIDERS: PCP Family Medicine; Visit Provider Family Medicine | DX: E11.22 Type 2 diabetes mellitus with diabetic chronic kidney disease (principal); I12.9 Hypertensive chronic kidney disease with stage 1 through stage 4 chronic kidney disease, or unspecified chronic kidney disease; E03.9 Hypothyroidism, unspecified; N18.30 Chronic kidney disease, stage 3 unspecified; F43.21 Adjustment disorder with depressed mood; Z63.4 Disappearance and death of family member; Z79.84 Long term (current) use of oral hypoglycemic drugs; Z79.4 Long term (current) use of insulin; Z79.899 Other long term (current) drug therapy | CPT/HCPCS: 83036; 96127 ==